=== PATIENT | male | born 1950 | race Caucasian/White ===

== ENCOUNTER 2018-11-05 07:55 | Outpatient (CLI) | payer MEDICARE, BC, SELFPAY ==
[2018-11-05 08:41] LABS: Absolute Basophil Count 0.02 k/cumm (0.0-0.2); Absolute Eosinophil Count 0.12 k/cumm (0.0-0.7); Absolute Lymphocyte Count 1.69 k/cumm (1.2-3.4); Absolute Monocyte Count 0.46 k/cumm (0.11-0.7); Basophils % 0.4; Eosinophils % 2.2; HCT 42.6 % (40.0-50.0); HGB 14.6 g/dL (13.5-17.5); Lymphocytes % 30.8; Mean Corp. HGB Concentration 34.3 g/dL (32.0-36.0); Mean Corpuscular Hemoglobin 34.8 pg (27.0-33.0); Mean Corpuscular Volume 101.4 fL (80-95); Mean Platelet Volume 8.4 fL (8.0-11.0); Monocytes % 8.4; Neutrophils % 58.2; Platelet Count 210 x1000/uL (130-400); RBC Distribution Width 12.8 % (11.8-14.1); White Blood Cell Count 5.49 k/cumm (4.4-10.8)
[2018-11-05 09:39] LABS: ALT 38 U/L (12-78); AST 44 U/L (15-37); Alkaline Phosphatase 51 U/L (46-116); Anion Gap 7.9 mmol/L (3-11); BUN 11 mg/dL (7-18); Bilirubin, Total 0.5 mg/dL (0.2-1.0); CO2 29.1 mmol/L (21.0-32.0); CREATININE 1.44 mg/dL (0.70-1.30); Calcium 9.1 mg/dL (8.5-10.1); Chloride 105 mmol/L (98-107); Glucose 150 mg/dL (70-100); Potassium 4.4 mmol/L (3.5-5.1); Sodium 142 mmol/L (136-145); Total Protein 6.7 g/dL (6.4-8.2)
[2018-11-05 09:42] LABS: Hemoglobin A1C 6.3 % (4.5-6.2)
[2018-11-06 16:02] LABS: CD3 75 % (62-87); CD4 39 % (35-63); CD8 35 % (10-35)
[2018-11-08 15:18] LABS: HIV-1 RNA Quantification Undetected copies/mL (UNDECT)
== END 2018-11-05 08:15 ==
PROVIDERS: PCP Internal Medicine; Visit Provider Nurse Practitioner Family
DX: B20 Human immunodeficiency virus [HIV] disease (principal); Z79.899 Other long term (current) drug therapy; R73.01 Impaired fasting glucose
CPT/HCPCS: 36415; 80053; 87536; 83036; 85025; 86359; 86360

== ENCOUNTER 2018-12-10 11:52 | Outpatient (CLI) | payer MEDICARE, BC, SELFPAY | END 2018-12-10 12:12 | PROVIDERS: PCP Internal Medicine; Referring Provider Nurse Practitioner Family; Visit Provider Internal Medicine Infectious Disease | DX: B20 Human immunodeficiency virus [HIV] disease (principal); Z79.899 Other long term (current) drug therapy | CPT/HCPCS: 99215 ==

== ENCOUNTER 2019-02-01 09:03 | Outpatient (CLI) | payer MEDICARE, BC, MEDICAID, SELFPAY ==
[2019-02-01 10:09] LABS: Cholesterol 264 mg/dL (50-200); HDL Cholesterol 54 mg/dL (40-60); LDL CHOLESTEROL 183 mg/dL (<100); Triglyceride 81 mg/dL (30-150)
== END 2019-02-01 09:23 ==
PROVIDERS: PCP Internal Medicine; Visit Provider Internal Medicine
DX: E78.00 Pure hypercholesterolemia, unspecified (principal)
CPT/HCPCS: 36415; 80061; 83721

== ENCOUNTER 2019-05-10 09:34 | Outpatient (CLI) | payer MEDICARE, BC, SELFPAY ==
[2019-05-10 10:47] LABS: Hemoglobin A1C 6.3 % (4.5-6.2)
[2019-05-10 11:53] LABS: ALT 35 U/L (12-78); AST 23 U/L (15-37); Albumin 4.1 g/dL (3.4-5.0); Alkaline Phosphatase 63 U/L (46-116); Anion Gap 8.4 mmol/L (3-11); BUN 12 mg/dL (7-18); Bilirubin, Total 0.6 mg/dL (0.2-1.0); CO2 27.6 mmol/L (21.0-32.0); CREATININE 1.29 mg/dL (0.70-1.30); Chloride 105 mmol/L (98-107); Estimated GFR 55.06 (mL/min/1.73m2); Glucose 143 mg/dL (70-100); Potassium 4.4 mmol/L (3.5-5.1); Sodium 141 mmol/L (136-145); Total Protein 6.8 g/dL (6.4-8.2)
[2019-05-13 14:43] LABS: HIV-1 RNA Quantification Undetected copies/mL (UNDECT)
== END 2019-05-10 09:54 ==
PROVIDERS: PCP Internal Medicine; Visit Provider Internal Medicine Infectious Disease
DX: B20 Human immunodeficiency virus [HIV] disease (principal); E11.9 Type 2 diabetes mellitus without complications; Z79.899 Other long term (current) drug therapy
CPT/HCPCS: 36415; 80053; 87536; 83036

== ENCOUNTER 2019-05-20 11:06 | Outpatient (CLI) | payer MEDICARE, BC, SELFPAY | END 2019-05-20 11:26 | PROVIDERS: PCP Internal Medicine; Referring Provider Nurse Practitioner Family; Visit Provider Nurse Practitioner Family | DX: B20 Human immunodeficiency virus [HIV] disease (principal); Z79.899 Other long term (current) drug therapy; Z23 Encounter for immunization | CPT/HCPCS: 90471; 90750; 99215 ==

== ENCOUNTER 2019-08-28 07:12 | Outpatient (CLI) | payer MEDICARE, BC, MEDICAID, SELFPAY ==
[2019-08-28 09:42] LABS: Calculated LDL 91 mg/dL; Cholesterol 163 mg/dL (50-200); HDL Cholesterol 61 mg/dL (40-60); Triglyceride 57 mg/dL (30-150)
== END 2019-08-28 07:32 ==
PROVIDERS: PCP Internal Medicine; Visit Provider Internal Medicine
DX: E78.00 Pure hypercholesterolemia, unspecified (principal)
CPT/HCPCS: 36415; 80061

== ENCOUNTER 2019-09-25 07:01 | Outpatient (CLI) | payer MEDICARE, BC, SELFPAY ==
[2019-09-25 07:31] LABS: Abs Immature Grans 0.01 k/cumm (0.0-0.09); Absolute Basophil Count 0.03 k/cumm (0.0-0.2); Absolute Lymphocyte Count 2.17 k/cumm (1.2-3.4); Absolute Monocyte Count 0.66 k/cumm (0.11-0.7); Absolute Neutrophil Count 5.85 k/cumm (1.2-6.7); Basophils % 0.3; Eosinophils % 1.1; HCT 42.4 % (40.0-50.0); HGB 14.6 g/dL (13.5-17.5); Immature Grans % 0.1; Lymphocytes % 24.6; Mean Corp. HGB Concentration 34.4 g/dL (32.0-36.0); Mean Corpuscular Hemoglobin 34.1 pg (27.0-33.0); Mean Corpuscular Volume 99.1 fL (80-95); Mean Platelet Volume 8.3 fL (8.0-11.0); Monocytes % 7.5; Neutrophils % 66.4; Platelet Count 237 x1000/uL (130-400); RBC 4.28 m/cumm (4.50-6.00); RBC Distribution Width 12.8 % (11.8-14.1); White Blood Cell Count 8.82 k/cumm (4.4-10.8)
[2019-09-25 08:00] LABS: Hemoglobin A1C 6.5 % (4.5-6.2)
[2019-09-25 08:59] LABS: ALT 31 U/L (16-63); AST 27 U/L (15-37); Albumin 4.1 g/dL (3.4-5.0); Alkaline Phosphatase 60 U/L (46-116); Anion Gap 10.2 mmol/L (3-11); BUN 20 mg/dL (7-18); Bilirubin, Total 0.7 mg/dL (0.2-1.0); CO2 27.8 mmol/L (21.0-32.0); CREATININE 1.33 mg/dL (0.70-1.30); Calcium 9.1 mg/dL (8.5-10.1); Chloride 103 mmol/L (98-107); Estimated GFR 53.16 (mL/min/1.73m2); Glucose 164 mg/dL (74-106); Potassium 4.2 mmol/L (3.5-5.1); Sodium 141 mmol/L (136-145); Total Protein 6.9 g/dL (6.4-8.2)
[2019-09-26 14:55] LABS: HIV-1 RNA Quantification 0 copies/mL (Undetected)
[2019-09-26 16:03] LABS: CD3 72 % (62-87); CD4 39 % (35-63); CD8 39 % (10-35)
== END 2019-09-25 07:21 ==
PROVIDERS: PCP Internal Medicine; Referring Provider Nurse Practitioner Family; Visit Provider Internal Medicine Infectious Disease
DX: B20 Human immunodeficiency virus [HIV] disease (principal); E11.9 Type 2 diabetes mellitus without complications; Z79.899 Other long term (current) drug therapy
CPT/HCPCS: 36415; 80053; 87536; 83036; 85025; 86359; 86360

== ENCOUNTER 2019-10-07 13:18 | Outpatient (CLI) | payer MEDICARE, BC, SELFPAY | END 2019-10-07 13:38 | PROVIDERS: PCP Internal Medicine; Referring Provider Nurse Practitioner Family; Visit Provider Internal Medicine Infectious Disease | DX: B20 Human immunodeficiency virus [HIV] disease (principal); Z79.899 Other long term (current) drug therapy; Z23 Encounter for immunization | CPT/HCPCS: 90471; 90472; 90620; 90750; 99215 ==

== ENCOUNTER 2020-06-03 15:56 | Outpatient (REF) | payer MEDICARE, BC, SELFPAY | END 2020-06-03 16:16 | LOC: LBN 15:56 | PROVIDERS: PCP Internal Medicine; Visit Provider Nurse Practitioner Adult Health | DX: R19.7 Diarrhea, unspecified (principal) | CPT/HCPCS: 87329 ==

== ENCOUNTER 2020-07-06 10:08 | Outpatient (CLI) | payer MEDICARE, BC, SELFPAY ==
--- NOTE | 2020-07-06 10:29 | CCCE_ITS ---
Date of service: 07/06/20 Time of Service: 10:29 Comprehensive Care Clinic Note Note: [facility] [address] [facility] [place] [address] [facility] Visit for Medical Follow Up Name: Roderick Lawson Medical Record [id number] Date of : 1950 Primary Care Provider: Ratna Reaves MD Date of Service: 07/06/2020 SUBJECTIVE CC/ HPI: Carroll has been feeling well and he and his partner who [facility], have been strictly following public health recommendations to avoid Covid 19. Neither have been out of the state or ill. He is here for Flu vaccine and a check in. He had a telehealth vsit with Dr. Bee in April and all was stable so blood work was deferred until late in the fall. He has been taking his HIV medications without any interruption ? no missed doses. His partner Alejandro monitors this as Carroll?s memory is impaired due to dementia. 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 ROS Constitutional: Good energy, appetite, sleep. Weight is stable. Has not had fever, chills, night sweats. Skin: Denies rash Head: Denies trauma, head pain Eyes: Denies visual disturbance, has reading glasses Ear/Nose/Throat: Negative Mouth/Teeth: UTD w dental Neck: No pain or stiffness CV: Denies chest pain, pressure, palpitations Respiratory: denies cough, dyspnea, hemoptysis GI: No N/V/D/C or rectal bleeding : Negative Musculoskeletal: Denies joint or back pain Endocrine: No polyuria, polydipsia; heat or cold intolerance Lymphatic: Has not noted any enlarged nodes Hematologic: No unusual bleeding, bruising Immunologic: CD4 count has never been below 200, no risk for OI Psychiatric: Some generalized Anxiety, No Depression, SI/HI Allergies/Sensitivities: NKDA Current Medications: Triumeq 600-50-300, Alpha Lipoic Acid 200mg tab daily, Vit D3, citalopram 20mg daily, Aricept 10mg q HS, Ginko Boloba 40 mg daily, Multivits and Probiotics Medical / Surgical History Update: Nothing new Psychiatric History Update: Memory does not seem worse Social History Update: Nothing new Employment: Retired Health Insurance: BC/BS and Medicare Substance Use: Tobacco: quit ETOH: some wine Drug Use: none Family History Update: Nothing new Immunization Needed? Influenza Health Maintenance: UTD w PCP OBJECTIVE Temp: 97.2, Pulse: 68, Respirations: 14 General: Appearing well Skin: clear Eyes: Non icteric Psychiatric: mood euthymic, affect normal Lab work results in Sep 2019 ? CD4 was 854/39% w an undetectable HIV viral load ASSESSMENT/PLAN HIV stable with antivirals and due for blood work in the late fall and MD visit scheduled: for Oct 2020 Lab work ordered: will be done late fall Provider of Care: Annie Wray, MSN, [employer]
== END 2020-07-06 10:28 ==
PROVIDERS: PCP Internal Medicine; Visit Provider Nurse Practitioner Family
DX: B20 Human immunodeficiency virus [HIV] disease (principal); Z79.899 Other long term (current) drug therapy; Z23 Encounter for immunization
CPT/HCPCS: 90471; 90686; 99213

== ENCOUNTER 2020-07-29 01:22 | Outpatient (CLI) | payer MEDICARE, BC, SELFPAY ==
[2020-07-29 12:48] LABS: Anion Gap 4.8 mmol/L (3-11); BUN 28 mg/dL (7-18); CO2 31.2 mmol/L (21.0-32.0); CREATININE 1.33 mg/dL (0.70-1.30); Calcium 8.6 mg/dL (8.5-10.1); Calculated LDL 64 mg/dL (<100); Chloride 105 mmol/L (98-107); Cholesterol 151 mg/dL (<200); Glucose 155 mg/dL (74-106); HDL Cholesterol 52 mg/dL (40-60); Potassium 4.1 mmol/L (3.5-5.1); Sodium 141 mmol/L (136-145); Triglyceride 177 mg/dL (<150)
== END 2020-07-29 01:42 ==
PROVIDERS: PCP Internal Medicine; Visit Provider Internal Medicine
DX: E78.00 Pure hypercholesterolemia, unspecified (principal); R73.01 Impaired fasting glucose
CPT/HCPCS: 36415; 80048; 80061

== ENCOUNTER 2021-02-25 03:25 | Outpatient (CLI) | payer MEDICARE, BC, SELFPAY ==
[2021-02-25 14:26] LABS: Abs Immature Grans 0.02 10^3/uL (0.0-0.06); Absolute Basophil Count 0.04 10^3/uL (0.0-0.2); Absolute Eosinophil Count 0.16 10^3/uL (0.0-0.7); Absolute Lymphocyte Count 1.72 10^3/uL (1.2-3.4); Absolute Monocyte Count 0.52 10^3/uL (0.1-0.8); Absolute Neutrophil Count 4.84 10^3/uL (1.2-6.7); Basophils % 0.5; Eosinophils % 2.2; Immature Grans % 0.3; Lymphocytes % 23.6; MCH 33.9 pg (27.0-33.0); MCHC 33.3 % (32.0-36.0); MCV 101.7 fL (80-95); MPV 8.4 fL (8.0-11.0); Monocytes % 7.1; Neutrophils % 66.3; Nucleated RBC 0 %; Platelet Count 224 10^3/uL (130-400); RBC 4.13 10^6/uL (4.36-5.78); RDW 12.7 % (11.8-14.1); RDW-SD 47.7 fL
[2021-02-25 14:38] LABS: Hemoglobin A1C 6.5 % (<5.7)
[2021-02-25 16:14] LABS: ALT 29 U/L (16-63); AST 16 U/L (15-37); Albumin 4.1 g/dL (3.4-5.0); Alkaline Phosphatase 63 U/L (46-116); Anion Gap 8.1 mmol/L (3-11); BUN 23 mg/dL (7-18); Bilirubin, Total 0.6 mg/dL (0.2-1.0); CO2 28.9 mmol/L (21.0-32.0); CREATININE 1.3 mg/dL (0.70-1.30); Calcium 8.8 mg/dL (8.5-10.1); Chloride 104 mmol/L (98-107); Estimated GFR 54.26 (mL/min/1.73m2); Glucose 111 mg/dL (74-106); Potassium 4.7 mmol/L (3.5-5.1); Sodium 141 mmol/L (136-145); Total Protein 6.5 g/dL (6.4-8.2)
[2021-03-01 10:34] LABS: 4/8 Ratio 0.78 (>=0.90); Absolute CD3 1353 Cells/uL (840-2,669); Absolute CD8 842 Cells/uL (154-1,097); CD3 73 % (56-84); CD4 35 % (31-64); CD8 45 % (9-39)
[2021-03-01 14:31] LABS: HIV 1 RNA Qualitative Undetected copies/mL (Undetected)
== END 2021-02-25 03:26 | disposition home or self-care (01) ==
LOC: LBO 03:26
PROVIDERS: PCP Internal Medicine; Visit Provider Internal Medicine Infectious Disease
DX: E11.9 Type 2 diabetes mellitus without complications (principal); B20 Human immunodeficiency virus [HIV] disease; Z79.899 Other long term (current) drug therapy
CPT/HCPCS: 36415; 80053; 87536; 83036; 85025; 86359; 86360

== ENCOUNTER 2021-07-30 02:12 | Outpatient (CLI) | payer MEDICARE, BC, SELFPAY ==
[2021-07-30 09:19] LABS: COMMENT (LAB VIEW ONLY) 295.14 mg/dL; Microalb ug/mg Crea 8.4 ug/mg Cr
[2021-07-30 09:43] LABS: Calculated LDL 78 mg/dL (<100); Cholesterol 141 mg/dL (<200); HDL Cholesterol 55 mg/dL (40-60); TSH 1.59 uIU/mL (0.36-3.74); Triglyceride 42 mg/dL (<150); Vitamin B12 1016 pg/mL (193-986)
== END 2021-07-30 02:13 | disposition home or self-care (01) ==
LOC: LBO 02:12
PROVIDERS: PCP Internal Medicine; Visit Provider Internal Medicine
DX: D75.89 Other specified diseases of blood and blood-forming organs (principal); D64.9 Anemia, unspecified; E11.9 Type 2 diabetes mellitus without complications; R53.83 Other fatigue; E78.00 Pure hypercholesterolemia, unspecified; R41.9 Unspecified symptoms and signs involving cognitive functions and awareness; Z79.899 Other long term (current) drug therapy
CPT/HCPCS: 36415; 80061; 82043; 82570; 82607; 84443

== ENCOUNTER 2021-09-14 04:01 | Outpatient (CLI) | payer MEDICARE, BC, SELFPAY ==
[2021-09-14 09:32] LABS: Abs Immature Grans 0.04 10^3/uL (0.0-0.06); Absolute Basophil Count 0.04 10^3/uL (0.0-0.2); Absolute Eosinophil Count 0.06 10^3/uL (0.0-0.7); Absolute Monocyte Count 0.42 10^3/uL (0.1-0.8); Absolute Neutrophil Count 5.64 10^3/uL (1.2-6.7); Basophils % 0.5; Eosinophils % 0.8; Immature Grans % 0.5; Lymphocytes % 17.3; MCH 33.7 pg (27.0-33.0); MCHC 33.3 % (32.0-36.0); MCV 101.2 fL (80-95); MPV 8.7 fL (8.0-11.0); Monocytes % 5.6; Neutrophils % 75.3; Nucleated RBC 0 %; Platelet Count 224 10^3/uL (130-400); RBC 4.15 10^6/uL (4.36-5.78); RDW 12.6 % (11.8-14.1); RDW-SD 47.6 fL
[2021-09-14 10:00] LABS: Hemoglobin A1C 6.3 % (<5.7)
[2021-09-14 11:19] LABS: ALT 33 U/L (16-63); AST 22 U/L (15-37); Albumin 4.1 g/dL (3.4-5.0); Alkaline Phosphatase 69 U/L (46-116); BUN 28 mg/dL (7-18); Bilirubin, Total 0.6 mg/dL (0.2-1.0); CREATININE 1.4 mg/dL (0.70-1.30); Calcium 8.6 mg/dL (8.5-10.1); Calculated LDL 77 mg/dL (<100); Chloride 103 mmol/L (98-107); Cholesterol 139 mg/dL (<200); Estimated GFR 49.82 (mL/min/1.73m2); Glucose 153 mg/dL (74-106); HDL Cholesterol 56 mg/dL (40-60); Potassium 4.8 mmol/L (3.5-5.1); Sodium 139 mmol/L (136-145); Total Protein 6.7 g/dL (6.4-8.2); Triglyceride 31 mg/dL (<150)
[2021-09-17 09:27] LABS: 4/8 Ratio 0.79 (>=0.90); Absolute CD3 1079 Cells/uL (840-2,669); Absolute CD8 670 Cells/uL (154-1,097); CD3 73 % (56-84); CD4 36 % (31-64); CD8 46 % (9-39)
[2021-09-17 12:12] LABS: HIV 1 RNA Qualitative Detected copies/mL (Undetected); HIV 1 RNA Quantitative <20 copies/mL (Undetected)
== END 2021-09-14 04:02 | disposition home or self-care (01) ==
PROVIDERS: PCP Internal Medicine; Visit Provider Nurse Practitioner Family
DX: Z79.899 Other long term (current) drug therapy (principal); B20 Human immunodeficiency virus [HIV] disease; R73.01 Impaired fasting glucose
CPT/HCPCS: 36415; 80053; 80061; 87536; 83036; 85025; 86359; 86360

== ENCOUNTER 2022-03-08 02:05 | Outpatient (CLI) | payer MEDICARE, BC, SELFPAY ==
[2022-03-08 09:26] LABS: ALT 40 U/L (16-63); AST 24 U/L (15-37); Albumin 4.2 g/dL (3.4-5.0); Alkaline Phosphatase 81 U/L (46-116); Anion Gap 9.7 mmol/L (3-11); BUN 15 mg/dL (7-18); Bilirubin, Total 0.5 mg/dL (0.2-1.0); CO2 25.3 mmol/L (21.0-32.0); CREATININE 1.3 mg/dL (0.70-1.30); Calcium 8.6 mg/dL (8.5-10.1); Chloride 107 mmol/L (98-107); Estimated GFR 54.11 (mL/min/1.73m2); Glucose 123 mg/dL (74-106); Potassium 3.8 mmol/L (3.5-5.1); Sodium 142 mmol/L (136-145); Total Protein 6.8 g/dL (6.4-8.2)
[2022-03-08 10:16] LABS: Hemoglobin A1C 6.2 % (<5.7)
[2022-03-10 15:15] LABS: HIV 1 RNA Qualitative Undetected copies/mL (Undetected)
== END 2022-03-08 02:06 | disposition home or self-care (01) ==
LOC: LBO 02:05
PROVIDERS: PCP Internal Medicine; Visit Provider Nurse Practitioner Family
DX: B20 Human immunodeficiency virus [HIV] disease (principal); Z79.899 Other long term (current) drug therapy; E11.9 Type 2 diabetes mellitus without complications
CPT/HCPCS: 36415; 80053; 87536; 83036

== ENCOUNTER 2022-03-14 10:11 | Emergency (ER) | payer MEDICARE, BC, SELFPAY ==
[2022-03-14 10:35] VITALS: BP 109/70; PULSE 98; RESP 16; TEMP 36.3; O2SAT 96
[2022-03-14 11:13] VITALS: BP 107/74; PULSE 90; RESP 17; TEMP 36.7; O2SAT 95
[2022-03-14 11:58] VITALS: RESP 18
--- NOTE | 2022-03-14 12:30 | DI.RAD_ITS ---
Exam(s) XR PORTABLE CHEST AP EXAM: XR PORTABLE CHEST AP CLINICAL HISTORY: weakness TECHNIQUE: 2D digital imaging was performed. COMPARISON: No exams were available for comparison FINDINGS: LUNGS: Clear. No pleural abnormality seen. HEART: Normal. AORTA: Normal. BONES: Unremarkable for age. Soft tissues: Unremarkable. IMPRESSION: No acute findings. DATA REPOSITORY: RADIATION DOSE DELIVERED:
--- NOTE | 2022-03-14 12:33 | W.ED.GENAD ---
Discharge Plan Disposition Patient Disposition: HOME Condition: Stable Discharge Details Clinical Impression: COVID, Hematuria Primary Care Provider: Daniella Reaves ED Provider: Juanita Tolbert Home Meds and New Rx's Prescriptions: New Paxlovid (EUA) 150 mg x 2- 100 mg tablet See Rx Instructions .ROUTE .COMPLEX Qty: 30 0RF Rx Instructions: take TWO 150 mg tablets of nirmatrelvir with ONE 100 mg tablet of ritonavir twice daily for 5 days Continued acetylcarnitin HCl-a lipoic ac 400-200 mg capsule 1 cap PO DAILY alpha lipoic acid 200 mg capsule PO DAILY citalopram 20 mg tablet 20 mg PO DAILY cholecalciferol (vitamin D3) [Vitamin D3] 125 mcg (5,000 unit) tablet 5,000 unit PO DAILY amino acids Capsule See Rx Instructions PO .COMPLEX Label Comments: mixed in tea Rx Instructions: 4 Tblsp once a day [place] Dr. Rossi Lr, [facility] epinephrine [EpiPen 2-Kevin] 0.3 mg/0.3 mL auto-injector 0.3 mg IM PRN Qty: 2 1RF Rx Instructions: inject once if stung by bee and call 911 atorvastatin 40 mg tablet 40 mg PO DAILY Qty: 90 3RF Metamucil Sugar-Free (aspart) 3.4 gram/5.8 gram powder 1 pwd PO DAILY Triumeq 1 EACH tablet 1 ea PO DAILY (DME) FreeStyle Lite Strips 1 EACH strip 1 ea Miscellaneous DAILY Qty: 90 (DME) lancets [FreeStyle Lancets] 1 EACH misc 1 ea Miscellaneous DAILY Qty: 90 memantine [Namenda XR] 14 mg capsule,sprinkle,ER 24hr 28 mg PO HS Rx Instructions: NOTE DATED 05/22/20 12/25/20 28 mg donepezil [Aricept] 10 mg tablet 20 mg PO DAILY Rx Instructions: 12/25/20 Increase to 12.5 for 2 weeks, then 15 mg nightly. If loose stools/diarrhea, can reduce back to 10 mg multivitamin 1 EACH capsule 1 ea PO DAILY Super B Complex + C 150 MG tablet 150 mg PO DAILY Discharge Instructions Instructions: Hematuria (ED), Viral Syndrome (ED) Additional Instructions: You have been prescribed Paxlovid. You will need to stop taking your atorvastatin while you are taking Paxlovid. Please do not take atorvastatin until 3 days after you have completed the entire Paxlovid course. Please return immediately to the emergency department if you develop any new or worsening symptoms, if your condition does not improve as expected, or if you become otherwise concerned. It is extremely important that you call soon as possible to make an appointment to be seen in follow-up for this visit by your primary care doctor. Referrals: Daniella Reaves MD [Primary Care Provider] - Discharge Data Discharge Date/Time-TO BE ENTERED AT DEPARTURE: 03/14/22 15:58 Medical Decision Making Roderick Lawson is a 71-year-old man with a history of HIV, hyperlipidemia, Alzheimer's disease, dws-ytivpdo-jxcykyhpw diabetes presenting to the emergency department with generalized weakness. Patient is accompanied by his roommate who also provides the history. Patient's roommate reports that over the past few days patient has been much less active than usual, has to be prompted to get up from lying down or sitting after prolonged period, which is not typical for him. Patient also seems to not be eating and drinking as much as usual over the past few days per his roommate. Is removed concerned that patient may be getting dehydrated, particularly with the high heat over the past 2 days. Patient has been able to walk unassisted and move about his house as usual. Patient denies any symptoms: No fevers, no pain, no vomiting, no shortness of breath, no cough, no urinary changes, no numbness, no focal weakness. He does report chronic unchanged diarrhea secondary to his Aricept. On exam patient is well and nontoxic-appearing. Appears mildly dehydrated. Nonfocal neurologic exam. Unclear etiology of symptoms, concern for possible occult pneumonia, UTI, metabolic/electrolyte derangement, intra-cranial process, other. Exam/history at this time is not consistent with acute coronary syndrome, sepsis, pulmonary embolism, acute aortic process, meningitis, subarachnoid hemorrhage. Plan for IV placement, screening labs, IVF hydration, CT brain. Labs reviewed, covid+. I had a lengthy discussion with Pt and his sister re: covid treatment with paxlovid vs MAB infusion vs supportive care. They elect for paxlovid. I discussed paxlovid/home medication interaction with pharmacy, who relayed only interaction on Pt's home list is with atorvastatin, which should be stopped until 3 days after completion of paxlovid course. I had a discussion with Patient and his sister regarding return to emergency department precautions, home care, and importance of outpatient follow-up. Pt and his sister verbalize understanding of the plan and are amenable. Patient discharged to home with clear plan for outpatient follow-up. All questions were answered. Disposition decision was made weighing the risks and benefits of hospitalization versus outpatient treatment, the risk for further decompensation, and the patient's wishes. Medical Records Medical records reviewed: Yes I reviewed the patient's medical records. Imaging Data Radiologic Study: Attestation: I personally reviewed and interpreted this imaging study as follows: Radiologist's impression: EXAM:? XR PORTABLE CHEST AP CLINICAL HISTORY:? weakness TECHNIQUE:? 2D digital imaging was performed. COMPARISON:? No exams were available for comparison FINDINGS: LUNGS: Clear. No pleural abnormality seen. HEART: Normal. AORTA: Normal. BONES: Unremarkable for age.? Soft tissues: Unremarkable. IMPRESSION: No acute? findings. EXAM: ? CT HEAD WO CLINICAL HISTORY: ? AMS. ? TECHNIQUE:? Imaging Protocol: Axial computed tomography images with coronal and sagittal reformatted images were created and reviewed COMPARISON:? MR MRI - BRAIN WO CONTRAST from 04/22/2015 FINDINGS: Ventricles and Extra axial spaces: Normal in size and morphology for the patient's age. Hemorrhage: None. Cerebral parenchyma: ? Zgqt-mn-dyjlcxbg atrophy.? Prominent white matter changes consistent with small vessel disease.? No acute infarct visible. Midline shift: None. Brainstem/Cerebellum: Normal. Calvarium: Normal. Visualized Paranasal sinuses/Mastoids: Mild ethmoid sinus disease. IMPRESSION: No acute abnormality. Lab Data Lab results reviewed: Yes I reviewed the patient's lab results. Labs: Laboratory Tests Range/Units 03/14/22 03/14/22 03/14/22 12:40 12:40 12:45 WBC (4.4-10.8) 10^3/uL 10.10 RBC (4.36-5.78) 10^6/uL 4.47 Hgb (13.5-17.5) g/dL 14.2 Hct (40.0-50.0) % 42.7 MCV (80-95) fL 96 H MCH (27.0-33.0) pg 31.8 MCHC (32.0-36.0) % 33.3 RDW (11.8-14.1) % 13.0 Plt Count (130-400) 10^3/uL 249 MPV (8.0-11.0) fL 10.8 Immature Gran % 0.3 Neutrophils % 56.8 Lymphocytes % 15.2 Monocytes % 7.6 Eosinophils % 19.4 Basophils % 0.7 Nucleated RBC % (0.0-0.3) % 0.0 Absolute Neutrophils (1.2-6.7) 10^3/uL 5.73 Absolute Lymphocytes (1.2-3.4) 10^3/uL 1.54 Absolute Monocytes (0.1-0.8) 10^3/uL 0.77 Absolute Eosinophils (0.0-0.7) 10^3/uL 1.96 H Absolute Basophils (0.0-0.2) 10^3/uL 0.07 Sodium (136-145) mmol/L 143 Potassium (3.5-5.1) mmol/L 3.8 Chloride (98-107) mmol/L 104 Carbon Dioxide (21.0-32.0) mmol/L 30.0 Anion Gap (3-11) mmol/L 9.0 BUN (7-18) mg/dL 14 Creatinine (0.70-1.30) mg/dL 0.9 Estimated GFR/1.73 m2 (mL/min/1.73m2) >= 60.00 Glucose (74-106) mg/dL 114 H Calcium (8.5-10.1) mg/dL 9.5 Magnesium (1.8-2.4) mg/dL 2.2 Total Bilirubin (0.2-1.0) mg/dL 1.0 AST (15-37) U/L 16 ALT (16-63) U/L 34 Alkaline Phosphatase (46-116) U/L 91 Troponin I (<or=60) ng/L < 50 Total Protein (6.4-8.2) g/dL 7.9 Albumin (3.4-5.0) g/dL 3.8 TSH (0.36-3.74) uIU/mL 2.23 Urine Color (Yellow) Urine Clarity (Clear) Urine pH (5-8) Ur Specific [place] (1.005-1.025) Urine Protein (Negative) mg/dL Urine Ketones (Negative) mg/dL Urine Blood (Negative) Urine Nitrite (Negative) Urine Bilirubin (Negative) Urine Urobilinogen (Up TO 0.2) EU/dL Ur Leukocyte Esterase (Negative) Urine RBC (0-2) HPF Urine WBC (0-5) HPF Ur Epithelial Cells (Negative) HPF Urine Crystals (Negative) HPF Urine Bacteria (Negative) HPF Urine Casts (Negative) LPF Urine Mucus (Negative) Ur Culture Indicated? Urine Glucose (Negative) mg/dL COVID-19 Source Nasopharynx SARS-CoV-2 (PCR) (Negative) Positive A Influenza Type A (PCR) (Negative) Negative Influenza Type B (PCR) (Negative) Negative RSV (PCR) (Negative) Negative Range/Units 03/14/22 13:40 WBC (4.4-10.8) 10^3/uL RBC (4.36-5.78) 10^6/uL Hgb (13.5-17.5) g/dL Hct (40.0-50.0) % MCV (80-95) fL MCH (27.0-33.0) pg MCHC (32.0-36.0) % RDW (11.8-14.1) % Plt Count (130-400) 10^3/uL MPV (8.0-11.0) fL Immature Gran % Neutrophils % Lymphocytes % Monocytes % Eosinophils % Basophils % Nucleated RBC % (0.0-0.3) % Absolute Neutrophils (1.2-6.7) 10^3/uL Absolute Lymphocytes (1.2-3.4) 10^3/uL Absolute Monocytes (0.1-0.8) 10^3/uL Absolute Eosinophils (0.0-0.7) 10^3/uL Absolute Basophils (0.0-0.2) 10^3/uL Sodium (136-145) mmol/L Potassium (3.5-5.1) mmol/L Chloride (98-107) mmol/L Carbon Dioxide (21.0-32.0) mmol/L Anion Gap (3-11) mmol/L BUN (7-18) mg/dL Creatinine (0.70-1.30) mg/dL Estimated GFR/1.73 m2 (mL/min/1.73m2) Glucose (74-106) mg/dL Calcium (8.5-10.1) mg/dL Magnesium (1.8-2.4) mg/dL Total Bilirubin (0.2-1.0) mg/dL AST (15-37) U/L ALT (16-63) U/L Alkaline Phosphatase (46-116) U/L Troponin I (<or=60) ng/L Total Protein (6.4-8.2) g/dL Albumin (3.4-5.0) g/dL TSH (0.36-3.74) uIU/mL Urine Color (Yellow) Yellow Urine Clarity (Clear) Clear Urine pH (5-8) 6.0 Ur Specific [place] (1.005-1.025) >= 1.030 H Urine Protein (Negative) mg/dL >=300 H Urine Ketones (Negative) mg/dL Negative Urine Blood (Negative) Moderate H Urine Nitrite (Negative) Negative Urine Bilirubin (Negative) Negative Urine Urobilinogen (Up TO 0.2) EU/dL 0.2 Ur Leukocyte Esterase (Negative) Negative Urine RBC (0-2) HPF 5-10 H Urine WBC (0-5) HPF 0-2 Ur Epithelial Cells (Negative) HPF Rare Urine Crystals (Negative) HPF Negative Urine Bacteria (Negative) HPF Negative Urine Casts (Negative) LPF 5-10 Fine Granular Urine Mucus (Negative) Trace Ur Culture Indicated? No Urine Glucose (Negative) mg/dL 500 H COVID-19 Source SARS-CoV-2 (PCR) (Negative) Influenza Type A (PCR) (Negative) Influenza Type B (PCR) (Negative) RSV (PCR) (Negative) HPI General Date/Time Provider Initiated Documentation: 03/14/22 10:12. Limitations to Documentation: no limitations. Information obtained by: patient, family, RN notes reviewed and old records reviewed. HPI Narrative: Roderick Lawson is a 71-year-old man with a history of HIV, hyperlipidemia, Alzheimer's disease, gvi-ygqnbto-rdxzaucke diabetes presenting to the emergency department with generalized weakness. Patient is accompanied by his roommate who also provides the history. Patient's roommate reports that over the past few days patient has been much less active than usual, has to be prompted to get up from lying down or sitting after prolonged period, which is not typical for him. Patient also seems to not be eating and drinking as much as usual over the past few days per his roommate. Is removed concerned that patient may be getting dehydrated, particularly with the high heat over the past 2 days. Patient has been able to walk unassisted and move about his house as usual. Patient denies any symptoms: No fevers, no pain, no vomiting, no shortness of breath, no cough, no urinary changes, no numbness, no focal weakness. He does report chronic unchanged diarrhea secondary to his Aricept. Related Data Home Medications Medication Instructions Recorded Confirmed abacavir 600 mg-dolutegravir 50 1 ea PO DAILY 03/02/16 03/14/22 mg-lamivudine 300 mg tablet (Triumeq) multivitamin 1 ea PO DAILY 04/19/16 03/14/22 vitamin B comp with C no.4 150 mg 150 mg PO DAILY 04/19/16 03/14/22 tablet (Super B Complex + C) blood sugar diagnostic (FreeStyle #90 strips 09/27/16 02/02/22 Lite Strips) lancets 28 gauge (FreeStyle #90 ea 09/27/16 02/02/22 Lancets) acetylcarnitine HCl 400 mg-alpha 1 cap PO DAILY 01/28/20 03/14/22 lipoic acid 200 mg capsule alpha lipoic acid 200 mg capsule mg PO DAILY 01/28/20 02/02/22 cholecalciferol (vitamin D3) 125 5,000 unit PO DAILY 01/28/20 03/14/22 mcg (5,000 unit) tablet (Vitamin D3) citalopram 20 mg tablet 20 mg PO DAILY 01/28/20 03/14/22 memantine 14 mg capsule 28 mg PO HS 12/25/20 03/14/22 sprinkle,extended release 24hr (Namenda XR) donepezil 10 mg tablet (Aricept) 20 mg PO DAILY 07/06/21 03/14/22 amino acids See Rx Instructions PO .COMPLEX 07/27/21 03/14/22 atorvastatin 40 mg tablet 40 mg PO DAILY cholesterol #90 tabs 07/27/21 03/14/22 epinephrine 0.3 mg/0.3 mL 0.3 mg (0.3 mL) IM PRN ##2 07/27/21 03/14/22 injection, auto-injector (EpiPen 2-Kevin) psyllium husk (aspartame) 3.4 1 pwd PO DAILY diarrhea 02/02/22 03/14/22 gram/5.8 gram oral powder (Metamucil Sugar-Free (aspartame)) nirmatrelvir 300 mg (150 mg x See Rx Instructions PO .COMPLEX 03/14/22 2)-ritonavir 100 mg tablet (EUA) #30 tabs (Paxlovid 300 mg () Previous Rx's Medication Instructions Recorded atorvastatin 40 mg tablet 40 mg PO DAILY cholesterol #90 tabs 07/27/21 epinephrine 0.3 mg/0.3 mL 0.3 mg (0.3 mL) IM PRN ##2 07/27/21 injection, auto-injector (EpiPen 2-Kevin) nirmatrelvir 300 mg (150 mg x See Rx Instructions PO .COMPLEX 03/14/22 2)-ritonavir 100 mg tablet (EUA) #30 tabs (Paxlovid 300 mg () Allergies Allergy/AdvReac Type Severity Reaction Status Date / Time poison kristin extract Allergy Unknown blisters, Verified 03/14/22 10:39 rash, itching Bee stings Allergy Severe anaphylaxis Uncoded 03/14/22 10:39 General Stated Complaint: GenMedical CHRIS: 3 Review of Systems Narrative: Constitutional: denies fevers Eyes: denies eye pain ENT: denies ear pain, dental pain, sore throat Cardiovascular: denies chest pain, edema Respiratory: denies SOB, cough GI: denies abdominal pain, vomiting, reports chronic unchanged diarrhea : denies flank pain MSK: denies back pain, neck pain, arthralgias, myalgias Skin: denies rash Neuro: denies headaches, numbness, reports generalized weakness PFSH All Active Problems (Updated 03/14/22 @ 15:00 by Juanita Tolbert MD) COVID (Acute) Hematuria (Acute) Snoring (Acute) 12/21/21 [facility] Sleep - Polysomography recommended and f/u 02/19/22 Macrocytosis without anemia (Acute) Type 2 diabetes mellitus without complication (Acute) 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) Depression (Chronic 03/27/15) Pure hypercholesterolemia (Acute 04/13/15) 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) [place]aphobia= fear of bears Memory loss (Acute 03/27/15) MRI 04-22-15: cerebral atrophy & white matter changes; atrophy greater than expected for age Irritable bowel syndrome with diarrhea (Acute 04/13/15) Impaired fasting glucose (Chronic 03/06/15) 03/06/15 fasting glucose 150 2013: HbA1c 6.6 HIV (human immunodeficiency virus infection) (Acute 03/27/05) HAART w/ undetectable viral load [place] cardiac risk 10-20% in next 10 years (Acute 03/02/16) 13.2% in 2016; 14.7 2019 Anemia (Acute 09/13/16) Medical History Depression HIV (human immunodeficiency virus infection) IBS (irritable bowel syndrome) Memory loss Mild dementia Surgical History (Updated 08/08/18 @ 14:37 by EXPO IA) Colonoscopy - MAC (11/21/16) Tonsillectomy and adenoidectomy Family History Mother Dementia Father Dementia Hyperlipidemia Sister Arthritis Psoriatic arthritis Brother No problems noted. Grandmother Diabetes Grandmother Diabetes Social History Smoking/Tobacco Use Status: Never Smoking risk assessment performed?: Yes Alcohol Intake: current Alcohol Intake frequency: a few times a month Drug use: Never Substance use type: does not use Household members: significant other Housing: house Number of Children: 0 Communication Needs: Corrective Lenses Education Level: other Current gender identity: male What is your relationship status?: living with partner How often do you talk on the phone with friends or family?: three or more times per week Panel score (0-1 are the most socially isolated patients): 2 What type of physical activity do you participate in: none Seatbelt use: always Drive intox 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 Working smoke detector in home: Yes Fire extinguisher in home: Yes Carbon monox detector in home: Yes Do you feel safe at home: Yes Do you feel safe in your relationship?: Yes Exam Narrative Exam Narrative: Constitutional: well and ard-abuge-rxspfnmqh, pleasant, conversing normally HENT: head atraumatic/normocephalic/normal inspection, mucous membranes moist Eyes: conjunctiva normal, sclera normal, pupils 3mm b/l Neck: no stridor, normal ROM, trachea midline Chest: normal inspection Resp: normal work of breathing, LCTAB Cardio: normal rate, normal rhythm, no murmur appreciated GI: abdomen soft, non-tender, non-distended Back: normal inspection, no rash Skin: warm, dry, normal color, no rash Neuro: alert, not altered, grossly non-focal, normal tone Ext: no edema, no posterior calf tenderness to palpation Psych: normal mood, flat affect Course Vital Signs Vital signs: Vital Signs Temperature 36.3 C L 03/14/22 10:35 Pulse 98 H 03/14/22 10:35 Respiratory Rate 16 03/14/22 10:35 Blood Pressure 109/70 03/14/22 10:35 Pulse Oximetry 96 03/14/22 10:35 Temperature 36.7 C 03/14/22 11:13 Temperature Source Oral 03/14/22 11:13 Pulse 90 03/14/22 11:13 Respiratory Rate 18 03/14/22 11:58 Respiratory Effort 03/14/22 11:58 Respiratory Depth Normal 03/14/22 11:58 Respiratory Pattern Normal 03/14/22 11:58 Blood Pressure 107/74 03/14/22 11:13 Blood Pressure Position Sitting 03/14/22 10:35 Pulse Oximetry 95 03/14/22 11:13 Oxygen Delivery Method Room Air 03/14/22 11:13 Oxygen Flow Rate 0 03/14/22 11:13 Pain Level 0 03/14/22 10:35
[2022-03-14 13:06] LABS: Abs Immature Grans 0.03 10^3/uL (0.0-0.06); Absolute Basophil Count 0.07 10^3/uL (0.0-0.2); Absolute Eosinophil Count 1.96 10^3/uL (0.0-0.7); Absolute Lymphocyte Count 1.54 10^3/uL (1.2-3.4); Absolute Monocyte Count 0.77 10^3/uL (0.1-0.8); Absolute Neutrophil Count 5.73 10^3/uL (1.2-6.7); Basophils % 0.7; Eosinophils % 19.4; HCT 42.7 % (40.0-50.0); HGB 14.2 g/dL (13.5-17.5); Immature Grans % 0.3; Lymphocytes % 15.2; MCH 31.8 pg (27.0-33.0); MCHC 33.3 % (32.0-36.0); MCV 96 fL (80-95); MPV 10.8 fL (8.0-11.0); Monocytes % 7.6; Neutrophils % 56.8; Platelet Count 249 10^3/uL (130-400); RBC 4.47 10^6/uL (4.36-5.78); RDW-SD 45.7 fL
[2022-03-14 13:20] LABS: ALT 34 U/L (16-63); AST 16 U/L (15-37); Albumin 3.8 g/dL (3.4-5.0); Alkaline Phosphatase 91 U/L (46-116); BUN 14 mg/dL (7-18); CREATININE 0.9 mg/dL (0.70-1.30); Calcium 9.5 mg/dL (8.5-10.1); Chloride 104 mmol/L (98-107); Glucose 114 mg/dL (74-106); Magnesium 2.2 mg/dL (1.8-2.4); Potassium 3.8 mmol/L (3.5-5.1); Sodium 143 mmol/L (136-145); TSH (W/Ref FT4) 2.23 uIU/mL (0.36-3.74); Total Protein 7.9 g/dL (6.4-8.2); Troponin I < 50 ng/L (<or=60)
--- NOTE | 2022-03-14 13:30 | DI.CT_ITS ---
Exam(s) CT HEAD WO EXAM: CT HEAD WO CLINICAL HISTORY: AMS. TECHNIQUE: Imaging Protocol: Axial computed tomography images with coronal and sagittal reformatted images were created and reviewed COMPARISON: MR MRI - BRAIN WO CONTRAST from 04/22/2015 FINDINGS: Ventricles and Extra axial spaces: Normal in size and morphology for the patient's age. Hemorrhage: None. Cerebral parenchyma: Javm-sd-lwljeosg atrophy. Prominent white matter changes consistent with smal l vessel disease. No acute infarct visible. Midline shift: None. Brainstem/Cerebellum: Normal. Calvarium: Normal. Visualized Paranasal sinuses/Mastoids: Mild ethmoid sinus disease. IMPRESSION: No acute abnormality. RADIATION DOSE DELIVERED: 773.54mGy.cm Total DLP 773.54mGy.cm Total DLP DATA REPOSITORY: All CT scans at this facility are submitted to the National Radiology Data Registry (NRDR) Dose Index Registry (DIR) with the [employer] (A[employer]). RADIATION OPTIMIZATION: All CT scans at this facility use at least one of these dose optimization te chniques: automated exposure control; mA and/or kV adjustment per patient size (includes targeted exa ms where dose is matched to clinical indication); or iterative reconstruction.
[2022-03-14 13:51] LABS: Bilirubin Negative (Negative); Blood Moderate (Negative); Clarity Clear (Clear); Glucose 500 mg/dL (Negative); Ketones Negative (Negative); Leukocyte Esterase Negative (Negative); Nitrite Negative (Negative); Specific Gravity >= 1.030 (1.005-1.025); Urobilinogen 0.2 EU/dL (Up TO 0.2)
[2022-03-14 13:58] LABS: Bacteria Negative HPF (Negative); C & S Indicated? No; Crystals Negative HPF (Negative); Epithelial Cells Rare HPF (Negative); Mucus Trace (Negative); WBC 0-2 HPF (0-5)
[2022-03-14 14:13] LABS: Influenza A PCR Negative (Negative); Influenza B PCR Negative (Negative); RSV PCR Negative (Negative)
[2022-03-14 14:15] LABS: COVID-19 PCR Positive (Negative); Source Nasopharynx
[2022-03-14] MEDS: Normal Saline 1,000 ML 1000 ML IV (15:32)
[2022-03-14 15:59] VITALS: PULSE 71; RESP 18; O2SAT 99
== END 2022-03-14 15:58 | disposition home or self-care (01) ==
PROVIDERS: Emergency Provider Student in an Organized Health Care Education/Training Program; PCP Internal Medicine
DX: S06.0X0A Concussion without loss of consciousness, initial encounter (principal); W18.39XA Other fall on same level, initial encounter
CPT/HCPCS: 80053; 87637; 96360; 99284; 70450; 71045; 81003; 81015; 83735; 84443; 84484; 85025

== ENCOUNTER 2022-05-09 02:22 | Outpatient (CLI) | payer MEDICARE, BC, SELFPAY ==
[2022-05-09 16:12] LABS: Abs Immature Grans 0.02 10^3/uL (0.0-0.06); Absolute Basophil Count 0.04 10^3/uL (0.0-0.2); Absolute Eosinophil Count 0.15 10^3/uL (0.0-0.7); Absolute Lymphocyte Count 2.41 10^3/uL (1.2-3.4); Absolute Monocyte Count 0.69 10^3/uL (0.1-0.8); Absolute Neutrophil Count 5.23 10^3/uL (1.2-6.7); Basophils % 0.5; Eosinophils % 1.8; HCT 40.3 % (40.0-50.0); HGB 13.9 g/dL (13.5-17.5); Immature Grans % 0.2; Lymphocytes % 28.2; MCH 34.2 pg (27.0-33.0); MCHC 34.5 % (32.0-36.0); MCV 99 fL (80-95); MPV 8.4 fL (8.0-11.0); Monocytes % 8.1; Neutrophils % 61.2; Platelet Count 238 10^3/uL (130-400); RBC 4.07 10^6/uL (4.36-5.78); RDW 12.7 % (11.8-14.1); RDW-SD 46.2 fL; WBC 8.54 10^3/uL (4.4-10.8)
[2022-05-09 16:53] LABS: ALT 67 U/L (16-63); AST 36 U/L (15-37); Albumin 3.6 g/dL (3.4-5.0); Alkaline Phosphatase 134 U/L (46-116); Anion Gap 7.8 mmol/L (3-11); BUN 17 mg/dL (7-18); Bilirubin, Total 0.3 mg/dL (0.2-1.0); CO2 26.2 mmol/L (21.0-32.0); CREATININE 1.2 mg/dL (0.70-1.30); Calcium 8.9 mg/dL (8.5-10.1); Chloride 106 mmol/L (98-107); Estimated GFR 59.35 (mL/min/1.73m2); Glucose 128 mg/dL (74-106); Potassium 3.7 mmol/L (3.5-5.1); Sodium 140 mmol/L (136-145); Total Protein 7.5 g/dL (6.4-8.2)
[2022-05-11 08:27] LABS: 4/8 Ratio 0.72 (>=0.90); Absolute CD3 2276 Cells/uL (840-2,669); Absolute CD8 1272 Cells/uL (154-1,097); CD3 83 % (56-84); CD4 33 % (31-64); CD8 46 % (9-39)
[2022-05-12 11:46] LABS: HIV 1 RNA Qualitative Undetected copies/mL (Undetected)
== END 2022-05-09 02:23 | disposition home or self-care (01) ==
LOC: LBO 02:22
PROVIDERS: PCP Internal Medicine; Visit Provider Internal Medicine Infectious Disease
DX: B20 Human immunodeficiency virus [HIV] disease (principal); Z79.899 Other long term (current) drug therapy
CPT/HCPCS: 36415; 80053; 87536; 85025; 86359; 86360

== ENCOUNTER → 2022-07-21 02:59 | Outpatient (CLI) | payer MEDICARE, BC, SELFPAY ==
--- NOTE | 2022-07-21 07:30 | DI.RAD_ITS ---
Exam(s) XR CHEST 2V PA LATERAL EXAM: XR CHEST 2V PA LATERAL CLINICAL HISTORY: r/o acute process,chronic cough, r05.3 TECHNIQUE: 2D digital imaging was performed of the chest. Two images were obtained. PA and lateral views were obtained. COMPARISON: CR CHEST 2 VIEWS PA,LAT from 11/30/2017 CR XR PORTABLE CHEST AP from 03/14/2022 FINDINGS: MEDIASTINUM: Normal. HEART: Normal. PULMONARY VASCULATURE: Normal. LUNGS: Clear. PLEURAL SPACE: No pleural effusion or pneumothorax. BONE:Within normal limits for the patient's age. OTHER FINDINGS:Nipple shadow are seen again seen. IMPRESSION: No acute pulmonary findings. DATA REPOSITORY: RADIATION DOSE DELIVERED:
== END ==
PROVIDERS: PCP Nurse Practitioner Adult Health; Visit Provider Nurse Practitioner Adult Health
DX: R05.3 Chronic cough (principal)
CPT/HCPCS: 71046

== ENCOUNTER 2022-12-07 01:53 | Outpatient (CLI) | payer MEDICARE, BC, SELFPAY ==
[2022-12-07 14:07] LABS: Abs Immature Grans 0.03 10^3/uL (0.0-0.06); Absolute Basophil Count 0.05 10^3/uL (0.0-0.2); Absolute Eosinophil Count 0.12 10^3/uL (0.0-0.7); Absolute Lymphocyte Count 2.54 10^3/uL (1.2-3.4); Absolute Monocyte Count 0.75 10^3/uL (0.1-0.8); Absolute Neutrophil Count 5.94 10^3/uL (1.2-6.7); Basophils % 0.5; Eosinophils % 1.3; HCT 40.6 % (40.0-50.0); HGB 13.9 g/dL (13.5-17.5); Immature Grans % 0.3; Lymphocytes % 26.9; MCH 33.9 pg (27.0-33.0); MCHC 34.2 % (32.0-36.0); MCV 99 fL (80-95); MPV 8.2 fL (8.0-11.0); Platelet Count 219 10^3/uL (130-400); RDW 12.8 % (11.8-14.1); WBC 9.43 10^3/uL (4.4-10.8)
[2022-12-07 18:32] LABS: ALT 43 U/L (16-63); AST 31 U/L (15-37); Albumin 3.9 g/dL (3.4-5.0); Alkaline Phosphatase 77 U/L (46-116); Anion Gap 11.2 mmol/L (3-11); BUN 25 mg/dL (7-18); Bilirubin, Total 0.5 mg/dL (0.2-1.0); CO2 24.8 mmol/L (21.0-32.0); CREATININE 1.6 mg/dL (0.70-1.30); Calcium 9.1 mg/dL (8.5-10.1); Chloride 103 mmol/L (98-107); Estimated GFR 44.93 (mL/min/1.73m2); Glucose 158 mg/dL (74-106); Potassium 4.2 mmol/L (3.5-5.1); Sodium 139 mmol/L (136-145)
[2022-12-08 16:23] LABS: 4/8 Ratio 0.82 (>=0.90); Absolute CD3 2242 Cells/uL (840-2669); Absolute CD8 1291 Cells/uL (154-1097); CD3 80 % (56-84); CD4 38 % (31-64); CD8 46 % (9-39)
== END 2022-12-07 01:54 | disposition home or self-care (01) ==
PROVIDERS: PCP Nurse Practitioner Adult Health; Visit Provider Nurse Practitioner Family
DX: E11.9 Type 2 diabetes mellitus without complications (principal); E78.00 Pure hypercholesterolemia, unspecified; R41.3 Other amnesia; K58.0 Irritable bowel syndrome with diarrhea; B20 Human immunodeficiency virus [HIV] disease; Z79.899 Other long term (current) drug therapy
CPT/HCPCS: 36415; 80048; 80053; 80061; 87389; 87536; 82043; 82570; 82607; 82746; 83036; 85025; 86359; 86360

== ENCOUNTER 2022-12-08 11:31 | Outpatient (CLI) | payer MEDICARE, BC, SELFPAY ==
[2022-12-12 14:03] LABS: HIV 1 RNA Qualitative Undetected copies/mL (Undetected)
== END 2022-12-08 11:32 | disposition home or self-care (01) ==
LOC: LBO 11:32
PROVIDERS: PCP Nurse Practitioner Adult Health; Visit Provider Nurse Practitioner Family
DX: B20 Human immunodeficiency virus [HIV] disease (principal); Z79.899 Other long term (current) drug therapy
CPT/HCPCS: 87536

== ENCOUNTER 2023-04-02 22:30 | Emergency (ER) | payer MEDICARE, BC, SELFPAY ==
[2023-04-02 22:40] VITALS: BP 140/74; PULSE 102; RESP 20; TEMP 36.7; O2SAT 95
--- NOTE | 2023-04-02 22:53 | W.ED.GENAD ---
Discharge Plan Disposition Patient Disposition: Home Condition: Good Discharge Details Clinical Impression: Dog bite of right hand Primary Care Provider: Disha Light ED Provider: Wilman Amor Home Meds and New Rx's Prescriptions: New amoxicillin-pot clavulanate 875-125 mg tablet 1 tab PO BID Qty: 20 0RF No Action acetylcarnitin HCl-a lipoic ac 400-200 mg capsule 1 cap PO DAILY alpha lipoic acid 200 mg capsule PO DAILY citalopram 20 mg tablet 20 mg PO DAILY cholecalciferol (vitamin D3) [Vitamin D3] 125 mcg (5,000 unit) tablet 5,000 unit PO DAILY amino acids Capsule See Rx Instructions PO .COMPLEX Patient Comments: mixed in tea Rx Instructions: 4 Tblsp once a day per Dr. Rossi Lr, [facility] [place] atorvastatin 40 mg tablet 40 mg PO DAILY Qty: 90 3RF epinephrine [EpiPen 2-Kevin] 0.3 mg/0.3 mL auto-injector 0.3 mg IM PRN Qty: 2 1RF Rx Instructions: inject once if stung by bee and call 911 (DME) blood-glucose meter Misc See Rx Instructions .MEDSUPPLY Qty: 1 0RF Rx Instructions: As directed to check blood glucose daily. No insulin. Freestyle lite. (DME) FreeStyle Lite Strips Strip 1 ea Miscellaneous DAILY Qty: 100 3RF Rx Instructions: Check daily for E11.9 (DME) lancets [FreeStyle Lancets] 28 gauge misc 1 ea Miscellaneous DAILY Qty: 100 3RF Rx Instructions: Daily as directed for E11.9 Triumeq 1 EACH tablet 1 ea PO DAILY memantine [Namenda XR] 14 mg capsule,sprinkle,ER 24hr 28 mg PO HS Rx Instructions: NOTE DATED 05/22/20 12/25/20 28 mg donepezil [Aricept] 10 mg tablet 20 mg PO DAILY Rx Instructions: 12/25/20 Increase to 12.5 for 2 weeks, then 15 mg nightly. If loose stools/diarrhea, can reduce back to 10 mg loratadine 10 mg tablet 10 mg PO DAILY PRN (Reason: allergic symptoms) Qty: 90 1RF Rx Instructions: for allergies & chronic cough multivitamin 1 EACH capsule 1 ea PO DAILY Super B Complex + C 150 MG tablet 150 mg PO DAILY amino acids Capsule 1 cap PO DAILY amino acids Capsule 1 cap PO DAILY Discharge Instructions Instructions: Animal Bite (ED), Care For Your Stitches (ED) Additional Instructions: Please keep the area clean and dry. Monitor closely for any redness, drainage or discharge. A For nonabsorbable sutures, please return in 7 to 10 days to have the wound reassessed and the sutures removed. If you come back to the emergency department here it will be free of charge for the suture removal. For long-term scar cosmesis, please make sure to avoid any sun to the area for the next year. Apply moisturizer or vitamin E to the area twice daily for the next 12 months for the best chance of wound/scar medication. Please take a daily multivitamin as well as this can help in wound healing. Please take the antibiotic Augmentin as directed. We have sent the remainder of the prescription to your pharmacy on file. If you notice any worsening of your symptoms, or any new symptoms such as vomiting, diarrhea, fever, chills, shortness of breath, chest pain, numbness, weakness, or fainting , please return immediately to the emergency department for reevaluation. Please follow up with your primary care provider as soon as possible for reassessment and reevaluation. As always, it was a pleasure participating in your medical care today. Referrals: Disha Light NP [Primary Care Provider] - Medical Decision Making 72-year-old male with a past medical history of HIV, type 2 diabetes, irritable bowel syndrome, dementia, who is viral levels are low to undetectable, presents today for evaluation of dog bite to the right dominant hand. Patient has a new dog, immunizations for the dog are all up-to-date including rabies. He was feeding the dog when it bit his right hand just once. The hand was washed with iodine, and the patient came in with his family members/caregivers for treatment. Patient has no complaints of numbness or tingling. No other modifying factors. No pain with movement. M demonstrates very small 1 cm laceration over the dorsal aspect of the right hand. No active bleeding. No evidence of deep tendon involvement. No evidence of neurovascular compromise. Normal strength. The area was cleaned and anesthetized. It was irrigated with copious amounts of normal saline, and then cleaned with chlorhexidine scrubs. Patient tolerated this well. Single simple interrupted suture was placed. Good wound edge reapproximation. We will bandage. We will give Augmentin here and a prescription for home use secondary to his high risk of infection with HIV. We will update his tetanus here. Dogs immunizations are otherwise up-to-date. No other concerning abnormalities noted on exam. I have extensively reviewed the treatment plan and discharge instructions with the patient and their family. I have addressed all patient concerns at this time. The patient and family was made aware of what symptoms to monitor for that would warrant a return to the emergency department. Discussed the plan with the patient and family, they demonstrate verbal understanding and agreement with our assessment and plan at this time. The documentation in this chart was dictated using [employer] dictation software. Please excuse any dictation errors. HPI General Date/Time Provider Initiated Documentation: 04/02/23 22:32. HPI Narrative: 72-year-old male with a past medical history of HIV, type 2 diabetes, irritable bowel syndrome, dementia, who is viral levels are low to undetectable, presents today for evaluation of dog bite to the right dominant hand. Patient has a new dog, immunizations for the dog are all up-to-date including rabies. He was feeding the dog when it bit his right hand just once. The hand was washed with iodine, and the patient came in with his family members/caregivers for treatment. Patient has no complaints of numbness or tingling. No other modifying factors. No pain with movement. Related Data Home Medications Medication Instructions Recorded Confirmed abacavir 600 mg-dolutegravir 50 1 ea PO DAILY 03/02/16 04/02/23 mg-lamivudine 300 mg tablet (Triumeq) multivitamin 1 ea PO DAILY 04/19/16 04/02/23 vitamin B comp with C no.4 150 mg 150 mg PO DAILY 04/19/16 04/02/23 tablet (Super B Complex + C) acetylcarnitine HCl 400 mg-alpha 1 cap PO DAILY 01/28/20 04/02/23 lipoic acid 200 mg capsule alpha lipoic acid 200 mg capsule mg PO DAILY 01/28/20 11/21/22 cholecalciferol (vitamin D3) 125 5,000 unit PO DAILY 01/28/20 04/02/23 mcg (5,000 unit) tablet (Vitamin D3) citalopram 20 mg tablet 20 mg PO DAILY 01/28/20 04/02/23 memantine 14 mg capsule 28 mg PO HS 12/25/20 04/02/23 sprinkle,extended release 24hr (Namenda XR) donepezil 10 mg tablet (Aricept) 20 mg PO DAILY 07/06/21 04/02/23 amino acids See Rx Instructions PO .COMPLEX 07/27/21 04/02/23 atorvastatin 40 mg tablet 40 mg PO DAILY cholesterol #90 tabs 07/18/22 04/02/23 epinephrine 0.3 mg/0.3 mL 0.3 mg (0.3 mL) IM PRN #2 pens 07/18/22 04/02/23 injection, auto-injector (EpiPen 2-Kevin) loratadine 10 mg tablet 10 mg PO DAILY PRN allergic 10/06/22 04/02/23 symptoms #90 tabs blood sugar diagnostic (FreeStyle #100 strips 11/24/22 04/02/23 Lite Strips) blood-glucose meter #1 ea 11/24/22 04/02/23 lancets 28 gauge (FreeStyle #100 ea 11/24/22 11/24/22 Lancets) amino acids 1 cap PO DAILY 04/02/23 04/02/23 amino acids 1 cap PO DAILY 04/02/23 04/02/23 amoxicillin 875 mg-potassium 1 tab PO BID #20 tabs 04/02/23 clavulanate 125 mg tablet Previous Rx's Medication Instructions Recorded atorvastatin 40 mg tablet 40 mg PO DAILY cholesterol #90 tabs 07/18/22 epinephrine 0.3 mg/0.3 mL 0.3 mg (0.3 mL) IM PRN #2 pens 07/18/22 injection, auto-injector (EpiPen 2-Kevin) loratadine 10 mg tablet 10 mg PO DAILY PRN allergic 10/06/22 symptoms #90 tabs blood sugar diagnostic (FreeStyle #100 strips 11/24/22 Lite Strips) blood-glucose meter #1 ea 11/24/22 lancets 28 gauge (FreeStyle #100 ea 11/24/22 Lancets) amoxicillin 875 mg-potassium 1 tab PO BID #20 tabs 04/02/23 clavulanate 125 mg tablet Allergies Allergy/AdvReac Type Severity Reaction Status Date / Time poison kristin extract Allergy Unknown blisters, Verified 11/21/22 13:57 rash, itching Bee stings Allergy Severe anaphylaxis Uncoded 11/21/22 13:57 General Stated Complaint: AnimalBite CHRIS: 4 Review of Systems All systems reviewed & are unremarkable except as noted in HPI and below PFSH All Active Problems Dog bite of right hand (Acute) Cataracts, bilateral (Acute) Macrocytosis without anemia (Acute ~07/2021) Type 2 diabetes mellitus without complication (Chronic ~2020) 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) Depression (Chronic 03/27/15) Pure hypercholesterolemia (Chronic 04/13/15) Memory loss (Chronic 03/27/15) [facility] [place] 04-22-15: cerebral atrophy & white matter changes; atrophy greater than expected for age Irritable bowel syndrome with diarrhea (Acute 04/13/15) HIV (human immunodeficiency virus infection) (Acute 03/27/05) HAART w/ undetectable viral load Medical History Anemia (09/13/16) COVID Depression [place] cardiac risk 10-20% in next 10 years (03/02/16) 13.2% in 2016; 14.7 2019 HIV (human immunodeficiency virus infection) IBS (irritable bowel syndrome) Impaired fasting glucose (03/06/15) 03/06/15 fasting glucose 150 2013: HbA1c 6.6 Memory loss Mild dementia 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 Grandmother Diabetes Grandmother Diabetes Social History Smoking/Tobacco Use Status: Never Smoking risk assessment performed?: Yes Alcohol Intake: current Alcohol Intake frequency: a few times a month Drug use: Never Substance use type: does not use Household members: significant other Housing: house Number of Children: 0 Communication Needs: Corrective Lenses Education Level: other Current gender identity: male What is your relationship status?: living with partner How often do you talk on the phone with friends or family?: three or more times per week Panel score (0-1 are the most socially isolated patients): 2 What type of physical activity do you participate in: none Seatbelt use: always 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 3.ENT: Atraumatic external nose and ears. Moist MM. Neck: Symmetric, trachea midline, No thyromegaly. 4.CVS: +S1/S2, No murmurs or gallops. Peripheral pulses 2+ and equal in all extremities. Brisk capillary refill in all extremities. 5.RESP: Unlabored respiratory effort. Clear to auscultation bilaterally. No wheezes rales or rhonchi 6.GI: Soft, Nontender/Nondistended, No hepatosplenomegaly. No guarding or rebound. 7.MSK: Normocephalic, Extremities w/o deformity or ttp No cyanosis or clubbing, Normal movement of all extremities. Right hand demonstrates small laceration and small puncture wound on the dorsal aspect of the right hand. Patient demonstrates normal flexion and extension. 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 Normal sensation. Brisk capillary refill. No active bleeding. No evidence of deep tendon involvement. 8.Skin: Patient's right hand demonstrates a 1 cm laceration on the dorsal aspect of the hand. It is superficial. No involvement for the tendons. 9.Neuro: clinical business manager II-XII grossly intact. Sensation grossly intact, no focal neurologic deficits. 10.Psych: (AAO) x3. Appropriate mood and affect Course Vital Signs Vital signs: Vital Signs Temperature 36.7 C 04/02/23 22:40 Pulse 102 H 04/02/23 22:40 Respiratory Rate 20 04/02/23 22:40 Blood Pressure 140/74 04/02/23 22:40 Pulse Oximetry 95 04/02/23 22:40 Temperature 36.7 C 04/02/23 22:40 Temperature Source Temporal Artery Scan 04/02/23 22:40 Pulse 102 H 04/02/23 22:40 Respiratory Rate 20 04/02/23 22:40 Respiratory Effort Normal 04/02/23 22:50 Blood Pressure 140/74 04/02/23 22:40 Pulse Oximetry 95 04/02/23 22:40 Oxygen Delivery Method Room Air 04/02/23 22:40 Oxygen Flow Rate 0 04/02/23 22:40 Procedures Laceration Laceration 1: Site: hand Side (If applicable): right Size (cm): 1 Description: linear Depth: simple, single layer Local Anesthetic: Lidocaine 1% Amount of anesthesia used (mL): 5 Pre-repair: wound explored, irrigated extensively and deep structures intact Skin layer closed with: nylon Size (cm): 4-0 Number of sutures: 1 Technique: simple, interrupted
--- NOTE | 2023-04-02 23:00 | NUR.NOTE ---
Addendum entered by Ana Gandhi 04/03/23 09:04: 0903 spoke with [facility] officer Danny Sanchez and she is aware of the report. Original Note: Animal bite form faxed to [facility] Health Officer at [phone]. Did not call and leave message on home phone as the time of ed service was 23:00.Nursing Note:
[2023-04-02] MEDS: Amox. 875/Clav. 125, 2 TABS/BTL 1 TAB PO (23:09)
== END 2023-04-02 23:15 | disposition home or self-care (01) ==
PROVIDERS: Emergency Provider Student in an Organized Health Care Education/Training Program; PCP Nurse Practitioner Adult Health
DX: S61.451A Open bite of right hand, initial encounter (principal); W54.0XXA Bitten by dog, initial encounter
CPT/HCPCS: 12001; 90471

== ENCOUNTER 2023-05-15 04:45 | Outpatient (CLI) | payer MEDICARE, BC, SELFPAY ==
[2023-05-15 08:33] LABS: Abs Immature Grans 0.04 10^3/uL (0.0-0.06); Absolute Basophil Count 0.06 10^3/uL (0.0-0.2); Absolute Eosinophil Count 0.22 10^3/uL (0.0-0.7); Absolute Monocyte Count 0.67 10^3/uL (0.1-0.8); Absolute Neutrophil Count 4.93 10^3/uL (1.2-6.7); Basophils % 0.6; Eosinophils % 2.3; HCT 44.5 % (40.0-50.0); HGB 15.4 g/dL (13.5-17.5); Immature Grans % 0.4; Lymphocytes % 39.1; MCH 34.3 pg (27.0-33.0); MCHC 34.6 % (32.0-36.0); MCV 99 fL (80-95); MPV 8.1 fL (8.0-11.0); Monocytes % 6.9; Neutrophils % 50.7; Platelet Count 220 10^3/uL (130-400); RBC 4.49 10^6/uL (4.36-5.78); RDW 12.1 % (11.8-14.1); RDW-SD 44.3 fL; WBC 9.72 10^3/uL (4.4-10.8)
[2023-05-15 09:03] LABS: ALT 43 U/L (16-63); AST 29 U/L (15-37); Alkaline Phosphatase 79 U/L (46-116); Anion Gap 9.4 mmol/L (3-11); BUN 16 mg/dL (7-18); Bilirubin, Total 0.5 mg/dL (0.2-1.0); CO2 28.6 mmol/L (21.0-32.0); CREATININE 1.4 mg/dL (0.70-1.30); Calcium 9.3 mg/dL (8.5-10.1); Chloride 105 mmol/L (98-107); Estimated GFR 52.74 (mL/min/1.73m2); Glucose 181 mg/dL (74-106); Potassium 4.6 mmol/L (3.5-5.1); Sodium 143 mmol/L (136-145)
[2023-05-16 11:11] LABS: Calculated LDL 81 mg/dL (<100); Cholesterol 140 mg/dL (<200); HDL Cholesterol 52 mg/dL (40-60); Triglyceride 37 mg/dL (<150)
[2023-05-16 13:04] LABS: Hemoglobin A1C 6.9 % (<5.7)
[2023-05-16 13:09] LABS: Folate > 20.0 ng/mL (8.6-20.0); Vitamin B12 > 2000 pg/mL (193-986)
[2023-05-16 15:10] LABS: 4/8 Ratio 0.89 (>=0.90); Absolute CD3 2902 Cells/uL (840-2669); Absolute CD8 1600 Cells/uL (154-1097); CD3 77 % (56-84); CD4 38 % (31-64); CD8 42 % (9-39)
[2023-05-18 11:20] LABS: HIV 1 RNA Qualitative Undetected copies/mL (Undetected)
== END 2023-05-15 04:46 | disposition home or self-care (01) ==
LOC: LBO 04:45
PROVIDERS: PCP Nurse Practitioner Adult Health; Visit Provider Nurse Practitioner Adult Health
DX: B20 Human immunodeficiency virus [HIV] disease (principal); D75.89 Other specified diseases of blood and blood-forming organs; E11.9 Type 2 diabetes mellitus without complications; E78.00 Pure hypercholesterolemia, unspecified; Z79.899 Other long term (current) drug therapy
CPT/HCPCS: 36415; 80053; 80061; 87536; 82607; 82746; 83036; 85025; 86359; 86360

== ENCOUNTER 2023-07-13 10:36 | Outpatient (CLI) | payer MEDICARE, BC, SELFPAY ==
--- NOTE | 2023-07-13 10:30 | RT.EKG_ITS ---
APPROVED REPORT Exam: Resting ECG Reason for Exam: assess rhythm Patient Location: O HR:95 bpm ECG Measurements Heart Rate 95 AXIS AZ [id number] P [id number] QRSd 76 QRS -19 QT 419 T 224 QTc 527 Conclusion Atrial fibrillation...V-rate 71-112, irreg A-activity Borderline low voltage, extremity leads...all extremity leads <0.6mV RSR' in V1 or V2, probably normal variant...small R' only Borderline ST depression, diffuse leads...ST <-0.07mV, ant/lat/inf
== END 2023-07-13 10:37 | disposition home or self-care (01) ==
LOC: DI.KIM 10:38
PROVIDERS: PCP Nurse Practitioner Adult Health; Visit Provider Nurse Practitioner Adult Health
DX: I49.9 Cardiac arrhythmia, unspecified (principal)
CPT/HCPCS: 93010

== ENCOUNTER 2023-07-13 17:32 | Outpatient (REF) | payer MEDICARE, BC, SELFPAY ==
[2023-07-13 18:23] LABS: COMMENT (LAB VIEW ONLY) 246.25 mg/dL; Microalb ug/mg Crea 26.1 ug/mg Cr
== END 2023-07-13 17:33 | disposition home or self-care (01) ==
LOC: LBN 17:32
PROVIDERS: PCP Nurse Practitioner Adult Health; Visit Provider Nurse Practitioner Adult Health
DX: E11.9 Type 2 diabetes mellitus without complications (principal); E78.00 Pure hypercholesterolemia, unspecified; D75.89 Other specified diseases of blood and blood-forming organs
CPT/HCPCS: 82043; 82570

== ENCOUNTER 2023-08-10 10:58 | Outpatient (CLI) | payer MEDICARE, BC, SELFPAY ==
--- NOTE | 2023-08-10 10:45 | RT.EKG_ITS ---
APPROVED REPORT Exam: Resting ECG Reason for Exam: A-Fib Patient Location: O HR:70 bpm ECG Measurements Heart Rate 70 [address] FL [id number] P [id number] QRSd 73 QRS -21 QT 534 T 26 QTc 577 Conclusion Atrial fibrillation...V-rate 59- 86, irreg A-activity Borderline left axis deviation...QRS axis (-15,-29) Borderline low voltage, extremity leads...all extremity leads <0.6mV Prolonged QT interval...QTc >500mS
== END 2023-08-10 10:59 | disposition home or self-care (01) ==
LOC: DI.KIM 10:59
PROVIDERS: PCP Nurse Practitioner Adult Health; Visit Provider Nurse Practitioner Adult Health
DX: I48.91 Unspecified atrial fibrillation (principal)
CPT/HCPCS: 93010

== ENCOUNTER → 2023-08-31 00:53 | Outpatient (CLI) | payer MEDICARE, BC, SELFPAY ==
--- NOTE | 2023-08-31 14:00 | DI.US_ITS ---
APPROVED REPORT EXAM: Comprehensive 2D, Doppler, and color-flow Echocardiogram Patient Location: Out-Patient Shoveler: Julianne Leach RDCS (AE) Indications: New A Fib Other Information Study Quality: Adequate Conclusion Normal left ventricular wall thickness and chamber size. Ejection fraction is 55%. Wall motion is n ormal Normal right ventricular size and systolic function Both atria are moderately enlarged There is moderate mitral and tricuspid regurgitation Estimated right ventricular systolic pressure was 30 mmHg Wall motion Left Ventricle The left ventricle is normal size. The overall left ventricular systolic function appears normal. Th ere is normal left ventricular wall thickness. There is normal LV segmental wall motion. There is no ventricular septal defect visualized. LVEF is 55%. Right Ventricle The right ventricle is normal size. The right ventricular systolic function is normal. Atria Left atrium is moderately dilated. Right atrium is moderately dilated. There is no Doppler evidence f or an atrial septal defect. Aortic Valve The aortic valve is normal in structure. There is no aortic valvular stenosis. No aortic regurgitatio n is present. Mitral Valve The mitral valve is normal in structure. No evidence of mitral valve stenosis. Moderate mitral regurg itation. Tricuspid Valve The tricuspid valve is normal in structure. There is no tricuspid valve stenosis. Moderate tricuspid regurgitation. The RVSP is 29.7 mmHg. Pulmonic Valve The pulmonary valve is normal in structure. There is no pulmonic valvular stenosis. Mild pulmonic reg urgitation. Great Vessels The aortic root is normal in size. The ascending aorta is normal in size. Aortic arch is normal in ca liber. IVC is normal in size and collapses >50% with inspiration. Pericardium There is no pericardial effusion. 2D Dimensions IVSD d PLAX 1.37 cm M: 0.6-1.2 Ao Root d 3.32 cm M: 3.1 - 3.7 LVPW d PLAX 1.38 cm M: 0.6 - 1.2 Ao Asc Diam d 3.33 cm M: 2.6 - 3.4 LVID d PLAX 4.08 cm M: 4.2 - 5.8 LVDs 3.02 cm M: 2.5 - 4.0 LV EF Teichholz 51.3 % FS 25.81 % LV EDV (Teich) 73.3 mL LV ESV (Teich) 35.7 mL M-Mode TAPSE 1.84 cm (M/F) >1.7 Auto EF LV EDV A4C 76.1 mL LV EDV A2C 84.1 mL LV EDV BP 78.8 mL LV ESV A4C 37.9 mL LV ESV A2C 42.9 mL LV ESV BP 40.3 mL LVEF(%) A4C 50.1 % LVEF(%) A2C 49.0 % LVEF(%) BP 48.8 % LV SV A4C 38.1 ml LV SV A2C 41.2 ml LV SV BP 38.5 ml LV CO A4C 3.8 L/min LV CO A2C 3.8 L/min LV CO BP 3.8 L/min HR A4C 100.85 BPM HR A2C 92.79 BPM LV EDV Index (BP) RV Strain Global Peak Long. Strain A4C 10.61 Global Peak Long. Strain A4C FW 10.21 LA Volume LA Length A4C 5.9 cm LA Length A2C 6.0 cm LA Area A4C s 23.43 cm2 LA Area A2C s 24.35 cm2 LA Vol A4C A-L 78.49 mL LA Vol A2C A-L 83.53 mL LA Vol Biplane A-L 81.6 mL LA Vol/BSA A4C A-L LA Vol/BSA A2C A-L LA Vol/BSA BP A-L 41.2 mL/m2 LA Vol A4C MOD 73.0 mL LA Vol A2C MOD 78.3 mL LA Vol BP MOD 76.1 mL RA Volume RA Area A4C 18.5 cm2 RA ESV A4C (A-L) 55.3mL RA Vol/BSA A4C A-L RA Length A4C 5.3 cm RA ESV A4C (MOD) 53.7mL LV Diastology MV E' medial 0.073 (>0.07 m/s) MV E Vmax 1.00 (0.4-1.3 m/s) MV E/E' MED 13.70 (<14) MV E' lateral 0.113 (>0.1 m/s) MV E/E' LAT 8.86 (<14) MV E' Average 0.093 m/s MV E/E'(average) 10.76 Aortic Valve AoV Vmax 0.89 m/s LVOT Vmax 0.87 m/s AoV Peak Grad 3.1 mmHg LVOT Peak Grad 3.0 mmHg AoV Area (Vmax) 3.07 cm2 LVOT VTI 0.176 m AoV VTI 0.203 m LVOT Mean Grad 1.6 mmHg AoV Mean Elvin. 0.67 m/s LVOT SV 55.07 mL AoV Mean Grad 2.0 mmHg LVOT Diam s 1.95 cm AoV Area (VTI) 2.71 cm2 Velocity Ratio 0.98 Mitral Valve MV DT 141 (160-240 msec) MV Vmax TIPS 0.94 m/s MV Mean Grad 0.8 (<2mmHg) MV VTI 0.205 m Pulmonary Valve PV Vmax 1.12 (0.5-1.5 m/s) RVOT Vmax 0.59 m/s PV Peak Grad 5.1 mmHg RVOT Peak Gr. 1.4 mmHg PV Mean Elvin 0.70 m/s RVOT VTI 0.124 m PV Mean Grad 2.2 mmHg RVOT Mean Gr. 0.8 mmHg Tricuspid Valve RA Pressure 3.00 mmHg TR Vmax 2.58 m/s TV S' 0.14 m/s TR Peak Grad 26.7 mmHg RVSP (TR) 29.7 mmHg
== END ==
PROVIDERS: PCP Nurse Practitioner Adult Health; Visit Provider Nurse Practitioner Adult Health
DX: I48.0 Paroxysmal atrial fibrillation (principal)
CPT/HCPCS: 93306

== ENCOUNTER 2023-10-11 14:32 | Emergency (ER) | payer MEDICARE, BC, SELFPAY ==
[2023-10-11] VITALS (20 sets, daily range): BP systolic 97–125; BP diastolic 71–88; PULSE 60–103; RESP 10–26; O2SAT 99
--- NOTE | 2023-10-11 15:45 | RT.EKG_ITS ---
APPROVED REPORT Exam: Resting ECG Reason for Exam: QT check Patient Location: E HR:66 bpm ECG Measurements Heart Rate 66 AX[place] MT [id number] P [id number] QRSd 92 QRS -31 QT 457 T -27 QTc 479 Conclusion Atrial fibrillation...V-rate 49- 77, irreg A-activity Inferior infarct, old...Q >35mS, II III aVF
--- NOTE | 2023-10-11 15:53 | W.ED.GENAD ---
Discharge Plan Disposition Patient Disposition: Home Condition: Stable Discharge Details Clinical Impression: Clostridium difficile diarrhea, Hypokalemia Primary Care Provider: Disha Light ED Provider: Wilman Casey Home Meds and New Rx's Prescriptions: New vancomycin 125 mg capsule 125 mg PO QID 10 Days Qty: 40 0RF potassium chloride 20 mEq tablet extended release 20 meq PO BID 10 Days Qty: 20 0RF Continued acetylcarnitin HCl-a lipoic ac 400-200 mg capsule 1 cap PO DAILY alpha lipoic acid 200 mg capsule PO DAILY cholecalciferol (vitamin D3) [Vitamin D3] 125 mcg (5,000 unit) tablet 5,000 unit PO DAILY citalopram 20 mg tablet 10 mg PO DAILY amino acids Capsule See Rx Instructions PO .COMPLEX Patient Comments: mixed in tea Rx Instructions: 4 Tblsp once a day per Dr. Rossi Lr, [facility] [place] 07/2019 vitamin B complex [B Complex-Vitamin B12] Tablet 1 tab PO DAILY psyllium husk 0.4 gram capsule 0.4 g PO DAILY MDD 0.8mg/24h Qty: 90 3RF Rx Instructions: May hold this medication if stools become too frequent apixaban 5 mg tablet 5 mg PO BID Qty: 180 3RF (DME) blood-glucose meter Misc See Rx Instructions .MEDSUPPLY Qty: 1 0RF Rx Instructions: As directed to check blood glucose daily. No insulin. Freestyle lite. (DME) FreeStyle Lite Strips Strip 1 ea Miscellaneous DAILY Qty: 100 3RF Rx Instructions: Check daily for E11.9 (DME) lancets [FreeStyle Lancets] 28 gauge misc 1 ea Miscellaneous DAILY Qty: 100 3RF Rx Instructions: Daily as directed for E11.9 (DME) Hair & pierce trim/cut 07/2023 See Rx Instructions .Route .MEDSUPPLY Qty: 1 0RF Rx Instructions: For your hygiene and health epinephrine [EpiPen 2-Kevin] 0.3 mg/0.3 mL auto-injector 0.3 mg IM PRN Qty: 2 1RF Rx Instructions: inject once if stung by bee and call 911 Triumeq 1 EACH tablet 1 ea PO DAILY memantine [Namenda XR] 14 mg capsule,sprinkle,ER 24hr 28 mg PO HS Rx Instructions: NOTE DATED 05/22/20 12/25/20 28 mg donepezil [Aricept] 10 mg tablet 20 mg PO DAILY Rx Instructions: 12/25/20 Increase to 12.5 for 2 weeks, then 15 mg nightly. If loose stools/diarrhea, can reduce back to 10 mg loratadine 10 mg tablet See Rx Instructions .ROUTE .COMPLEX Qty: 90 1RF Dose Instruction: TAKE ONE TABLET BY MOUTH EVERY DAY NEEDED FOR ALLERGIC SYMPTOMS Rx Instructions: TAKE ONE TABLET BY MOUTH EVERY DAY NEEDED FOR ALLERGIC SYMPTOMS metoprolol tartrate 25 mg tablet See Rx Instructions .ROUTE .COMPLEX Qty: 180 3RF Dose Instruction: TAKE ONE TABLET BY MOUTH TWICE A DAY Rx Instructions: TAKE ONE TABLET BY MOUTH TWICE A DAY atorvastatin 40 mg tablet See Rx Instructions .ROUTE .COMPLEX Qty: 90 3RF Dose Instruction: TAKE ONE TABLET BY MOUTH EVERY DAY FOR CHOLESTEROL Rx Instructions: TAKE ONE TABLET BY MOUTH EVERY DAY FOR CHOLESTEROL multivitamin 1 EACH capsule 1 ea PO DAILY Super B Complex + C 150 MG tablet 150 mg PO DAILY Discharge Instructions Instructions: Potassium Supplement (By mouth), Vancomycin (By mouth), Hypokalemia (ED), C. Diff (Clostridioides Difficile) Infection (ED) Additional Instructions: You were seen in the emergency department for your diarrhea of 4 days, you tested positive for C. difficile, this is a severe diarrhea bacterial pathogen that needs to be treated with vancomycin capsules by mouth, we started you on them this evening and sent the rest to [facility] in [place]. To continue for 10 days. You need to take these 4 times per day. You also had mildly low potassium which was repleted by IV potassium as well as p.o. potassium here, I have sent 10 days of potassium supplements twice per day to the pharmacy as well. You need to follow-up with a routine basic metabolic panel with your primary care provider to confirm normal potassium levels, focus on eating a high potassium diet as well. Please return to the emergency department for any profound lethargy and weakness with intractable nausea and diarrhea not responding to the vancomycin. Referrals: Disha Light CONFECTIONERY COOKER [Primary Care Provider] - Medical Decision Making This dictation utilizes [id number] dictation software and may contain unedited grammatical errors. 73y/o M presents to ED today with a chief complaint of diarrhea for 4 days, denies abdominal pain, profound lethargy, chest pain, fever, intractable nausea/vomiting. Patients partner states he has Alzheimer's - may be re-contaminating himself through fecal-oral routes, has tried BRAT diet, and Imodium without relief, just getting progressively weaker and not as jovial as he normally is over the 4 days. Patients' medical history: HIV in remission, Alzheimer's, artial fibrillation, IBS, anemia. Family and social history: noncontributory. Pertinent exam findings / vital signs include benign abdomen, soft BP- likely GI losses, benign cardiac exam, neuro baseline per partner. Differential / pathologies of concern include electrolyte abnormality, diarrhea, colitis, C. difficile, viral syndrome. Diagnostic studies of: -CBC, CMP, CRP/ESR, lactate, lipase, magnesium, C. difficile PCR, lactoferrin detection, fecal bacterial pathogens PCR, Giardia and cryptosporidium antigens, ova and parasites, urinalysis, EKG. -EKG benign -CBC - WBCs 12 -CMP SCr 1.5, hydrating -K+ 2.7, repleting by IV 40mEq over 4 hrs, 40 mEq PO, outpatient Rx -C. difficile PCR + -lipase WNL -Lactate neg <2.0 -UA suspect contamination, no nitrities/leuk esterase -EKG shows atrial fibrillation, chronic rate controlled, anticoagulated Interventions of: -IVF, IV K+, IV Mg++ as co-transport, PO vancomycin. ED Course/Assessment/Plan: 73-year-old male with Alzheimer's presents with 4 days of diarrhea, question if he is recontaminating himself with fecal oral, he is having completely liquid diarrhea, I do suspect he has possible C. difficile, no recent antibiotic exposures though. His labs are reassuring save for low potassium of 2.7 which was aggressively repleted with IV and p.o potassium, the patient has not having nausea and vomiting. He was repleted with IV fluids and his tachycardia of 98 resolved and his mildly low blood blood pressure was 97/71 improved to normotensive values, he was comfortable after 4 hours of observation by time of discharge, I did send him home on p.o. vancomycin as outpatient prescription as well as potassium supplements and recommend they follow high potassium diet with strict return criteria for worsening dehydration and continued intractable diarrhea. Advised aggressive cleaning measures in the home. Findings not consistent with sepsis, inability to tolerate p.o. intake, admittable electrolyte disturbance. Disposition of Clostridium Difficile Diarrhea, Hypokalemia. Patient verbalized understanding of the plan and return to ED criteria and engaged in shared decision making. Medical Records Medical records reviewed: Yes I reviewed the patient's medical records. Lab Data Lab results reviewed: Yes I reviewed the patient's lab results. Labs: 10/11/23 19:01 Stool Lactoferrin Latex Agglutination - Final 10/11/23 16:35 Urine - Reflex from Ua Urine Culture - Pending Laboratory Tests Range/Units 10/11/23 10/11/23 10/11/23 15:50 16:35 16:39 WBC (4.4-10.8) 10^3/uL 12.02 H RBC (4.36-5.78) 10^6/uL 4.84 Hgb (13.5-17.5) g/dL 16.6 Hct (40.0-50.0) % 47.7 MCV (80-95) fL 99 H MCH (27.0-33.0) pg 34.3 H MCHC (32.0-36.0) % 34.8 RDW (11.8-14.1) % 13.4 Plt Count (130-400) 10^3/uL 276 MPV (8.0-11.0) fL 8.7 Immature Gran % 0.3 Neutrophils % 74.8 Lymphocytes % 16.1 Monocytes % 6.8 Eosinophils % 1.5 Basophils % 0.5 Nucleated RBC % (0.0-0.3) % 0.0 Absolute Neutrophils (1.2-6.7) 10^3/uL 8.99 H Absolute Lymphocytes (1.2-3.4) 10^3/uL 1.94 Absolute Monocytes (0.1-0.8) 10^3/uL 0.82 H Absolute Eosinophils (0.0-0.7) 10^3/uL 0.18 Absolute Basophils (0.0-0.2) 10^3/uL 0.06 ESR (0-20) mm/hr 8 VBG Lactate (0.6-1.4) mmol/L 1.5 H Sodium (136-145) mmol/L 143 Potassium (3.5-5.1) mmol/L 2.7 L* Chloride (98-107) mmol/L 106 Carbon Dioxide (21.0-32.0) mmol/L 26.3 Anion Gap (3-11) mmol/L 10.7 BUN (7-18) mg/dL 15 Creatinine (0.70-1.30) mg/dL 1.5 H Est GFR (CKD-EPI 2020) (mL/min/1.73m2) 48.25 Glucose (74-106) mg/dL 262 H Calcium (8.5-10.1) mg/dL 8.9 Magnesium (1.8-2.4) mg/dL 2.3 Total Bilirubin (0.2-1.0) mg/dL 0.6 AST (15-37) U/L 24 ALT (16-63) U/L 46 Alkaline Phosphatase (46-116) U/L 70 C-Reactive Protein (0.0-0.3) mg/dL 0.22 Total Protein (6.4-8.2) g/dL 6.8 Albumin (3.4-5.0) g/dL 3.4 Lipase (16-77) U/L 29 Urine Color (Yellow) Yellow Urine Clarity (Clear) Clear Urine pH (5-8) 6.5 Ur Specific [place] (1.005-1.025) >= 1.030 H Urine Protein (Negative) mg/dL 100 H Urine Ketones (Negative) mg/dL Trace H Urine Blood (Negative) Negative Urine Nitrite (Negative) Negative Urine Bilirubin (Negative) Negative Urine Urobilinogen (Up to 0.2) mg/dL 0.2 Ur Leukocyte Esterase (Negative) Negative Urine RBC (0-2) HPF Negative Urine WBC (0-5) HPF 10-20 H Ur Epithelial Cells (Negative) HPF Negative Urine Crystals (Negative) HPF Negative Urine Bacteria (Negative) HPF Rare Urine Casts (Negative) LPF 3-5 Fine Granular Urine Mucus (Negative) Heavy Ur Culture Indicated? Yes Urine Glucose (Negative) mg/dL Negative Stl C.difficile Tox PCR (Negative) Range/Units 10/11/23 19:01 WBC (4.4-10.8) 10^3/uL RBC (4.36-5.78) 10^6/uL Hgb (13.5-17.5) g/dL Hct (40.0-50.0) % MCV (80-95) fL MCH (27.0-33.0) pg MCHC (32.0-36.0) % RDW (11.8-14.1) % Plt Count (130-400) 10^3/uL MPV (8.0-11.0) fL Immature Gran % Neutrophils % Lymphocytes % Monocytes % Eosinophils % Basophils % Nucleated RBC % (0.0-0.3) % Absolute Neutrophils (1.2-6.7) 10^3/uL Absolute Lymphocytes (1.2-3.4) 10^3/uL Absolute Monocytes (0.1-0.8) 10^3/uL Absolute Eosinophils (0.0-0.7) 10^3/uL Absolute Basophils (0.0-0.2) 10^3/uL ESR (0-20) mm/hr VBG Lactate (0.6-1.4) mmol/L Sodium (136-145) mmol/L Potassium (3.5-5.1) mmol/L Chloride (98-107) mmol/L Carbon Dioxide (21.0-32.0) mmol/L Anion Gap (3-11) mmol/L BUN (7-18) mg/dL Creatinine (0.70-1.30) mg/dL Est GFR (CKD-EPI 2020) (mL/min/1.73m2) Glucose (74-106) mg/dL Calcium (8.5-10.1) mg/dL Magnesium (1.8-2.4) mg/dL Total Bilirubin (0.2-1.0) mg/dL AST (15-37) U/L ALT (16-63) U/L Alkaline Phosphatase (46-116) U/L C-Reactive Protein (0.0-0.3) mg/dL Total Protein (6.4-8.2) g/dL Albumin (3.4-5.0) g/dL Lipase (16-77) U/L Urine Color (Yellow) Urine Clarity (Clear) Urine pH (5-8) Ur Specific [place] (1.005-1.025) Urine Protein (Negative) mg/dL Urine Ketones (Negative) mg/dL Urine Blood (Negative) Urine Nitrite (Negative) Urine Bilirubin (Negative) Urine Urobilinogen (Up to 0.2) mg/dL Ur Leukocyte Esterase (Negative) Urine RBC (0-2) HPF Urine WBC (0-5) HPF Ur Epithelial Cells (Negative) HPF Urine Crystals (Negative) HPF Urine Bacteria (Negative) HPF Urine Casts (Negative) LPF Urine Mucus (Negative) Ur Culture Indicated? Urine Glucose (Negative) mg/dL Stl C.difficile Tox PCR (Negative) Positive A HPI General Date/Time Provider Initiated Documentation: 10/11/23 15:53. HPI Narrative: 73 year-old male presents to ED today by POV/ambulating with his partner with a chief complaint of diarrhea, completely liquid, with onset for the past 4 days. Quality described as just liquid diarrhea, denies any abdominal pain, no radiation to nausea/vomiting, fever, dysuria, chest pain, fever, shortness of breath, falls, profound lethargy. Severity is described as moderate. Palliating factors include BRAT diet and Imodium without relief. Provoking factors include nothing specific, question fecal oral route as the patient has Alzheimer's and is possible re-contaminated himself, not washing properly. Events leading up to the incident/Associated Symptoms: Patient has HIV in remission. Patient is anticoagulated on Eliquis for atrial fibrillation. Related Data Home Medications Medication Instructions Recorded Confirmed abacavir 600 mg-dolutegravir 50 1 ea PO DAILY 03/02/16 10/11/23 mg-lamivudine 300 mg tablet (Triumeq) multivitamin 1 ea PO DAILY 04/19/16 10/11/23 vitamin B comp with C no.4 150 mg 150 mg PO DAILY 04/19/16 10/11/23 tablet (Super B Complex + C) acetylcarnitine HCl 400 mg-alpha 1 cap PO DAILY 01/28/20 10/11/23 lipoic acid 200 mg capsule alpha lipoic acid 200 mg capsule mg PO DAILY 01/28/20 08/10/23 cholecalciferol (vitamin D3) 125 5,000 unit PO DAILY 01/28/20 10/11/23 mcg (5,000 unit) tablet (Vitamin D3) memantine 14 mg capsule 28 mg PO HS 12/25/20 10/11/23 sprinkle,extended release 24hr (Namenda XR) donepezil 10 mg tablet (Aricept) 20 mg PO DAILY 07/06/21 10/11/23 amino acids See Rx Instructions PO .COMPLEX 07/27/21 10/11/23 blood sugar diagnostic (FreeStyle #100 strips 11/24/22 08/10/23 Lite Strips) blood-glucose meter #1 ea 11/24/22 08/10/23 lancets 28 gauge (FreeStyle #100 ea 11/24/22 08/10/23 Lancets) loratadine 10 mg tablet See Rx Instructions .Route 04/17/23 10/11/23 .COMPLEX #90 tabs psyllium husk 0.4 gram capsule 0.4 g PO DAILY constipation #90 07/13/23 10/11/23 caps vitamin B complex (B 1 tab PO DAILY 07/13/23 10/11/23 Complex-Vitamin B12 tablet) apixaban 5 mg tablet 5 mg PO BID #180 tabs 07/14/23 10/11/23 Hair & pierce trim/cut 07/2023 #1 ea 08/10/23 08/10/23 citalopram 20 mg tablet 10 mg PO DAILY 08/10/23 10/11/23 epinephrine 0.3 mg/0.3 mL 0.3 mg (0.3 mL) IM PRN #2 pens 08/10/23 10/11/23 injection, auto-injector (EpiPen 2-Kevin) metoprolol tartrate 25 mg tablet See Rx Instructions .Route 08/14/23 10/11/23 .COMPLEX #180 tabs atorvastatin 40 mg tablet See Rx Instructions .Route 08/21/23 10/11/23 .COMPLEX #90 tabs potassium chloride 20 mEq 20 meq PO BID hypokalemia 10 days 10/11/23 tablet,extended release #20 tabs vancomycin 125 mg capsule 125 mg PO QID C. difficile 10/11/23 diarrhea 10 days #40 caps Previous Rx's Medication Instructions Recorded blood sugar diagnostic (FreeStyle #100 strips 11/24/22 Lite Strips) blood-glucose meter #1 ea 11/24/22 lancets 28 gauge (FreeStyle #100 ea 11/24/22 Lancets) loratadine 10 mg tablet See Rx Instructions .Route 04/17/23 .COMPLEX #90 tabs psyllium husk 0.4 gram capsule 0.4 g PO DAILY constipation #90 07/13/23 caps apixaban 5 mg tablet 5 mg PO BID #180 tabs 07/14/23 Hair & pierce trim/cut 07/2023 #1 ea 08/10/23 epinephrine 0.3 mg/0.3 mL 0.3 mg (0.3 mL) IM PRN #2 pens 08/10/23 injection, auto-injector (EpiPen 2-Kevin) metoprolol tartrate 25 mg tablet See Rx Instructions .Route 08/14/23 .COMPLEX #180 tabs atorvastatin 40 mg tablet See Rx Instructions .Route 08/21/23 .COMPLEX #90 tabs potassium chloride 20 mEq 20 meq PO BID hypokalemia 10 days 10/11/23 tablet,extended release #20 tabs vancomycin 125 mg capsule 125 mg PO QID C. difficile 10/11/23 diarrhea 10 days #40 caps Allergies Allergy/AdvReac Type Severity Reaction Status Date / Time poison kristin extract Allergy Unknown blisters, Verified 10/11/23 14:43 rash, itching Bee stings Allergy Severe anaphylaxis Uncoded 10/11/23 14:43 General Stated Complaint: Nausea/Vomit/Diar CHRIS: 3 Review of Systems All systems reviewed & are unremarkable except as noted in HPI and below PFSH All Active Problems (Updated 10/11/23 @ 19:54 by DONA Ugarte) Hypokalemia (Acute) Clostridium difficile diarrhea (Acute) Prolonged QT interval (Acute ~06/2023) Atrial fibrillation by electrocardiogram (Acute ~06/2023) Cataracts, bilateral (Acute) Macrocytosis without anemia (Acute ~07/2021) Type 2 diabetes mellitus without complication (Chronic ~2020) 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) Depression (Chronic 03/27/15) Pure hypercholesterolemia (Chronic 04/13/15) Memory loss (Chronic 03/27/15) [facility] [place] Neuro; MRI 04-22-15: cerebral atrophy & white matter changes; atrophy greater than expected for age Irritable bowel syndrome with diarrhea (Acute 04/13/15) HIV (human immunodeficiency virus infection) (Acute 03/27/05) HAART w/ undetectable viral load Medical History COVID Snoring 12/21/21 [facility] Sleep - Polysomography recommended and f/u 02/19/22; normal sleep study 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 Grandmother Diabetes Grandmother Diabetes Social History Smoking/Tobacco Use Status: Never Smoking risk assessment performed?: Yes Alcohol Intake: current Alcohol Intake frequency: a few times a month Drug use: Never Substance use type: does not use Household members: significant other Housing: house Number of Children: 0 Communication Needs: Corrective Lenses Education Level: other Current gender identity: male What is your relationship status?: living with partner How often do you talk on the phone with friends or family?: three or more times per week Panel score (0-1 are the most socially isolated patients): 2 What type of physical activity do you participate in: none Seatbelt use: always Drive intox or ride w/intox special client bus driver: No Working smoke detector in home: Yes Fire extinguisher in home: Yes Carbon monox detector in home: Yes Do you feel safe at home: Yes Do you feel safe in your relationship?: Yes Exam Narrative Exam Narrative: GENERAL APPEARANCE: Well-nourished, non-toxic, awake and alert, atraumatic, no acute distress. SKIN: Warm, pink, dry, intact, without rashes/lesions/ulcerations. HEAD: Normocephalic, atraumatic, normal hair distribution for gender/age. EYES: Pupils PERRLA, EOMs intact without nystagmus, normal conjunctiva, no exudates on lids/lashes. ENT: Nares patent, no circumoral cyanosis, no facial swelling NECK: Supple, trachea midline, painless cervical ROM. LUNGS/CHEST: Lungs CTA bilaterally- no rhonchi/rales/wheezes, non-labored respirations, normal A/P diameter, symmetrical expansion, no chest wall deformity HEART (CV/PV): Irregular rate and rhythm without murmur, no peripheral edema, no JVD. ABDOMEN: Hyperactive bowel sounds, soft, non-distended, no guarding, no tenderness. MSK: Normal ROM, no swelling/deformity to bilateral UEs or LEs, moving all extremities without weakness, no cyanosis, spine midline without tenderness, normal curvature. NEURO: Mental Status AAOx4 - alert to person, place, time, events No facial droop, no forehead involvement. Motor: No focal weakness - strength 5/5 in bilateral UEs and LEs, proximal and distal, symmetric. Sensory: sensation intact to light touch globally. Gait normal: patient ambulated without ataxia into ED room. PSYCH: euthymic, cooperative, pleasant, appropriate speech Course 10/11/23 15:56 CRP [C-Reactive Protein] Stat Comprehensive Metabolic Panel Stat Lactate Stat Lipase Stat Magnesium Stat Complete Blood Count w/Diff [HEMO] Stat C Diff PCR [SERO] Stat Normal Saline [Saline 1000ml Bag] 1,000 ml IV BOLUS Lactoferrin Detection Stat Fecal Bacterial Pathogens PCR [SEND] Stat Giardia & Cryptosporidium Ag [SEND] Stat Ova & Parasite [SEND] Stat 10/11/23 15:57 ESR [HEMO] Stat Urinalysis [URIN] Stat 10/11/23 15:58 ED EKG Stat EKG Nursing/RT Intervention .STAT Vital Signs Vital signs: Vital Signs Pulse 98 H 10/11/23 14:40 Respiratory Rate 16 10/11/23 14:40 Blood Pressure 97/71 L 10/11/23 14:40 Pulse Oximetry 99 10/11/23 14:40 Pulse 98 H 10/11/23 14:40 Respiratory Rate 16 10/11/23 14:40 Blood Pressure 97/71 L 10/11/23 14:40 Pulse Oximetry 99 10/11/23 14:40
[2023-10-11 16:37] LABS: Abs Immature Grans 0.04 10^3/uL (0.0-0.06); Absolute Basophil Count 0.06 10^3/uL (0.0-0.2); Absolute Eosinophil Count 0.18 10^3/uL (0.0-0.7); Absolute Monocyte Count 0.82 10^3/uL (0.1-0.8); Absolute Neutrophil Count 8.99 10^3/uL (1.2-6.7); Basophils % 0.5; Eosinophils % 1.5; HCT 47.7 % (40.0-50.0); HGB 16.6 g/dL (13.5-17.5); Immature Grans % 0.3; Lymphocytes % 16.1; MCH 34.3 pg (27.0-33.0); MCHC 34.8 % (32.0-36.0); MCV 99 fL (80-95); MPV 8.7 fL (8.0-11.0); Monocytes % 6.8; Neutrophils % 74.8; Platelet Count 276 10^3/uL (130-400); RBC 4.84 10^6/uL (4.36-5.78); RDW 13.4 % (11.8-14.1); RDW-SD 49.2 fL; WBC 12.02 10^3/uL (4.4-10.8)
[2023-10-11 16:39] LABS: ESR 8 mm/hr (0-20)
[2023-10-11 16:40] LABS: Absolute Lymphocyte Count 1.94 10^3/uL (1.2-3.4)
[2023-10-11 16:42] LABS: Bilirubin Negative (Negative); Blood Negative (Negative); Clarity Clear (Clear); Glucose Negative (Negative); Ketones Trace mg/dL (Negative); Leukocyte Esterase Negative (Negative); Nitrite Negative (Negative); Specific Gravity >= 1.030 (1.005-1.025); Urobilinogen 0.2 mg/dL (Up to 0.2); pH 6.5 (5-8)
[2023-10-11] MEDS: Normal Saline 1,000 ML 1000 ML IV ×2 (16:42→17:33)
[2023-10-11 16:43] LABS: Lactate 1.5 mmol/L (0.6-1.4)
[2023-10-11 16:49] LABS: RBC Negative HPF (0-2)
[2023-10-11 16:50] LABS: Bacteria Rare HPF (Negative); Crystals Negative HPF (Negative); Epithelial Cells Negative HPF (Negative); Mucus Heavy (Negative)
[2023-10-11 16:51] LABS: C & S Indicated? Yes; Casts 3-5 Fine Granular LPF (Negative)
[2023-10-11 17:00] LABS: ALT 46 U/L (16-63); AST 24 U/L (15-37); Albumin 3.4 g/dL (3.4-5.0); Alkaline Phosphatase 70 U/L (46-116); Anion Gap 10.7 mmol/L (3-11); BUN 15 mg/dL (7-18); Bilirubin, Total 0.6 mg/dL (0.2-1.0); C-Reactive Protein 0.22 mg/dL (0.0-0.3); CO2 26.3 mmol/L (21.0-32.0); CREATININE 1.5 mg/dL (0.70-1.30); Calcium 8.9 mg/dL (8.5-10.1); Chloride 106 mmol/L (98-107); Estimated GFR 48.25 (mL/min/1.73m2); Glucose 262 mg/dL (74-106); Lipase 29 U/L (16-77); Magnesium 2.3 mg/dL (1.8-2.4); Sodium 143 mmol/L (136-145); Total Protein 6.8 g/dL (6.4-8.2)
[2023-10-11 17:03] LABS: Potassium 2.7 mmol/L (3.5-5.1)
[2023-10-11] MEDS: POTASSIUM CHLORIDE 20 MEQ/100 ML BAG 50 MEQ IVPB ×2 (17:32→20:20)
[2023-10-11] MEDS: Potassium Chloride 20 MEQ TABCR 40 MEQ PO (17:32)
[2023-10-11] MEDS: MAGNESIUM SULFATE 1 GM/100 ML BAG IVPB (17:32)
[2023-10-11 19:50] LABS: C Diff PCR Positive (Negative)
[2023-10-11] MEDS: Vancomycin 125 MG CAP PO (22:20)
[2023-10-12 23:45] LABS: Campylobacter PCR Negative (Negative); Salmonella PCR Negative (Negative); Shiga Toxin PCR Negative (Negative); Shigella/Enteroinvasive Ecoli Negative (Negative)
== END 2023-10-11 22:59 | disposition home or self-care (01) ==
PROVIDERS: Emergency Provider Physician Assistant; PCP Nurse Practitioner Adult Health
DX: A04.72 Enterocolitis due to Clostridium difficile, not specified as recurrent (principal); E87.6 Hypokalemia; R00.0 Tachycardia, unspecified; B20 Human immunodeficiency virus [HIV] disease; G30.9 Alzheimer's disease, unspecified; F02.80 Dementia in other diseases classified elsewhere, unspecified severity, without behavioral disturbance, psychotic disturbance, mood disturbance, and anxiety; I48.91 Unspecified atrial fibrillation; Z79.01 Long term (current) use of anticoagulants; Z79.899 Other long term (current) drug therapy; E11.9 Type 2 diabetes mellitus without complications
CPT/HCPCS: 80053; 83690; 85652; 87329; 87493; 87505; 93005; 96361; 96365; 96366; 96368; 99284; 81003; 81015; 83605; 83630; 83735; 85025; 86140; 87086; 87177; 93010; J3475; J3480

== ENCOUNTER 2023-10-31 11:07 | Outpatient (CLI) | payer MEDICARE, BC, SELFPAY ==
--- NOTE | 2023-10-31 11:00 | RT.EKG_ITS ---
APPROVED REPORT Exam: Resting ECG Reason for Exam: afib Patient Location: O HR:84 bpm ECG Measurements Heart Rate 84 AXIS CO [id number] P [id number] QRSd 90 QRS -15 QT 388 T 23 QTc 459 Conclusion Atrial fibrillation...? atrial activity Borderline left axis deviation...QRS axis (-15,-29) Borderline low voltage, extremity leads...all extremity leads <0.6mV I have reviewed and interpreted ECG and agree with software generated interpretation.
== END 2023-10-31 11:08 | disposition home or self-care (01) ==
LOC: DI.CARD 11:18
PROVIDERS: PCP Nurse Practitioner Adult Health; Referring Provider Nurse Practitioner Adult Health; Visit Provider Internal Medicine Interventional Cardiology
DX: I48.91 Unspecified atrial fibrillation (principal); R94.31 Abnormal electrocardiogram [ECG] [EKG]
CPT/HCPCS: 93010

== ENCOUNTER → 2023-10-31 11:07 | Outpatient (BNVA) | payer MEDICARE, BC, SELFPAY | PROVIDERS: PCP Nurse Practitioner Adult Health; Referring Provider Nurse Practitioner Adult Health; Visit Provider Internal Medicine Interventional Cardiology | DX: Z21 Asymptomatic human immunodeficiency virus [HIV] infection status (principal); E11.9 Type 2 diabetes mellitus without complications; F03.A0 Unspecified dementia, mild, without behavioral disturbance, psychotic disturbance, mood disturbance, and anxiety; I48.91 Unspecified atrial fibrillation | CPT/HCPCS: 93005; 99213 ==

== ENCOUNTER 2023-12-05 12:33 | Outpatient (CLI) | payer MEDICARE, BC, SELFPAY ==
[2023-12-05 12:53] LABS: ALT 54 U/L (16-63); AST 25 U/L (15-37); Albumin 3.8 g/dL (3.4-5.0); Alkaline Phosphatase 68 U/L (46-116); Anion Gap 10.6 mmol/L (3-11); BUN 15 mg/dL (7-18); Bilirubin, Total 0.7 mg/dL (0.2-1.0); CO2 25.4 mmol/L (21.0-32.0); CREATININE 1.4 mg/dL (0.70-1.30); Calcium 8.9 mg/dL (8.5-10.1); Chloride 109 mmol/L (98-107); Estimated GFR 52.41 (mL/min/1.73m2); Glucose 152 mg/dL (74-106); Potassium 3.6 mmol/L (3.5-5.1); Sodium 145 mmol/L (136-145); Total Protein 6.9 g/dL (6.4-8.2)
[2023-12-07 12:16] LABS: HIV 1 RNA Qualitative Undetected copies/mL (Undetected)
== END 2023-12-05 12:34 | disposition home or self-care (01) ==
LOC: LBO 12:34
PROVIDERS: PCP Nurse Practitioner Adult Health; Visit Provider Nurse Practitioner Family
DX: B20 Human immunodeficiency virus [HIV] disease (principal); Z79.899 Other long term (current) drug therapy
CPT/HCPCS: 36415; 80048; 80053; 87536

== ENCOUNTER 2023-12-18 12:20 | Outpatient (CLI) | payer MEDICARE, BC, SELFPAY ==
[2023-12-18 12:56] LABS: Abs Immature Grans 0.15 10^3/uL (0.0-0.06); Absolute Lymphocyte Count 1.22 10^3/uL (1.2-3.4); Absolute Neutrophil Count 13.07 10^3/uL (1.2-6.7); Basophils % 0.2; Eosinophils % 0.1; HCT 37.7 % (40.0-50.0); HGB 13.2 g/dL (13.5-17.5); Immature Grans % 0.9; Lymphocytes % 7.6; MCH 33.6 pg (27.0-33.0); MCV 96 fL (80-95); MPV 8.7 fL (8.0-11.0); Monocytes % 9.7; Neutrophils % 81.5; Platelet Count 249 10^3/uL (130-400); RBC 3.93 10^6/uL (4.36-5.78); RDW 12.4 % (11.8-14.1); RDW-SD 43.8 fL; WBC 16.04 10^3/uL (4.4-10.8)
[2023-12-18 12:57] LABS: Absolute Basophil Count 0.03 10^3/uL (0.0-0.2); Absolute Eosinophil Count 0.02 10^3/uL (0.0-0.7); Absolute Monocyte Count 1.56 10^3/uL (0.1-0.8)
[2023-12-18 13:08] LABS: Diff Comment Agrees w/ Instrument; RBC Morphology Normal
[2023-12-18 13:12] LABS: ALT 97 U/L (16-63); AST 55 U/L (15-37); Albumin 2.8 g/dL (3.4-5.0); Alkaline Phosphatase 81 U/L (46-116); Anion Gap 9.7 mmol/L (3-11); BUN 13 mg/dL (7-18); Bilirubin, Total 0.6 mg/dL (0.2-1.0); CO2 29.3 mmol/L (21.0-32.0); CREATININE 1.3 mg/dL (0.70-1.30); Calcium 8.7 mg/dL (8.5-10.1); Chloride 96 mmol/L (98-107); Estimated GFR 57.29 (mL/min/1.73m2); Glucose 309 mg/dL (74-106); Sodium 135 mmol/L (136-145); Total Protein 6.7 g/dL (6.4-8.2)
[2023-12-18 13:19] LABS: Potassium 2.8 mmol/L (3.5-5.1)
== END 2023-12-18 12:21 | disposition home or self-care (01) ==
LOC: LBO 12:20
PROVIDERS: Emergency Medicine; PCP Nurse Practitioner Adult Health; Visit Provider Family Medicine
DX: R41.0 Disorientation, unspecified (principal)
CPT/HCPCS: 36415; 80053; 85025

== ENCOUNTER → 2023-12-18 12:49 | Outpatient (CLI) | payer MEDICARE, BC, SELFPAY ==
--- NOTE | 2023-12-18 12:59 | DI.RAD_ITS ---
Exam(s) XR CHEST 2V PA LATERAL EXAM: XR CHEST 2V PA LATERAL CLINICAL HISTORY: confusion, HIV ,cough,r41.0. TECHNIQUE: 2D digital imaging was performed. COMPARISON: CR XR CHEST 2V PA LATERAL from 07/21/2022 FINDINGS: 2 views: Heart size is normal. The mediastinum is not widened. Lungs are clear. No infiltrates nor pleural effusions. IMPRESSION: No acute pulmonary findings. DATA REPOSITORY: RADIATION DOSE DELIVERED:
== END ==
PROVIDERS: PCP Nurse Practitioner Adult Health; Visit Provider Emergency Medicine
DX: R41.0 Disorientation, unspecified (principal)
CPT/HCPCS: 71046

== ENCOUNTER 2023-12-18 13:44 | Emergency (ER) | payer MEDICARE, BC, SELFPAY ==
[2023-12-18] VITALS (35 sets, daily range): BP systolic 90–193; BP diastolic 48–95; PULSE 90–129; RESP 12–31; TEMP 37.2–37.3; O2SAT 98
--- NOTE | 2023-12-18 14:07 | ED.GENADUL_ITS ---
Discharge Plan Disposition Patient Disposition: Home Condition: Improving Discharge Details Chief Complaint: GenMedical Clinical Impression: Fever, Rigors Primary Care Provider: Disha Light ED Provider: Stanford Parrish Home Meds and New Rx's Prescriptions: No Action acetylcarnitin HCl-a lipoic ac 400-200 mg capsule 1 cap PO DAILY alpha lipoic acid 200 mg capsule PO DAILY cholecalciferol (vitamin D3) [Vitamin D3] 125 mcg (5,000 unit) tablet 5,000 unit PO DAILY amino acids Capsule See Rx Instructions PO .COMPLEX Patient Comments: mixed in tea Rx Instructions: 4 Tblsp once a day per Dr. Rossi Lr, [facility] 07/2019 vitamin B complex [B Complex-Vitamin B12] Tablet 1 tab PO DAILY psyllium husk 0.4 gram capsule 0.4 g PO DAILY MDD 0.8mg/24h Qty: 90 3RF Rx Instructions: May hold this medication if stools become too frequent apixaban 5 mg tablet 5 mg PO BID Qty: 180 3RF citalopram 20 mg tablet 20 mg PO DAILY Patient Comments: 10/31/23 pts caregiver Alejandro states pt is taking 20 mg daily. RH (DME) blood-glucose meter Misc See Rx Instructions .MEDSUPPLY Qty: 1 0RF Rx Instructions: As directed to check blood glucose daily. No insulin. Freestyle lite. (DME) FreeStyle Lite Strips Strip 1 ea Miscellaneous DAILY Qty: 100 3RF Rx Instructions: Check daily for E11.9 (DME) lancets [FreeStyle Lancets] 28 gauge misc 1 ea Miscellaneous DAILY Qty: 100 3RF Rx Instructions: Daily as directed for E11.9 (DME) Hair & pierce trim/cut 07/2023 See Rx Instructions .Route .MEDSUPPLY Qty: 1 0RF Rx Instructions: For your hygiene and health epinephrine [EpiPen 2-Kevin] 0.3 mg/0.3 mL auto-injector 0.3 mg IM PRN Qty: 2 1RF Rx Instructions: inject once if stung by bee and call 911 Triumeq 1 EACH tablet 1 ea PO DAILY memantine [Namenda XR] 14 mg capsule,sprinkle,ER 24hr 28 mg PO HS Rx Instructions: NOTE DATED 7/31/20 3/5/21 28 mg donepezil [Aricept] 10 mg tablet 20 mg PO DAILY Rx Instructions: 12/25/20 Increase to 12.5 for 2 weeks, then 15 mg nightly. If loose stools/diarrhea, can reduce back to 10 mg loratadine 10 mg tablet See Rx Instructions .ROUTE .COMPLEX Qty: 90 1RF Dose Instruction: TAKE ONE TABLET BY MOUTH EVERY DAY NEEDED FOR ALLERGIC SYMPTOMS Rx Instructions: TAKE ONE TABLET BY MOUTH EVERY DAY NEEDED FOR ALLERGIC SYMPTOMS metoprolol tartrate 25 mg tablet See Rx Instructions .ROUTE .COMPLEX Qty: 180 3RF Dose Instruction: TAKE ONE TABLET BY MOUTH TWICE A DAY Rx Instructions: TAKE ONE TABLET BY MOUTH TWICE A DAY atorvastatin 40 mg tablet See Rx Instructions .ROUTE .COMPLEX Qty: 90 3RF Dose Instruction: TAKE ONE TABLET BY MOUTH EVERY DAY FOR CHOLESTEROL Rx Instructions: TAKE ONE TABLET BY MOUTH EVERY DAY FOR CHOLESTEROL multivitamin 1 EACH capsule 1 ea PO DAILY Super B Complex + C 150 MG tablet 150 mg PO DAILY Discharge Instructions Instructions: Fever in Adults (ED) Additional Instructions: Please follow-up with your primary care physician. Please return to the [facility] department for any worsening symptoms HPI General Date/Time Provider Initiated Documentation: 12/18/23 14:00 . HPI Narrative: 73-year-old male history of HIV, presents with acute onset tremors during outpatient imaging today, patient feels chilled, shaking. No recent illness no recent travel. No recent sick contacts. No nausea or vomiting no shortness of breath. Mild loose stool but patient does have a history of IBS. Related Data Home Medications Medication Instructions Recorded Confirmed abacavir 600 mg-dolutegravir 50 1 ea PO DAILY 03/02/16 12/18/23 mg-lamivudine 300 mg tablet (Triumeq) multivitamin 1 ea PO DAILY 04/19/16 12/18/23 vitamin B comp with C no.4 150 mg 150 mg PO DAILY 04/19/16 12/18/23 tablet (Super B Complex + C) acetylcarnitine HCl 400 mg-alpha 1 cap PO DAILY 01/28/20 12/18/23 lipoic acid 200 mg capsule alpha lipoic acid 200 mg capsule mg PO DAILY 01/28/20 12/18/23 cholecalciferol (vitamin D3) 125 5,000 unit PO DAILY 01/28/20 12/18/23 mcg (5,000 unit) tablet (Vitamin D3) memantine 14 mg capsule mg PO HS 12/25/20 12/18/23 sprinkle,extended release 24hr (Namenda XR) donepezil 10 mg tablet (Aricept) 20 mg PO DAILY 07/06/21 12/18/23 amino acids See Rx Instructions PO .COMPLEX 07/27/21 12/18/23 blood sugar diagnostic (FreeStyle #100 strips 11/24/22 12/18/23 Lite Strips) blood-glucose meter #1 ea 11/24/22 12/18/23 lancets 28 gauge (FreeStyle #100 ea 11/24/22 12/18/23 Lancets) loratadine 10 mg tablet See Rx Instructions .Route 04/17/23 12/18/23 .COMPLEX #90 tabs psyllium husk 0.4 gram capsule 0.4 g PO DAILY constipation #90 07/13/23 12/18/23 caps vitamin B complex (B 1 tab PO DAILY 07/13/23 12/18/23 Complex-Vitamin B12 tablet) apixaban 5 mg tablet 5 mg PO BID #180 tabs 07/14/23 12/18/23 Hair & pierce trim/cut 07/2023 #1 ea 08/10/23 12/18/23 epinephrine 0.3 mg/0.3 mL 0.3 mg (0.3 mL) IM PRN #2 pens 08/10/23 12/18/23 injection, auto-injector (EpiPen 2-Kevin) metoprolol tartrate 25 mg tablet See Rx Instructions .Route 08/14/23 12/18/23 .COMPLEX #180 tabs atorvastatin 40 mg tablet See Rx Instructions .Route 08/21/23 12/18/23 .COMPLEX #90 tabs citalopram 20 mg tablet 20 mg PO DAILY 10/31/23 12/18/23 Previous Rx's Medication Instructions Recorded blood sugar diagnostic (FreeStyle #100 strips 11/24/22 Lite Strips) blood-glucose meter #1 ea 11/24/22 lancets 28 gauge (FreeStyle #100 ea 11/24/22 Lancets) loratadine 10 mg tablet See Rx Instructions .Route 04/17/23 .COMPLEX #90 tabs psyllium husk 0.4 gram capsule 0.4 g PO DAILY constipation #90 07/13/23 caps apixaban 5 mg tablet 5 mg PO BID #180 tabs 07/14/23 Hair & pierce trim/cut 07/2023 #1 ea 08/10/23 epinephrine 0.3 mg/0.3 mL 0.3 mg (0.3 mL) IM PRN #2 pens 08/10/23 injection, auto-injector (EpiPen 2-Kevin) metoprolol tartrate 25 mg tablet See Rx Instructions .Route 08/14/23 .COMPLEX #180 tabs atorvastatin 40 mg tablet See Rx Instructions .Route 08/21/23 .COMPLEX #90 tabs Allergies Allergy/AdvReac Type Severity Reaction Status Date / Time poison kristin extract Allergy Unknown blisters, Verified 12/18/23 11:43 rash, itching Bee stings Allergy Severe anaphylaxis Uncoded 12/18/23 11:43 General Stated Complaint: GenMedical CHRIS: 3 Review of Systems Narrative: Review of Systems Constitutional: Chills, rigors Eyes: negative ENT: negative Cardiovascular: negative Respiratory: negative Gastrointestinal: Loose stool : negative Musculoskeletal: negative Skin: negative Neurologic: negative Psych: negative Exam Narrative Exam Narrative: Physical Examination General: alert, awake, cooperative, rigors, appears uncomfortable HEENT: normocephalic, atraumatic; PERRL, EOM intact, conjunctiva normal; no nasal discharge; dry oral mucosa Neck: supple, trachea midline; full ROM Chest: normal to inspection Respiratory: normal respiratory effort, speaking in full sentences, clear to auscultation, no wheezing, rales or rhonchi Cardiac: regular rate, regular rhythm, S1S2 intact, no murmurs rubs or gallops GI: abdomen soft, non-tender, non-distended; no palpable mass or hepatosplenomegaly Skin: no lesions, rashes or trauma appreciated Neuro: AAOx3, normal speech, moving all extremities Extremities: Moving all extremities, no deformity Psych: Appropriate mood and affect Course Vital Signs Vital signs: Vital Signs Temperature 37.2 C 12/18/23 13:54 Pulse 129 H 12/18/23 13:54 Respiratory Rate 18 12/18/23 13:54 Blood Pressure 193/95 H 12/18/23 13:54 Pulse Oximetry 98 12/18/23 13:54 Temperature 37.2 C 12/18/23 13:54 Temperature Source Tympanic 12/18/23 13:54 Pulse 129 H 12/18/23 13:54 Respiratory Rate 18 12/18/23 13:54 Blood Pressure 193/95 H 12/18/23 13:54 Blood Pressure Position Supine 12/18/23 13:54 Pulse Oximetry 98 12/18/23 13:54 Oxygen Delivery Method Room Air 12/18/23 13:54 Oxygen Flow Rate 0 12/18/23 13:54 Comment a/o x1 as baseline for advanced and worsening dementia 12/18/23 13:54 Lab/Test Results Lab/Test Results: 12/18/23 14:00 Blood Blood Culture - Pending 12/18/23 14:00 Blood Blood Culture - Pending Medical Decision Making 73-year-old male history of HIV, IBS, presents with acute onset rigors during outpatient imaging today, no nausea vomiting or shortness of breath no cough, patient has had some loose stool, no recent travel no recent sick contacts, patient alert oriented following commands appears clinically dry with dry oral mucosa and skin. Noted to be tachycardic on arrival. Nonmeningeal. Consider viral illness such as influenza or COVID-19 versus viral gastroenteritis versus colitis versus UTI versus pneumonia versus electrolyte derangement versus dehydration. Will obtain screening labs blood cultures urinalysis chest x-ray fluids antipyretics analgesia close reassessment of symptoms. 17: 01 patient resting comfortably feeling much better, rigors have ceased. Neurologically intact. Have ordered repeat CT with contrast as this was the outpatient order ordered for him when he presented today. 17: 39 resting comfortably no acute distress. Patient has defervesced, heart rate has normalized. Alert interactive no acute distress. Labs and imaging largely unremarkable. Home care instructions and return precautions given. Patient is close follow-up with primary care team. Quality:SDOH Health Related Social Needs: No Data to Display PFSH All Active Problems (Updated 12/18/23 @ 17:40 by Stanford Parrish MD) Rigors (Acute) Fever (Acute) Confusion (Acute) Prolonged QT interval (Acute ~06/2023) Atrial fibrillation by electrocardiogram (Acute ~06/2023) Cataracts, bilateral (Acute) Macrocytosis without anemia (Acute ~07/2021) Type 2 diabetes mellitus without complication (Chronic ~2020) 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) Depression (Chronic 03/27/15) Pure hypercholesterolemia (Chronic 04/13/15) Memory loss (Chronic 03/27/15) [facility] Neuro; MRI 04-22-15: cerebral atrophy & white matter changes; atrophy greater than expected for age Irritable bowel syndrome with diarrhea (Acute 04/13/15) HIV (human immunodeficiency virus infection) (Acute 03/27/05) HAART w/ undetectable viral load Medical History COVID Snoring 12/21/21 [facility] Sleep - Polysomography recommended and f/u 02/19/22; normal sleep study 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 Grandmother Diabetes Grandmother Diabetes Social History Smoking/Tobacco Use Status: Never Smoking risk assessment performed?: Yes Alcohol Intake: current Alcohol Intake frequency: a few times a month Drug use: Never Substance use type: does not use Household members: significant other Housing: house Number of Children: 0 Communication Needs: Corrective Lenses Education Level: other Current gender identity: male What is your relationship status?: living with partner How often do you talk on the phone with friends or family?: three or more times per week Panel score (0-1 are the most socially isolated patients): 2 What type of physical activity do you participate in: none Seatbelt use: always Drive intox or ride w/intox hazardous materials driver: No Working smoke detector in home: Yes Fire extinguisher in home: Yes Carbon monox detector in home: Yes Do you feel safe at home: Yes Do you feel safe in your relationship?: Yes
[2023-12-18 14:29] LABS: Abs Immature Grans 0.04 10^3/uL (0.0-0.06); HCT 38.4 % (40.0-50.0); HGB 13.2 g/dL (13.5-17.5); MCH 33.3 pg (27.0-33.0); MCHC 34.4 % (32.0-36.0); MCV 97 fL (80-95); MPV 8.7 fL (8.0-11.0); Platelet Count 242 10^3/uL (130-400); RBC 3.96 10^6/uL (4.36-5.78); RDW 12.4 % (11.8-14.1); RDW-SD 44.4 fL; WBC 8.02 10^3/uL (4.4-10.8)
[2023-12-18] MEDS: ACETAMINOPHEN 1,000 MG/100 ML BTL 400 MG IVPB (14:31)
[2023-12-18] MEDS: Normal Saline 500 ML 1000 ML IV (14:31)
[2023-12-18 14:41] LABS: PTT Activated 27.6 sec (23.6-32.8); Prothrombin Time 13.2 sec (9.1-11.1)
[2023-12-18 14:44] LABS: INR 1.3 (0.9-1.1)
[2023-12-18 14:46] LABS: Absolute Lymphocyte Count 0.72 10^3/uL (1.2-3.4); Absolute Monocyte Count 0.08 10^3/uL (0.1-0.8); Absolute Neutrophil Count 7.22 10^3/uL (1.2-6.7); Atypical Lymphocytes % 4; Bands % 0
[2023-12-18 14:47] LABS: Diff Comment Manual Differential; RBC Morphology Normal
[2023-12-18 14:58] LABS: ALT 101 U/L (16-63); AST 64 U/L (15-37); Albumin 2.9 g/dL (3.4-5.0); Alkaline Phosphatase 92 U/L (46-116); Anion Gap 13.2 mmol/L (3-11); BUN 13 mg/dL (7-18); Bilirubin, Total 0.9 mg/dL (0.2-1.0); CO2 27.8 mmol/L (21.0-32.0); CREATININE 1.4 mg/dL (0.70-1.30); Calcium 8.6 mg/dL (8.5-10.1); Chloride 93 mmol/L (98-107); Estimated GFR 52.41 (mL/min/1.73m2); Glucose 324 mg/dL (74-106); Magnesium 2.3 mg/dL (1.8-2.4); Potassium 3.5 mmol/L (3.5-5.1); Sodium 134 mmol/L (136-145); TSH (W/Ref FT4) 1.01 uIU/mL (0.36-3.74); Total Protein 7.1 g/dL (6.4-8.2)
[2023-12-18 15:13] LABS: COVID-19 PCR Negative (Negative); Influenza A PCR Negative (Negative); Influenza B PCR Negative (Negative); RSV PCR Negative (Negative)
[2023-12-18 15:17] LABS: Source NASOPHARYNX
[2023-12-18 16:32] LABS: Bilirubin Negative (Negative); Blood Trace-lysed (Negative); Clarity Clear (Clear); Glucose 500 mg/dL (Negative); Ketones Negative (Negative); Leukocyte Esterase Negative (Negative); Nitrite Negative (Negative); Specific Gravity 1.025 (1.005-1.025); Urobilinogen 0.2 mg/dL (Up to 0.2)
[2023-12-18 16:38] LABS: Bacteria Negative HPF (Negative); C & S Indicated? No; Casts Negative LPF (Negative); Crystals Negative HPF (Negative); Epithelial Cells Rare HPF (Negative); Mucus Trace (Negative); RBC 0-2 HPF (0-2); WBC 0-2 HPF (0-5)
--- NOTE | 2023-12-18 17:02 | DI.CT_ITS ---
Exam(s) CT HEAD WO EXAM: CT HEAD WO CLINICAL HISTORY: tremors, hx HIV. TECHNIQUE: Imaging Protocol: Axial computed tomography images with coronal and sagittal reformatted images were created and reviewed COMPARISON: CT CT HEAD WO from 03/14/2022 FINDINGS: Ventricles and Extra axial spaces: Normal in size and morphology for the patient's age. Hemorrhage: None. Cerebral parenchyma: No evidence of acute infarct or mass. Njia-[id number] atrophy. Prominent whi te matter changes consistent with small vessel disease. Midline shift: None. Brainstem/Cerebellum: Normal. Calvarium: Normal. Visualized Paranasal sinuses:Clear. Mastoids: Clear. Soft Tissues: Unremarkable. ORBITS: Unremarkable. PITUITARY: Normal. IMPRESSION: No acute intracranial process. RADIATION DOSE DELIVERED: 753.77mGy.cm Total DLP DATA REPOSITORY: All CT scans at this facility are submitted to the National Radiology Data Registry (NRDR) Dose Index Registry (DIR) with the [employer] (A[employer]). RADIATION OPTIMIZATION: All CT scans at this facility use at least one of these dose optimization te chniques: automated exposure control; mA and/or kV adjustment per patient size (includes targeted exa ms where dose is matched to clinical indication); or iterative reconstruction.
--- NOTE | 2023-12-19 12:43 | ED.PROG_ITS ---
Date of service: 12/19/23 Time of Service: 12:44 Medical Decision Making Contacted by lab, the patient's blood culture from yesterday is positive for gram-positive rods. Typically a contaminant however given the patient's age, symptoms and HIV status would be concerned for a true positive result. I discussed with the sister and she does think that he is improving today. He has an appointment with his primary care doctor this afternoon. I discussed with them that results and a potential plan for the patient. He will be seen in clinic this afternoon, reevaluated by the provider. They will order outpatient blood cultures for the patient to get, if the provider that sees him this afternoon feels he needs to be reseen or admitted through the emergency department, I encouraged them to do so. Quality:SDOH Health Related Social Needs: No Data to Display Discharge Plan Disposition Patient Disposition: Home Condition: Improving Discharge Details Clinical Impression: Fever, Rigors Primary Care Provider: Disha Light ED Provider: Stanford Parrish Home Meds and New Rx's Prescriptions: No Action acetylcarnitin HCl-a lipoic ac 400-200 mg capsule 1 cap PO DAILY alpha lipoic acid 200 mg capsule PO DAILY cholecalciferol (vitamin D3) [Vitamin D3] 125 mcg (5,000 unit) tablet 5,000 unit PO DAILY amino acids Capsule See Rx Instructions PO .COMPLEX Patient Comments: mixed in tea Rx Instructions: 4 Tblsp once a day per Dr. Rossi Lr, [facility] 07/2019 vitamin B complex [B Complex-Vitamin B12] Tablet 1 tab PO DAILY psyllium husk 0.4 gram capsule 0.4 g PO DAILY MDD 0.8mg/24h Qty: 90 3RF Rx Instructions: May hold this medication if stools become too frequent apixaban 5 mg tablet 5 mg PO BID Qty: 180 3RF citalopram 20 mg tablet 20 mg PO DAILY Patient Comments: 10/31/23 pts caregiver Alejandro states pt is taking 20 mg daily. RH (DME) blood-glucose meter Misc See Rx Instructions .MEDSUPPLY Qty: 1 0RF Rx Instructions: As directed to check blood glucose daily. No insulin. Freestyle lite. (DME) FreeStyle Lite Strips Strip 1 ea Miscellaneous DAILY Qty: 100 3RF Rx Instructions: Check daily for E11.9 (DME) lancets [FreeStyle Lancets] 28 gauge misc 1 ea Miscellaneous DAILY Qty: 100 3RF Rx Instructions: Daily as directed for E11.9 (DME) Hair & pierce trim/cut 07/2023 See Rx Instructions .Route .MEDSUPPLY Qty: 1 0RF Rx Instructions: For your hygiene and health epinephrine [EpiPen 2-Kevin] 0.3 mg/0.3 mL auto-injector 0.3 mg IM PRN Qty: 2 1RF Rx Instructions: inject once if stung by bee and call 911 Triumeq 1 EACH tablet 1 ea PO DAILY memantine [Namenda XR] 14 mg capsule,sprinkle,ER 24hr 28 mg PO HS Rx Instructions: NOTE DATED 05/22/20 12/25/20 28 mg donepezil [Aricept] 10 mg tablet 20 mg PO DAILY Rx Instructions: 12/25/20 Increase to 12.5 for 2 weeks, then 15 mg nightly. If loose stools/diarrhea, can reduce back to 10 mg loratadine 10 mg tablet See Rx Instructions .ROUTE .COMPLEX Qty: 90 1RF Dose Instruction: TAKE ONE TABLET BY MOUTH EVERY DAY NEEDED FOR ALLERGIC SYMPTOMS Rx Instructions: TAKE ONE TABLET BY MOUTH EVERY DAY NEEDED FOR ALLERGIC SYMPTOMS metoprolol tartrate 25 mg tablet See Rx Instructions .ROUTE .COMPLEX Qty: 180 3RF Dose Instruction: TAKE ONE TABLET BY MOUTH TWICE A DAY Rx Instructions: TAKE ONE TABLET BY MOUTH TWICE A DAY atorvastatin 40 mg tablet See Rx Instructions .ROUTE .COMPLEX Qty: 90 3RF Dose Instruction: TAKE ONE TABLET BY MOUTH EVERY DAY FOR CHOLESTEROL Rx Instructions: TAKE ONE TABLET BY MOUTH EVERY DAY FOR CHOLESTEROL multivitamin 1 EACH capsule 1 ea PO DAILY Super B Complex + C 150 MG tablet 150 mg PO DAILY Discharge Instructions Instructions: Fever in Adults (ED) Additional Instructions: Please follow-up with your primary care physician. Please return to the emergency department for any worsening symptoms Discharge Data Discharge Date/Time-TO BE ENTERED AT DEPARTURE: 12/18/23 17:54
--- NOTE | 2023-12-19 13:43 | NUR.NOTE ---
Nursing Note: this RN took crit value report from Arti Perez. Positive Blood Culture. Reported to MD TIMMY
== END 2023-12-18 17:54 | disposition home or self-care (01) ==
PROVIDERS: Emergency Provider Emergency Medicine; PCP Nurse Practitioner Adult Health
DX: R50.9 Fever, unspecified (principal); R41.0 Disorientation, unspecified; I10 Essential (primary) hypertension; B20 Human immunodeficiency virus [HIV] disease
CPT/HCPCS: 123; 36415; 80053; 87040; 87077; 87637; 96374; 99284; 00123; 70450; 71046; 81003; 81015; 83735; 84443; 85025; 85610; 85730; 87186; 99283; J0131

== ENCOUNTER 2023-12-19 15:10 | Emergency (ER) | payer MEDICARE, BC, SELFPAY ==
[2023-12-19] VITALS (46 sets, daily range): BP systolic 107–128; BP diastolic 67–78; PULSE 70–99; RESP 13–25; TEMP 36.6–37.3; O2SAT 92–99
--- NOTE | 2023-12-19 15:22 | W.ED.GENAD ---
Discharge Plan Disposition Patient Disposition: Transfer-Acute Inpatient Care Specific Acute Inpt Facility: [facility] Condition: Stable Discharge Details Chief Complaint: Abd Prob Clinical Impression: Intra-abdominal abscess Primary Care Provider: Disha Light ED Provider: Stanford Parrish Home Meds and New Rx's Prescriptions: No Action acetylcarnitin HCl-a lipoic ac 400-200 mg capsule 1 cap PO DAILY alpha lipoic acid 200 mg capsule 200 mg PO DAILY cholecalciferol (vitamin D3) [Vitamin D3] 125 mcg (5,000 unit) tablet 5,000 unit PO DAILY amino acids Capsule See Rx Instructions PO .COMPLEX Patient Comments: mixed in tea Rx Instructions: 4 Tblsp once a day per Dr. Rossi Lr, [facility] [place] 07/2019 vitamin B complex [B Complex-Vitamin B12] Tablet 1 tab PO DAILY psyllium husk 0.4 gram capsule 0.4 g PO DAILY MDD 0.8mg/24h Qty: 90 3RF Rx Instructions: May hold this medication if stools become too frequent apixaban 5 mg tablet 5 mg PO BID Qty: 180 3RF citalopram 20 mg tablet 20 mg PO DAILY Patient Comments: 10/31/23 pts caregiver Alejandro states pt is taking 20 mg daily. RH (DME) blood-glucose meter Misc See Rx Instructions .MEDSUPPLY Qty: 1 0RF Rx Instructions: As directed to check blood glucose daily. No insulin. Freestyle lite. (DME) FreeStyle Lite Strips Strip 1 ea Miscellaneous DAILY Qty: 100 3RF Rx Instructions: Check daily for E11.9 (DME) lancets [FreeStyle Lancets] 28 gauge misc 1 ea Miscellaneous DAILY Qty: 100 3RF Rx Instructions: Daily as directed for E11.9 (DME) Hair & pierce trim/cut 07/2023 See Rx Instructions .Route .MEDSUPPLY Qty: 1 0RF Rx Instructions: For your hygiene and health epinephrine [EpiPen 2-Kevin] 0.3 mg/0.3 mL auto-injector 0.3 mg IM PRN Qty: 2 1RF Rx Instructions: inject once if stung by bee and call 911 Triumeq 1 EACH tablet 1 ea PO DAILY memantine [Namenda XR] 14 mg capsule,sprinkle,ER 24hr 28 mg PO HS Rx Instructions: NOTE DATED 05/22/20 12/25/20 28 mg donepezil [Aricept] 10 mg tablet 20 mg PO DAILY Rx Instructions: 12/25/20 Increase to 12.5 for 2 weeks, then 15 mg nightly. If loose stools/diarrhea, can reduce back to 10 mg loratadine 10 mg tablet See Rx Instructions .ROUTE .COMPLEX Qty: 90 1RF Dose Instruction: TAKE ONE TABLET BY MOUTH EVERY DAY NEEDED FOR ALLERGIC SYMPTOMS Rx Instructions: TAKE ONE TABLET BY MOUTH EVERY DAY NEEDED FOR ALLERGIC SYMPTOMS metoprolol tartrate 25 mg tablet See Rx Instructions .ROUTE .COMPLEX Qty: 180 3RF Dose Instruction: TAKE ONE TABLET BY MOUTH TWICE A DAY Rx Instructions: TAKE ONE TABLET BY MOUTH TWICE A DAY atorvastatin 40 mg tablet See Rx Instructions .ROUTE .COMPLEX Qty: 90 3RF Dose Instruction: TAKE ONE TABLET BY MOUTH EVERY DAY FOR CHOLESTEROL Rx Instructions: TAKE ONE TABLET BY MOUTH EVERY DAY FOR CHOLESTEROL multivitamin 1 EACH capsule 1 ea PO DAILY Super B Complex + C 150 MG tablet 150 mg PO DAILY HPI General Date/Time Provider Initiated Documentation: 12/19/23 15:12. HPI Narrative: 73-year-old male history of HIV seen here yesterday for rigors, discharged home after negative workup, blood cultures came back positive for gram-positive rods, patient presents primary care physician today and was noted to have right upper quadrant abdominal discomfort. Referred in for further evaluation. Related Data Home Medications Medication Instructions Recorded Confirmed abacavir 600 mg-dolutegravir 50 1 ea PO DAILY 03/02/16 12/19/23 mg-lamivudine 300 mg tablet (Triumeq) multivitamin 1 ea PO DAILY 04/19/16 12/19/23 vitamin B comp with C no.4 150 mg 150 mg PO DAILY 04/19/16 12/19/23 tablet (Super B Complex + C) acetylcarnitine HCl 400 mg-alpha 1 cap PO DAILY 01/28/20 12/19/23 lipoic acid 200 mg capsule alpha lipoic acid 200 mg capsule 200 mg PO DAILY 01/28/20 12/19/23 cholecalciferol (vitamin D3) 125 5,000 unit PO DAILY 01/28/20 12/19/23 mcg (5,000 unit) tablet (Vitamin D3) memantine 14 mg capsule 28 mg PO HS 12/25/20 12/19/23 sprinkle,extended release 24hr (Namenda XR) donepezil 10 mg tablet (Aricept) 20 mg PO DAILY 07/06/21 12/19/23 amino acids See Rx Instructions PO .COMPLEX 07/27/21 12/19/23 blood sugar diagnostic (FreeStyle #100 strips 11/24/22 12/19/23 Lite Strips) blood-glucose meter #1 ea 11/24/22 12/19/23 lancets 28 gauge (FreeStyle #100 ea 11/24/22 12/19/23 Lancets) loratadine 10 mg tablet See Rx Instructions .Route 04/17/23 12/19/23 .COMPLEX #90 tabs psyllium husk 0.4 gram capsule 0.4 g PO DAILY constipation #90 07/13/23 12/19/23 caps vitamin B complex (B 1 tab PO DAILY 07/13/23 12/19/23 Complex-Vitamin B12 tablet) apixaban 5 mg tablet 5 mg PO BID #180 tabs 07/14/23 12/19/23 Hair & pierce trim/cut 07/2023 #1 ea 08/10/23 12/19/23 epinephrine 0.3 mg/0.3 mL 0.3 mg (0.3 mL) IM PRN #2 pens 08/10/23 12/19/23 injection, auto-injector (EpiPen 2-Kevin) metoprolol tartrate 25 mg tablet See Rx Instructions .Route 08/14/23 12/19/23 .COMPLEX #180 tabs atorvastatin 40 mg tablet See Rx Instructions .Route 08/21/23 12/19/23 .COMPLEX #90 tabs citalopram 20 mg tablet 20 mg PO DAILY 10/31/23 12/19/23 Previous Rx's Medication Instructions Recorded blood sugar diagnostic (FreeStyle #100 strips 11/24/22 Lite Strips) blood-glucose meter #1 ea 11/24/22 lancets 28 gauge (FreeStyle #100 ea 11/24/22 Lancets) loratadine 10 mg tablet See Rx Instructions .Route 04/17/23 .COMPLEX #90 tabs psyllium husk 0.4 gram capsule 0.4 g PO DAILY constipation #90 07/13/23 caps apixaban 5 mg tablet 5 mg PO BID #180 tabs 07/14/23 Hair & pierce trim/cut 07/2023 #1 ea 08/10/23 epinephrine 0.3 mg/0.3 mL 0.3 mg (0.3 mL) IM PRN #2 pens 08/10/23 injection, auto-injector (EpiPen 2-Kevin) metoprolol tartrate 25 mg tablet See Rx Instructions .Route 08/14/23 .COMPLEX #180 tabs atorvastatin 40 mg tablet See Rx Instructions .Route 08/21/23 .COMPLEX #90 tabs Allergies Allergy/AdvReac Type Severity Reaction Status Date / Time poison kristin extract Allergy Unknown blisters, Verified 12/19/23 15:21 rash, itching Bee stings Allergy Severe anaphylaxis Uncoded 12/19/23 15:21 General Stated Complaint: Abd Prob CHRIS: 3 Review of Systems Narrative: Review of Systems Constitutional: negative Eyes: negative ENT: negative Cardiovascular: negative Respiratory: negative Gastrointestinal: Abdominal pain : negative Musculoskeletal: negative Skin: negative Neurologic: negative Psych: negative Exam Narrative Exam Narrative: Physical Examination General: alert, awake, cooperative, resting comfortably, no acute distress HEENT: normocephalic, atraumatic; PERRL, EOM intact, conjunctiva normal; no nasal discharge; moist mucous membranes, oral and pharyngeal mucosa normal, tolerating secretions Neck: supple, trachea midline; full ROM Chest: normal to inspection Respiratory: normal respiratory effort, speaking in full sentences, clear to auscultation, no wheezing, rales or rhonchi Cardiac: regular rate, regular rhythm, S1S2 intact, no murmurs rubs or gallops GI: abdomen soft, non-tender, mildly distended abdomen; palpable mass right lateral to midline firm in nature nontender Skin: no lesions, rashes or trauma appreciated Neuro: AAOx3, normal speech, moving all extremities Psych: Appropriate mood and affect Course Vital Signs Vital signs: Vital Signs Temperature 36.6 C 12/19/23 15:15 Pulse 70 12/19/23 15:15 Respiratory Rate 18 12/19/23 15:15 Blood Pressure 128/70 12/19/23 15:15 Pulse Oximetry 96 12/19/23 15:15 Temperature 36.6 C 12/19/23 15:15 Pulse 70 12/19/23 15:15 Respiratory Rate 18 12/19/23 15:15 Blood Pressure 128/70 12/19/23 15:15 Pulse Oximetry 96 12/19/23 15:15 Lab/Test Results Lab/Test Results: 12/19/23 15:13 Blood Blood Culture - Pending 12/19/23 15:13 Blood Blood Culture - Pending Medical Decision Making 73-year-old male history of HIV, presents after blood cultures grew out gram-positive rods, patient does have abdominal discomfort, noted to have firm mass on palpation just right of midline, afebrile nontoxic normotensive nontachycardic not hypoxic. Workup yesterday negative for any pulmonary or urinary source, consider abdominal hernia with incarceration versus abdominal mass versus colitis versus enteritis versus diverticulitis versus cholecystitis lower suspicion for pancreatitis. Will obtain basic labs repeat blood cultures as there is a chance this could be contaminant, CT abdomen pelvis 15: 44 despite nontoxic appearance and normal vital signs patient is high risk given age and HIV status, in the setting of positive blood cultures and leukocytosis empirically covered with broad-spectrum antibiotics vancomycin and piperacillin tazobactam. Pending CT scan for disposition. 18: 10 evidence of large 6 x 6 cm abscess right lower quadrant concerning for ruptured appendicitis versus ruptured neoplasm versus ruptured diverticula, patient remains hemodynamically stable nonperitoneal discussed case with general surgery here who agrees the patient will likely need IR drain to allow area to cool down before surgical intervention. Broad-spectrum antibiotics have been initiated on arrival. Placed a call to [facility] to discuss case with interventional radiology. 19: 14 [facility] interventional radiology will not have availability until possibly tomorrow to intervene. Although patient is hemodynamically stable resting comfortably, he does have high risk of deterioration given HIV status and age will call surrounding facilities to see if more urgent/emergent availability of IR team is available. Have initiated discussion with [facility]. 20: 15 discussed case with [facility] acute care surgery who is excepted patient for ED to ED transfer. In the interim patient examination has changed she has become more rigid and tender, requiring IV analgesia. Antibiotics have completed. Patient remains hemodynamically stable. Quality:SDOH Health Related Social Needs: No Data to Display PFSH All Active Problems (Updated 12/19/23 @ 20:17 by Stanford Parrish MD) Intra-abdominal abscess (Acute) RUQ abdominal tenderness (Acute) Abdominal bloating (Acute) Abdominal pain (Acute) Rigors (Acute) Fever (Acute) Confusion (Acute) Prolonged QT interval (Acute ~06/2023) Atrial fibrillation by electrocardiogram (Acute ~06/2023) Cataracts, bilateral (Acute) Macrocytosis without anemia (Acute ~07/2021) Type 2 diabetes mellitus without complication (Chronic ~2020) 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) Depression (Chronic 03/27/15) Pure hypercholesterolemia (Chronic 04/13/15) Memory loss (Chronic 03/27/15) [facility] Neuro; MRI 04-22-15: cerebral atrophy & white matter changes; atrophy greater than expected for age Irritable bowel syndrome with diarrhea (Acute 04/13/15) HIV (human immunodeficiency virus infection) (Acute 03/27/05) HAART w/ undetectable viral load Medical History COVID Snoring 12/21/21 [facility] Sleep - Polysomography recommended and f/u 02/19/22; normal sleep study 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 Grandmother Diabetes Grandmother Diabetes Social History Smoking/Tobacco Use Status: Never Smoking risk assessment performed?: Yes Alcohol Intake: current Alcohol Intake frequency: a few times a month Drug use: Never Substance use type: does not use Household members: significant other Housing: house Number of Children: 0 Communication Needs: Corrective Lenses Education Level: other Current gender identity: male What is your relationship status?: living with partner How often do you talk on the phone with friends or family?: three or more times per week Panel score (0-1 are the most socially isolated patients): 2 What type of physical activity do you participate in: none Seatbelt use: always Drive intox or ride 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
[2023-12-19 15:38] LABS: Abs Immature Grans 0.19 10^3/uL (0.0-0.06); Absolute Monocyte Count 0.95 10^3/uL (0.1-0.8); Basophils % 0.2; Eosinophils % 0.1; HCT 38.9 % (40.0-50.0); HGB 13.3 g/dL (13.5-17.5); Immature Grans % 0.9; Lymphocytes % 6.7; MCH 33.4 pg (27.0-33.0); MCHC 34.2 % (32.0-36.0); MCV 98 fL (80-95); MPV 8.7 fL (8.0-11.0); Monocytes % 4.6; Neutrophils % 87.5; Platelet Count 252 10^3/uL (130-400); RBC 3.98 10^6/uL (4.36-5.78); RDW 12.9 % (11.8-14.1); RDW-SD 46.3 fL; WBC 20.66 10^3/uL (4.4-10.8)
[2023-12-19 15:39] LABS: Absolute Basophil Count 0.04 10^3/uL (0.0-0.2); Absolute Eosinophil Count 0.02 10^3/uL (0.0-0.7); Absolute Lymphocyte Count 1.38 10^3/uL (1.2-3.4); Absolute Neutrophil Count 18.08 10^3/uL (1.2-6.7)
[2023-12-19 15:59] LABS: ALT 95 U/L (16-63); AST 48 U/L (15-37); Alkaline Phosphatase 101 U/L (46-116); Anion Gap 9.6 mmol/L (3-11); BUN 15 mg/dL (7-18); Bilirubin, Total 0.5 mg/dL (0.2-1.0); CO2 29.4 mmol/L (21.0-32.0); CREATININE 1.4 mg/dL (0.70-1.30); Calcium 8.8 mg/dL (8.5-10.1); Chloride 95 mmol/L (98-107); Estimated GFR 52.41 (mL/min/1.73m2); Glucose 275 mg/dL (74-106); Lipase 25 U/L (16-77); Sodium 134 mmol/L (136-145); Total Protein 7.2 g/dL (6.4-8.2)
[2023-12-19] MEDS: PIPERACILLIN/TAZO 4.5 GM in Normal Saline 100 ML IVPB (16:00)
[2023-12-19 16:02] LABS: Potassium 2.8 mmol/L (3.5-5.1)
[2023-12-19] MEDS: Omnipaque 350 MG/ML 100 ML BTL IJ (16:24)
[2023-12-19] MEDS: Normal Saline - Diluent 50 ML VIAL IJ (16:27)
--- NOTE | 2023-12-19 16:28 | DI.CT_ITS ---
Exam(s) CT ABDOMEN PELVIS W EXAM: CT ABDOMEN PELVIS W CLINICAL HISTORY: RUQ pain, positive blood cultures, HIV+. TECHNIQUE: Imaging Protocol: Axial computed tomography images with coronal and sagittal reformatted images were created and reviewed CONTRAST MATERIAL: Intravenous: Omnipaque-350 100cc Oral: None COMPARISON: No exams were available for comparison FINDINGS: VISUALIZED LUNG BASES: No nodules nor pleural effusions evident. ABDOMEN: There is no ascites. LIVER: There are no focal hepatic lesions evident. No dilated intrahepatic ducts. GALLBLADDER/BILIARY: No obvious gallbladder pathology. CBD is not dilated. PANCREAS: No evidence of pancreatic mass nor dilatation of the pancreatic duct. SPLEEN: Spleen is not enlarged. No obvious intrasplenic lesions. Splenic and portal veins are paten t. ADRENALS: There are no significant adrenal masses. KIDNEYS:No cysts evident. No solid renal masses. No calculi nor hydronephrosis.. ABDOMINAL AORTA: Abdominal aorta is not enlarged. LYMPH NODES:There is no retroperitoneal nor paraaortic adenopathy. ABDOMINAL WALL: No evidence of significant anterior abdominal wall nor inguinal hernia. GI: There is a prominent inflammatory process having the appearance of an abscess in the right-side o f the abdomen just below the ileocecal valve. It is difficult to determine if this is the actual cec um or an abscess. The appendix cannot be identified as a separate structure. The adjacent terminal ileum is edematous which is most probably reactive. There is no gas in the portal venous system. PELVIS: GI: There is diverticulosis of the sigmoid but no sigmoid diverticulitis. LYMPH NODES: There is no intrapelvic nor inguinal adenopathy. REPRODUCTIVE: Prostate size upper normal. Seminal vesicles unremarkable. URINARY BLADDER: Uniform mild thickening of the urinary bladder wall noted. OSSEOUS: No fractures and no significant osseous lesions. IMPRESSION: 1. There is a large inflammatory process consistent with abscess in the right-side of the abdomen in the region of the cecum adjacent ileocecal valve, this measuring approximately 6 x 6 cm. The appendi x cannot be identified as a separate structure and these findings may be related to ruptured appendix with abscess formation. Other possibly would be for perforated diverticulitis or perforated neoplas m in this region. 2. No evidence of air-gas in the portal venous system. No abscess in the liver. 3. Extensive sigmoid diverticulosis but no evidence of acute sigmoid diverticulitis. 4. Relatively uniform thickening of the urinary bladder wall probably related to chronic cystitis. T he prostate is not enlarged. Called by myself to ER provider to 05/11/2024 5:10 p.m. RADIATION DOSE DELIVERED: 1,053.27mGy.cm Total DLP DATA REPOSITORY: All CT scans at this facility are submitted to the National Radiology Data Registry (NRDR) Dose Index Registry (DIR) with the [employer] ([employer]). RADIATION OPTIMIZATION: All CT scans at this facility use at least one of these dose optimization te chniques: automated exposure control; mA and/or kV adjustment per patient size (includes targeted exa ms where dose is matched to clinical indication); or iterative reconstruction.
[2023-12-19] MEDS: POTASSIUM CHLORIDE 10 MEQ/100 ML BAG 100 MEQ IVPB (17:24)
[2023-12-19] MEDS: VANCOMYCIN/WATER (PEG) 1.5 GM/300 ML BAG IVPB (17:39)
[2023-12-19] MEDS: MORPHine 4 MG/ML SYR 2 MG IVP (18:13)
[2023-12-19] MEDS: MORPHine 10 MG/ML VIAL 2 MG IVP (19:38)
--- NOTE | 2023-12-19 20:23 | NUR.NOTE ---
Report called to RIAZ TAPIA RN now, pt left with [facility] now Nursing Note:
== END 2023-12-19 20:24 | disposition short-term general hospital (02) ==
PROVIDERS: Emergency Provider Emergency Medicine; PCP Nurse Practitioner Adult Health
DX: K65.1 Peritoneal abscess (principal); B20 Human immunodeficiency virus [HIV] disease; E11.9 Type 2 diabetes mellitus without complications; E78.00 Pure hypercholesterolemia, unspecified; Z79.01 Long term (current) use of anticoagulants; Z79.899 Other long term (current) drug therapy
CPT/HCPCS: 80053; 83690; 87040; 96365; 96367; 96375; 96376; 99285; 74177; 85025; J2270; J2543; J3372; J3480; J3490

== ENCOUNTER 2023-12-29 01:07 | Outpatient (RCR) | payer MEDICARE, BC, SELFPAY ==
[2023-12-29] MEDS: cefTRIAXone 1 GM/50 ML BAG IVPB (12:55)
[2023-12-29] MEDS: Normal Saline Flush 10 ML SYR IVP (13:45)
== END 2024-01-21 23:59 | disposition home or self-care (01) ==
LOC: INF 01:07
PROVIDERS: PCP Nurse Practitioner Adult Health; Visit Provider Family Medicine
DX: A40.9 Streptococcal sepsis, unspecified; B20 Human immunodeficiency virus [HIV] disease; Z79.899 Other long term (current) drug therapy; K35.32 Acute appendicitis with perforation, localized peritonitis, and gangrene, without abscess
CPT/HCPCS: 96365; J0696

== ENCOUNTER 2024-01-02 03:53 | Outpatient (RCR) | payer MEDICARE, BC, SELFPAY ==
[2023-12-30] MEDS: cefTRIAXone 1 GM/50 ML BAG IVPB (13:00)
[2023-12-30] MEDS: Normal Saline Flush 10 ML SYR IVP (13:19)
[2023-12-31] MEDS: Normal Saline Flush 10 ML SYR IVP (12:40)
[2023-12-31] MEDS: cefTRIAXone 1 GM/50 ML BAG IVPB (12:40)
[2024-01-01] MEDS: cefTRIAXone 1 GM/50 ML BAG IVPB (12:37)
[2024-01-01] MEDS: Normal Saline Flush 10 ML SYR IVP (12:48)
[2024-01-02] MEDS: cefTRIAXone 1 GM/50 ML BAG IVPB (12:16)
[2024-01-02] MEDS: Normal Saline Flush 10 ML SYR IVP (12:20)
[2024-01-02 12:58] LABS: Absolute Basophil Count 0.04 10^3/uL (0.0-0.2); Absolute Eosinophil Count 0.06 10^3/uL (0.0-0.7); Absolute Monocyte Count 0.75 10^3/uL (0.1-0.8); Absolute Neutrophil Count 10.13 10^3/uL (1.2-6.7); Basophils % 0.3; Eosinophils % 0.5; HCT 37.3 % (40.0-50.0); HGB 12.3 g/dL (13.5-17.5); Immature Grans % 0.8; Lymphocytes % 11.2; MCH 33.1 pg (27.0-33.0); MCV 100 fL (80-95); MPV 8.5 fL (8.0-11.0); Neutrophils % 81.2; Platelet Count 553 10^3/uL (130-400); RBC 3.72 10^6/uL (4.36-5.78); RDW 14.3 % (11.8-14.1); RDW-SD 51.6 fL; WBC 12.47 10^3/uL (4.4-10.8)
[2024-01-02 13:05] LABS: CREATININE 1.1 mg/dL (0.70-1.30); Estimated GFR 70.01 (mL/min/1.73m2)
[2024-01-02 16:46] LABS: Lab Add On Test DONE
[2024-01-02 17:03] LABS: ALT 21 U/L (16-63); AST 22 U/L (15-37); Albumin 2.4 g/dL (3.4-5.0); Alkaline Phosphatase 68 U/L (46-116); Anion Gap 8.3 mmol/L (3-11); BUN 13 mg/dL (7-18); Bilirubin, Total 0.4 mg/dL (0.2-1.0); CO2 27.7 mmol/L (21.0-32.0); CREATININE 1.1 mg/dL (0.70-1.30); Calcium 8.8 mg/dL (8.5-10.1); Chloride 105 mmol/L (98-107); Estimated GFR 70.01 (mL/min/1.73m2); Glucose 253 mg/dL (74-106); Potassium 4.5 mmol/L (3.5-5.1); Sodium 141 mmol/L (136-145); Total Protein 6.3 g/dL (6.4-8.2)
[2024-01-02 18:33] LABS: Lab Add On Test DONE
[2024-01-02 18:55] LABS: C-Reactive Protein 0.91 mg/dL (<or=0.5)
[2024-01-02 19:11] LABS: Procalcitonin < 0.1 ng/mL
== END 2024-01-21 23:59 | disposition home or self-care (01) ==
LOC: INF 03:53
PROVIDERS: Student in an Organized Health Care Education/Training Program; PCP Nurse Practitioner Adult Health; Visit Provider Family Medicine
DX: K35.80 Unspecified acute appendicitis (principal); A40.9 Streptococcal sepsis, unspecified
CPT/HCPCS: 36415; 80053; 84145; 96365; 82565; 85025; 86140; J0696

== ENCOUNTER 2024-01-02 18:39 | Emergency (ER) | payer MEDICARE, BC, SELFPAY ==
[2024-01-02] VITALS (25 sets, daily range): BP systolic 100–199; BP diastolic 66–100; PULSE 69–103; RESP 11–22; TEMP 36.3; O2SAT 95–99
--- NOTE | 2024-01-02 19:00 | DI.CT_ITS ---
Exam(s) CT ABDOMEN PELVIS W EXAM: CT ABDOMEN PELVIS W CLINICAL HISTORY: continued ABD pain, s/p appy 12 days ago TECHNIQUE: Imaging Protocol: Axial computed tomography images with coronal and sagittal reformatted images were created and reviewed. CONTRAST MATERIAL: Intravenous: Omnipaque 350 Contrast volume:100 mL Oral: No COMPARISON: CT CT ABDOMEN PELVIS W from 12/19/2023 FINDINGS: ABDOMEN: Lung Bases: Coronary artery calcifications are present. There are small bilateral pleural effusions and subjacent infiltrates present. Liver: Normal density. No measurable mass. Portal, Superior Mesenteric, and Splenic Veins: Unremarkable. Gallbladder and Biliary Tract: No radiodense calculus or dilation. Pancreas: Normal density, no abnormal calcifications or inflammatory process. Spleen: Normal. Adrenals: No masses seen. Kidneys: Normal size, contour and axis. No radiodense stones or obstructive uropathy. No masses seen. Abdominal Aorta: Abdominal portion non-dilated. Mild atherosclerotic calcification is present. Bowel: There is diverticulosis of the colon but no evidence of acute diverticulitis. The patient is status post appendectomy. The stomach is incompletely distended limiting evaluation. There is no ev idence of pneumatosis. There is no evidence of bowel obstruction. There is a catheter seen in the r ight lower quadrant within the previously seen abscess. There has been interval decrease in size of the abscess which does persist it measures 3.9 x 1.9 x 6.7 cm. Peritoneal Cavity: No ascites. No free air. Lymph Nodes: Within normal limits. Bones: Within normal limits for the patient's age. Soft Tissues: There is a midline anterior abdominal wall scar. There is a right lower quadrant drain age catheter in place. PELVIS: Bladder: There is mild diffuse thickening of the wall of the urinary bladder. Reproductive Organs: Unremarkable as visualized. Lymph Nodes: Within normal limits. Bones: Within normal limits for the patient's age. IMPRESSION: 1. Interval decrease in size of the right lower quadrant abscess which does contain a drainage cathet er. 2. Mild diffuse thickening of the wall of the urinary bladder. This may be due to underdistention. Cystitis can not be excluded. 3. Small bilateral pleural effusions and subjacent infiltrates which may represent atelectasis or pne umonia. RADIATION DOSE DELIVERED: Total DLP DATA REPOSITORY: All CT scans at this facility are submitted to the National Radiology Data Registry (NRDR) Dose Index Registry (DIR) with the [employer] (ACR). RADIATION OPTIMIZATION: All CT scans at this facility use at least one of these dose optimization te chniques: automated exposure control; mA and/or kV adjustment per patient size (includes targeted exa ms where dose is matched to clinical indication); or iterative reconstruction.
[2024-01-02 19:26] LABS: Absolute Basophil Count 0.04 10^3/uL (0.0-0.2); Absolute Eosinophil Count 0.06 10^3/uL (0.0-0.7); Absolute Monocyte Count 0.84 10^3/uL (0.1-0.8); Absolute Neutrophil Count 8.03 10^3/uL (1.2-6.7); Basophils % 0.4; Eosinophils % 0.6; HCT 34.8 % (40.0-50.0); HGB 11.5 g/dL (13.5-17.5); Immature Grans % 0.9; MCH 33.2 pg (27.0-33.0); MCV 101 fL (80-95); MPV 8.3 fL (8.0-11.0); Monocytes % 7.9; Neutrophils % 75.2; Platelet Count 488 10^3/uL (130-400); RBC 3.46 10^6/uL (4.36-5.78); RDW 14.4 % (11.8-14.1); RDW-SD 52.2 fL; WBC 10.67 10^3/uL (4.4-10.8)
[2024-01-02] MEDS: Omnipaque 350 MG/ML 100 ML BTL IJ (19:40)
[2024-01-02] MEDS: Normal Saline - Diluent 50 ML VIAL IJ (19:41)
[2024-01-02 19:49] LABS: ALT 21 U/L (16-63); AST 19 U/L (15-37); Albumin 2.4 g/dL (3.4-5.0); Alkaline Phosphatase 67 U/L (46-116); Anion Gap 8.3 mmol/L (3-11); BUN 15 mg/dL (7-18); Bilirubin, Total 0.3 mg/dL (0.2-1.0); C-Reactive Protein 0.88 mg/dL (<or=0.5); CO2 26.7 mmol/L (21.0-32.0); Calcium 8.8 mg/dL (8.5-10.1); Chloride 104 mmol/L (98-107); Estimated GFR 78.49 (mL/min/1.73m2); Glucose 132 mg/dL (74-106); Lipase 25 U/L (16-77); NT-proBNP 2868 pg/mL (<300); Potassium 4.3 mmol/L (3.5-5.1); Sodium 139 mmol/L (136-145); Total Protein 6.3 g/dL (6.4-8.2)
--- NOTE | 2024-01-02 20:15 | DI.RAD_ITS ---
Exam(s) XR PORTABLE CHEST AP EXAM: XR PORTABLE CHEST AP CLINICAL HISTORY: fatigue, post-op, elevated BNP TECHNIQUE: 2D digital imaging was performed of the chest. One image was obtained. An AP view was ob tained. COMPARISON: CR XR PORTABLE CHEST AP from 03/14/2022 CR XR CHEST 2V PA LATERAL from 12/18/2023 FINDINGS: MEDIASTINUM: Normal. HEART: Normal. PULMONARY VASCULATURE: Normal. LUNGS: Clear. PLEURAL SPACE: There is minor blunting of the left costophrenic angle which is new. This may represe nt a tiny pleural effusion. No right pleural effusion or pneumothorax. BONE:Within normal limits for the patient's age. OTHER FINDINGS:Normal. IMPRESSION: 1. No focal infiltrates. 2. Question of a tiny left pleural effusion. DATA REPOSITORY: RADIATION DOSE DELIVERED:
--- NOTE | 2024-01-02 20:23 | DI.VRAD_ITS ---
PROCEDURE INFORMATION: Exam: CT Abdomen And Pelvis With Contrast Exam date and time: 01/02/2024 7:42 PM Age: 73 years old Clinical indication: Other: Continued abd pain, S/P appy 12 days ago; Prior surgery; Surgery date: <1 month TECHNIQUE: Imaging protocol: Computed tomography of the abdomen and pelvis with contrast. Contrast material: OMNIPAQUE 350; Contrast volume: 100 ml; Contrast route: INTRAVENOUS (IV); COMPARISON: CT ABDOMEN PELVIS W 12/19/2023 4:23 PM FINDINGS: Tubes, catheters and devices: Right ventral abdominal approach percutaneous drainage catheter within the right lower quadrant loculated fluid collection, measuring approximately 3.2 x 2.2 cm (series 4, image 46). Pleural spaces: Small bilateral pleural effusions, with associated atelectasis. Coronary arteries: Atherosclerotic disease of the visualized right coronary artery. Atherosclerotic disease of the visualized right coronary artery. Liver: Normal. Gallbladder and bile ducts: Normal. Pancreas: Normal. Spleen: Normal. Adrenal glands: Mild bilateral adrenal hyperplasia. Kidneys and ureters: Normal. Stomach and bowel: Colonic diverticulosis. Appendix: Appendix is surgically absent. Intraperitoneal space: Unremarkable. No free air. No significant fluid collection. Vasculature: Atherosclerotic disease of the abdominal aorta and iliac arteries. Lymph nodes: Unremarkable. No enlarged lymph nodes. Urinary bladder: Mild urinary bladder wall thickening, with minimal adjacent fat stranding, possibly cystitis. Reproductive: Unremarkable as visualized. Extraperitoneal space: Small amount of presacral free fluid. Bones/joints: No acute abnormality. Soft tissues: Surgical changes of midline ventral laparotomy. IMPRESSION: 1. Right ventral abdominal approach percutaneous drainage catheter within the right lower quadrant loculated fluid collection, measuring approximately 3.2 x 2.2 cm (series 4, image 46). 2. Small bilateral pleural effusions, with associated atelectasis. 3. Other (less critical/noncritical/incidental) findings as above; please refer to the body of report for further details. Dictated and Authenticated by: Romie Ramos MD. Ordering:SOWMYA Stovall MD
--- NOTE | 2024-01-02 20:45 | ED.GENADUL_ITS ---
Discharge Plan Disposition Patient Disposition: Home Condition: Stable Discharge Details Clinical Impression: Pedal edema Primary Care Provider: Disha Light ED Provider: Wilman Casey Home Meds and New Rx's Prescriptions: Continued acetylcarnitin HCl-a lipoic ac 400-200 mg capsule 1 cap PO DAILY alpha lipoic acid 200 mg capsule 200 mg PO DAILY cholecalciferol (vitamin D3) [Vitamin D3] 125 mcg (5,000 unit) tablet 5,000 unit PO DAILY amino acids Capsule See Rx Instructions PO .COMPLEX Patient Comments: mixed in tea Rx Instructions: 4 Tblsp once a day [place]. Rossi Lr[place] [facility] [place] vitamin B complex [B Complex-Vitamin B12] Tablet 1 tab PO DAILY psyllium husk 0.4 gram capsule 0.4 g PO DAILY MDD 0.8mg/24h Qty: 90 3RF Rx Instructions: May hold this medication if stools become too frequent apixaban 5 mg tablet 5 mg PO BID Qty: 180 3RF citalopram 20 mg tablet 20 mg PO DAILY Patient Comments: 10/31/23 pts caregiver Alejandro states pt is taking 20 mg daily. RH (DME) blood-glucose meter Misc See Rx Instructions .MEDSUPPLY Qty: 1 0RF Rx Instructions: As directed to check blood glucose daily. No insulin. Freestyle lite. (DME) FreeStyle Lite Strips Strip 1 ea Miscellaneous DAILY Qty: 100 3RF Rx Instructions: Check daily for E11.9 (DME) lancets [FreeStyle Lancets] 28 gauge misc 1 ea Miscellaneous DAILY Qty: 100 3RF Rx Instructions: Daily as directed for E11.9 (DME) Hair & pierce trim/cut 07/2023 See Rx Instructions .Route .MEDSUPPLY Qty: 1 0RF Rx Instructions: For your hygiene and health epinephrine [EpiPen 2-Kevin] 0.3 mg/0.3 mL auto-injector 0.3 mg IM PRN Qty: 2 1RF Rx Instructions: inject once if stung by bee and call 911 Triumeq 1 EACH tablet 1 ea PO DAILY memantine [Namenda XR] 14 mg capsule,sprinkle,ER 24hr 28 mg PO HS Rx Instructions: NOTE DATED 05/22/20 12/25/20 28 mg donepezil [Aricept] 10 mg tablet 20 mg PO DAILY Rx Instructions: 12/25/20 Increase to 12.5 for 2 weeks, then 15 mg nightly. If loose stools/diarrhea, can reduce back to 10 mg loratadine 10 mg tablet See Rx Instructions .ROUTE .COMPLEX Qty: 90 1RF Dose Instruction: TAKE ONE TABLET BY MOUTH EVERY DAY NEEDED FOR ALLERGIC SYMPTOMS Rx Instructions: TAKE ONE TABLET BY MOUTH EVERY DAY NEEDED FOR ALLERGIC SYMPTOMS metoprolol tartrate 25 mg tablet See Rx Instructions .ROUTE .COMPLEX Qty: 180 3RF Dose Instruction: TAKE ONE TABLET BY MOUTH TWICE A DAY Rx Instructions: TAKE ONE TABLET BY MOUTH TWICE A DAY atorvastatin 40 mg tablet See Rx Instructions .ROUTE .COMPLEX Qty: 90 3RF Dose Instruction: TAKE ONE TABLET BY MOUTH EVERY DAY FOR CHOLESTEROL Rx Instructions: TAKE ONE TABLET BY MOUTH EVERY DAY FOR CHOLESTEROL acetaminophen 500 mg tablet 1,000 mg PO Q6H PRN cefpodoxime 200 mg tablet 200 mg PO BID Rx Instructions: Take for 14 days starting on 01/03/2024 docusate sodium 100 mg capsule 100 mg PO BID metronidazole 250 mg tablet 500 mg PO TID Rx Instructions: Take for 20 days Daily Multivitamin with Iron 18-400 mg-mcg tablet 1 tab PO DAILY oxycodone 5 mg tablet 5 mg PO Q4H PRN Rx Instructions: Take one to two tablets polyethylene glycol 3350 [Miralax] 17 gram powder in packet 17 g PO DAILY PRN (Reason: constipation) sitagliptin 100 mg tablet 100 mg PO DAILY thiamine HCl (vitamin B1) 100 mg tablet 100 mg PO DAILY vitamin E 670 mg (1,000 unit) capsule 670 mg PO BID ginkgo biloba 40 mg tablet 40 mg PO DAILY Rx Instructions: give with meal/snack multivitamin 1 EACH capsule 1 ea PO DAILY Super B Complex + C 150 MG tablet 150 mg PO DAILY Discharge Instructions Instructions: Heart Failure (ED), Edema (ED), Transthoracic Echocardiogram (DC) Additional Instructions: You were seen in the emergency department for your generalized fatigue status post operative, you are on antibiotics and I suggest to continue these, there is no pneumonia on your chest x-ray, your white count has resolved and lactate is negative I do not believe that sepsis is at play here. The CT scan showed the percutaneous drain is in place, and no other acute findings- shows very small pleural effusions at bases of lungs with unknown chronicity, - vitals and oxygen stable here. Likely you are having buildup of edema possibly due to the stress from surgery on your heart in the setting of chronic A-fib, the way to diagnose any congestive heart failure which can be a cause of pedal edema is by echocardiogram which I have placed an order, please call the diagnostic imaging department tomorrow on the sheet of paper provided for you to schedule an outpatient echocardiogram. We are sending you home with 3 tablets of 20 mg of furosemide or Lasix, this medicine will make him urinate and hopefully improve the minor edema of his legs. If he has any shortness of breath, chest pain, developing fever, productive cough or worsening edema despite treatment please return to the ER at once. Please make sure to encourage hydration by drinking sports drinks like Gatorade as well as water throughout the day. Referrals: [facility] [Provider Group] Disha Light NP [Primary Care Provider] - Discharge Data Discharge Date/Time-TO BE ENTERED AT DEPARTURE: 01/02/24 22:23 HPI General Date/Time Provider Initiated Documentation: 01/02/24 18:41 . HPI Narrative: 73 year-old male presents to ED today by POV/ambulating with a chief complaint of sent by PCP office, s/p ruptured appendicitis surgery at [facility] 12 days ago- just received IV antibiotics at PCP office, initiating PO antibiotics tomorrow per [facility] providers. Has been feeling more fatigued lately with onset the past couple days. Quality described as generalized fatigue, no radiation to shortness of breath, cough, fever, vomiting, bowel/urinary changes, patients family are trying to encourage hydration - they do endorse he had significant swelling to legs today, pitting- has chronic atrial fibrillation without diagnosis of CHF. Severity is described as moderate. Palliating factors include nothing specific. Provoking factors include nothing specific. Patient is anticoagulated on apixaban. Related Data Home Medications Medication Instructions Recorded Confirmed abacavir 600 mg-dolutegravir 50 1 ea PO DAILY 03/02/16 01/02/24 mg-lamivudine 300 mg tablet (Triumeq) multivitamin 1 ea PO DAILY 04/19/16 01/02/24 vitamin B comp with C no.4 150 mg 150 mg PO DAILY 04/19/16 01/02/24 tablet (Super B Complex + C) acetylcarnitine HCl 400 mg-alpha 1 cap PO DAILY 01/28/20 01/02/24 lipoic acid 200 mg capsule alpha lipoic acid 200 mg capsule 200 mg PO DAILY 01/28/20 01/02/24 cholecalciferol (vitamin D3) 125 5,000 unit PO DAILY 01/28/20 01/02/24 mcg (5,000 unit) tablet (Vitamin D3) memantine 14 mg capsule 28 mg PO HS 12/25/20 01/02/24 sprinkle,extended release 24hr (Namenda XR) donepezil 10 mg tablet (Aricept) 20 mg PO DAILY 07/06/21 01/02/24 amino acids See Rx Instructions PO .COMPLEX 07/27/21 01/02/24 blood sugar diagnostic (FreeStyle #100 strips 11/24/22 01/02/24 Lite Strips) blood-glucose meter #1 ea 11/24/22 01/02/24 lancets 28 gauge (FreeStyle #100 ea 11/24/22 01/02/24 Lancets) loratadine 10 mg tablet See Rx Instructions .Route 04/17/23 01/02/24 .COMPLEX #90 tabs psyllium husk 0.4 gram capsule 0.4 g PO DAILY constipation #90 07/13/23 01/02/24 caps vitamin B complex (B 1 tab PO DAILY 07/13/23 01/02/24 Complex-Vitamin B12 tablet) apixaban 5 mg tablet 5 mg PO BID #180 tabs 07/14/23 01/02/24 Hair & pierce trim/cut 07/2023 #1 ea 08/10/23 01/02/24 epinephrine 0.3 mg/0.3 mL 0.3 mg (0.3 mL) IM PRN #2 pens 08/10/23 01/02/24 injection, auto-injector (EpiPen 2-Kevin) metoprolol tartrate 25 mg tablet See Rx Instructions .Route 08/14/23 01/02/24 .COMPLEX #180 tabs atorvastatin 40 mg tablet See Rx Instructions .Route 08/21/23 01/02/24 .COMPLEX #90 tabs citalopram 20 mg tablet 20 mg PO DAILY 10/31/23 01/02/24 acetaminophen 500 mg tablet 1,000 mg PO Q6H PRN 12/29/23 01/02/24 cefpodoxime 200 mg tablet 200 mg PO BID 12/29/23 01/02/24 docusate sodium 100 mg capsule 100 mg PO BID 12/29/23 01/02/24 ginkgo biloba 40 mg tablet 40 mg PO DAILY 12/29/23 01/02/24 metronidazole 250 mg tablet 500 mg PO TID 12/29/23 01/02/24 multivitamin-ferrous 1 tab PO DAILY 12/29/23 01/02/24 fumarate-folic acid 18 mg-400 mcg tablet (Daily Multivitamin with Iron) oxycodone 5 mg tablet 5 mg PO Q4H PRN 12/29/23 01/02/24 polyethylene glycol 3350 17 gram 17 g PO DAILY PRN constipation 12/29/23 01/02/24 oral powder packet (Miralax) sitagliptin 100 mg tablet 100 mg PO DAILY 12/29/23 01/02/24 thiamine HCl (vitamin B1) 100 mg 100 mg PO DAILY 12/29/23 01/02/24 tablet vitamin E 670 mg (1,000 unit) 670 mg PO BID 12/29/23 01/02/24 capsule Previous Rx's Medication Instructions Recorded blood sugar diagnostic (FreeStyle #100 strips 11/24/22 Lite Strips) blood-glucose meter #1 ea 11/24/22 lancets 28 gauge (FreeStyle #100 ea 11/24/22 Lancets) loratadine 10 mg tablet See Rx Instructions .Route 04/17/23 .COMPLEX #90 tabs psyllium husk 0.4 gram capsule 0.4 g PO DAILY constipation #90 07/13/23 caps apixaban 5 mg tablet 5 mg PO BID #180 tabs 07/14/23 Hair & pierce trim/cut 07/2023 #1 ea 08/10/23 epinephrine 0.3 mg/0.3 mL 0.3 mg (0.3 mL) IM PRN #2 pens 08/10/23 injection, auto-injector (EpiPen 2-Kevin) metoprolol tartrate 25 mg tablet See Rx Instructions .Route 08/14/23 .COMPLEX #180 tabs atorvastatin 40 mg tablet See Rx Instructions .Route 08/21/23 .COMPLEX #90 tabs Allergies Allergy/AdvReac Type Severity Reaction Status Date / Time poison kristin extract Allergy Unknown blisters, Verified 01/02/24 18:48 rash, itching Bee stings Allergy Severe anaphylaxis Uncoded 01/02/24 18:48 General Stated Complaint: Abd Prob CHRIS: 3 Review of Systems All systems reviewed & are unremarkable except as noted in HPI and below Exam Narrative Exam Narrative: GENERAL APPEARANCE: Well-nourished, non-toxic, awake and alert, atraumatic, no acute distress. SKIN: Warm, pink, dry, intact, without rashes/lesions/ulcerations. HEAD: Normocephalic, atraumatic, normal hair distribution for gender/age. EYES: Pupils PERRLA, EOMs intact without nystagmus, normal conjunctiva, no exudates on lids/lashes. ENT: Nares patent, no circumoral cyanosis, no facial swelling, oral mucosa moist NECK: Supple, trachea midline, painless cervical ROM. LUNGS/CHEST: Lungs CTA bilaterally- no rhonchi/rales/wheezes diffusely, non- labored respirations, normal A/P diameter, symmetrical expansion, no chest wall deformity HEART (CV/PV): Irregular rate and rhythm without murmur, 2+ peripheral edema in legs without skin changes, no JVD. ABDOMEN: Soft, non-distended, no guarding, diffuse abdominal tenderness with percutaneous drain in place. MSK: Normal ROM, no swelling/deformity to bilateral UEs or LEs, moving all extremities without weakness, no cyanosis, spine midline without tenderness, normal curvature, Chantal's negative, no skin changes of DVT, no unilateral leg swelling, no medial thigh tenderness NEURO: Mental Status AAOx4 - alert to person, place, time, events No facial droop, no forehead involvement. Motor: No focal weakness - strength 5/5 in bilateral UEs and LEs, proximal and distal, symmetric. Sensory: sensation intact to light touch globally. Gait normal: patient ambulated without ataxia into ED room. PSYCH: euthymic, cooperative, pleasant, appropriate speech Course Vital Signs Vital signs: Vital Signs Temperature 36.3 C L 01/02/24 18:41 Pulse 88 01/02/24 18:41 Respiratory Rate 16 01/02/24 18:41 Blood Pressure 199/89 H 01/02/24 18:41 Pulse Oximetry 99 01/02/24 18:41 Temperature 36.3 C L 01/02/24 18:41 Temperature Source Temporal Artery Scan 01/02/24 18:41 Pulse 69 03/12/24 19:31 Pulse 85 01/02/24 19:31 Respiratory Rate 13 01/02/24 19:31 Respiratory Effort Normal, Non-Labored 01/02/24 19:25 Blood Pressure 108/66 01/02/24 19:31 Blood Pressure Mean 79 01/02/24 19:31 Pulse Oximetry 95 01/02/24 19:31 Oxygen Delivery Method Room Air 01/02/24 18:41 Oxygen Flow Rate 0 01/02/24 18:41 Pain Level 4 01/02/24 18:41 Lab/Test Results Lab/Test Results: Laboratory Tests Range/Units 01/02/24 19:10 WBC (4.4-10.8) 10^3/uL 10.67 RBC (4.36-5.78) 10^6/uL 3.46 L Hgb (13.5-17.5) g/dL 11.5 L Hct (40.0-50.0) % 34.8 L MCV (80-95) fL 101 H MCH (27.0-33.0) pg 33.2 H MCHC (32.0-36.0) % 33.0 RDW (11.8-14.1) % 14.4 H Plt Count (130-400) 10^3/uL 488 H MPV (8.0-11.0) fL 8.3 Immature Gran % 0.9 Neutrophils % 75.2 Lymphocytes % 15.0 Monocytes % 7.9 Eosinophils % 0.6 Basophils % 0.4 Nucleated RBC % (0.0-0.3) % 0.0 Absolute Neutrophils (1.2-6.7) 10^3/uL 8.03 H Absolute Lymphocytes (1.2-3.4) 10^3/uL 1.60 Absolute Monocytes (0.1-0.8) 10^3/uL 0.84 H Absolute Eosinophils (0.0-0.7) 10^3/uL 0.06 Absolute Basophils (0.0-0.2) 10^3/uL 0.04 VBG Lactate (0.6-1.4) mmol/L 1.0 Sodium (136-145) mmol/L 139 Potassium (3.5-5.1) mmol/L 4.3 Chloride (98-107) mmol/L 104 Carbon Dioxide (21.0-32.0) mmol/L 26.7 Anion Gap (3-11) mmol/L 8.3 BUN (7-18) mg/dL 15 Creatinine (0.70-1.30) mg/dL 1.0 Est GFR (CKD-EPI 2020) (mL/min/1.73m2) 78.49 Glucose (74-106) mg/dL 132 H Calcium (8.5-10.1) mg/dL 8.8 Total Bilirubin (0.2-1.0) mg/dL 0.3 AST (15-37) U/L 19 ALT (16-63) U/L 21 Alkaline Phosphatase (46-116) U/L 67 C-Reactive Protein (<or=0.5) mg/dL 0.88 H NT-Pro-B Natriuret Pep (<300) pg/mL 2868 H Total Protein (6.4-8.2) g/dL 6.3 L Albumin (3.4-5.0) g/dL 2.4 L Lipase (16-77) U/L 25 Medical Decision Making This dictation utilizes [id number] dictation software and may contain unedited grammatical errors. 73 y/o M presents to ED today with a chief complaint of fatigue since surgery for ruptured appy with percutaneous drain in place, on antibiotics with ceftriaxone infusion today- transitioning to PO tomorrow, lucina fever, denies nausea/vomiting, reports no change in BMs today- has increasing pedal edema in the setting of chronic atrial fibrillation- no history of CHF. Patient has significant dementia and is here with his partner. Patients' medical history: HIV in remission, anemia, IBS, atrial fibrillation. Family and social history: lives independently at-home, stays relatively active. Pertinent exam findings / vital signs include 2+ pedal pitting edema without unilateral leg swelling or skin changes of DVT, no shortness of breath or hypoxia, benign cardiopulmonary exam, diffuse abdominal tenderness with percutaneous drain in place. Differential / pathologies of concern include Percutaneous drain problem, dehydration, CHF, respiratory failure, unlikely sepsis. Diagnostic studies of: -CBC, CMP, Lactate, Lipase, UA, Trop I, BNP, CRP/ESR, CT ABD/Pelvis w Contrast, CXR. -lactate 1.0 - unlikely sepsis -benign CMP, do not suspect emergent dehydration -CBC no leukocytosis, improving -CRP mild elev, non-specific -CT shows percutaneous drain in place -CXR without pulmonary edema -Trop I neg, BNP elevated to 2800 no priors to compare Interventions of: -250mL IVF bolus, encouraged PO hydration, 20mg lasix to-go x3days, outpatient ECHO ordered. ED Course/Assessment/Plan: 73-year-old male presents with fatigue after having a ruptured appendicitis with surgery with percutaneous drain in place, draining his abscess. He has been receiving infusions of antibiotics and transitioning to p.o. tomorrow, his CBC is improving from prior values, lactate is not suggestive of sepsis and his CMP is not suggestive of profound dehydration. His chest x-ray shows no pulmonary edema but he does have 2+ pedal edema, possibly stress related from his surgery in the setting of chronic atrial fibrillation, he has never been diagnosed with CHF in the past and I do suggest that he receive an outpatient echo which was ordered. I stressed a trial of 20 mg p.o. Lasix for 3 days to test for improvement of his edema, strict return criteria for any dizziness, low blood pressure readings, developing fever. Counseled some loose stools in the setting of IBS could be a normal side effect of antibiotics. Patient's spouse verbalized understanding of the plan and return to ED criteria, he will return for any concerning changes in his baseline and will call for echo scheduling tomorrow. Findings not consistent with Hypoxic Respiratory Failure, Pulmonary Edema, Sepsis, Fever, Dehydration, Percutaneous drain misalignment. Disposition of Pedal Edema. Patient verbalized understanding of the plan and return to ED criteria and engaged in shared decision making. Medical Records Medical records reviewed: Yes I reviewed the patient's medical records. Imaging Data Radiologic Study: Attestation: I personally reviewed and interpreted this imaging study as follows: Imaging: CT Scan Radiologist's impression: Exam: CT Abdomen And Pelvis With Contrast Exam date and time: 01/02/2024 7:42 PM Age: 73 years old Clinical indication: Other: Continued abd pain, S/P appy 12 days ago; Prior surgery; Surgery date: <1 month TECHNIQUE: Imaging protocol: Computed tomography of the abdomen and pelvis with contrast. Contrast material: OMNIPAQUE 350; Contrast volume: 100 ml; Contrast route: INTRAVENOUS (IV); COMPARISON: CT ABDOMEN PELVIS W 12/19/2023 4:23 PM FINDINGS: Tubes, catheters and devices: Right ventral abdominal approach percutaneous drainage catheter within the right lower quadrant loculated fluid collection, measuring approximately 3.2 x 2.2 cm (series 4, image 46). Pleural spaces: Small bilateral pleural effusions, with associated atelectasis. Coronary arteries: Atherosclerotic disease of the visualized right coronary artery. Atherosclerotic disease of the visualized right coronary artery. Liver: Normal. Gallbladder and bile ducts: Normal. Pancreas: Normal. Spleen: Normal. Adrenal glands: Mild bilateral adrenal hyperplasia. Kidneys and ureters: Normal. Stomach and bowel: Colonic diverticulosis. Appendix: Appendix is surgically absent. Intraperitoneal space: Unremarkable. No free air. No significant fluid collection. Vasculature: Atherosclerotic disease of the abdominal aorta and iliac arteries. Lymph nodes: Unremarkable. No enlarged lymph nodes. Urinary bladder: Mild urinary bladder wall thickening, with minimal adjacent fat stranding, possibly cystitis. Reproductive: Unremarkable as visualized. Extraperitoneal space: Small amount of presacral free fluid. Bones/joints: No acute abnormality. Soft tissues: Surgical changes of midline ventral laparotomy. IMPRESSION: 1. Right ventral abdominal approach percutaneous drainage catheter within the right lower quadrant loculated fluid collection, measuring approximately 3.2 x 2.2 cm (series 4, image 46). 2. Small bilateral pleural effusions, with associated atelectasis. 3. Other (less critical/noncritical/incidental) findings as above; please refer to the body of report for further details. Dictated and Authenticated by: Romie Ramos MD. Ordering:SOWMYA Stovall MD Radiologic Study #2: Attestation: I personally reviewed and interpreted this imaging study as follows: Imaging: X-Ray Radiologist's impression: Exam: XR Chest Exam date and time: 01/02/2024 8:45 PM Age: 73 years old Clinical indication: Other: Fatigue, post-op, elevated bnp TECHNIQUE: Imaging protocol: Radiologic exam of the chest. Views: 1 view. COMPARISON: CR XR CHEST 2V PA LATERAL 12/18/2023 12:51 PM FINDINGS: Lungs: Normal. Pleural spaces: Minimal blunting of the left costophrenic angle, likely small left pleural effusion. Heart/Mediastinum: Normal. Bones/joints: Multilevel thoracic spine degenerative disc space narrowing and osteophyte formation. Degenerative changes of the acromioclavicular and glenohumeral joints, with mild joint space narrowing and osteophyte formation. IMPRESSION: Minimal blunting of the left costophrenic angle, likely small left pleural effusion. Dictated and Authenticated by: Romie Ramos MD. Ordering:SOWMYA Stovall MD Lab Data Lab results reviewed: Yes I reviewed the patient's lab results. Labs: Laboratory Tests Range/Units 01/02/24 01/02/24 19:10 21:30 WBC (4.4-10.8) 10^3/uL 10.67 RBC (4.36-5.78) 10^6/uL 3.46 L Hgb (13.5-17.5) g/dL 11.5 L Hct (40.0-50.0) % 34.8 L MCV (80-95) fL 101 H MCH (27.0-33.0) pg 33.2 H MCHC (32.0-36.0) % 33.0 RDW (11.8-14.1) % 14.4 H Plt Count (130-400) 10^3/uL 488 H MPV (8.0-11.0) fL 8.3 Immature Gran % 0.9 Neutrophils % 75.2 Lymphocytes % 15.0 Monocytes % 7.9 Eosinophils % 0.6 Basophils % 0.4 Nucleated RBC % (0.0-0.3) % 0.0 Absolute Neutrophils (1.2-6.7) 10^3/uL 8.03 H Absolute Lymphocytes (1.2-3.4) 10^3/uL 1.60 Absolute Monocytes (0.1-0.8) 10^3/uL 0.84 H Absolute Eosinophils (0.0-0.7) 10^3/uL 0.06 Absolute Basophils (0.0-0.2) 10^3/uL 0.04 VBG Lactate (0.6-1.4) mmol/L 1.0 Sodium (136-145) mmol/L 139 Potassium (3.5-5.1) mmol/L 4.3 Chloride (98-107) mmol/L 104 Carbon Dioxide (21.0-32.0) mmol/L 26.7 Anion Gap (3-11) mmol/L 8.3 BUN (7-18) mg/dL 15 Creatinine (0.70-1.30) mg/dL 1.0 Est GFR (CKD-EPI 2021) (mL/min/1.73m2) 78.49 Glucose (74-106) mg/dL 132 H Calcium (8.5-10.1) mg/dL 8.8 Total Bilirubin (0.2-1.0) mg/dL 0.3 AST (15-37) U/L 19 ALT (16-63) U/L 21 Alkaline Phosphatase (46-116) U/L 67 C-Reactive Protein (<or=0.5) mg/dL 0.88 H NT-Pro-B Natriuret Pep (<300) pg/mL 2868 H Total Protein (6.4-8.2) g/dL 6.3 L Albumin (3.4-5.0) g/dL 2.4 L Lipase (16-77) U/L 25 Urine Color (Yellow) Yellow Urine Clarity (Clear) Clear Urine pH (5-8) 6.5 Ur Specific [place] (1.005-1.025) 1.010 Urine Protein (Neg-Trace) mg/dL Negative Urine Ketones (Negative) mg/dL Negative Urine Blood (Negative) Negative Urine Nitrite (Negative) Negative Urine Bilirubin (Negative) Negative Urine Urobilinogen (Up to 0.2) mg/dL 0.2 Ur Leukocyte Esterase (Negative) Negative Urine Glucose (Negative) mg/dL Negative Quality:SDOH Health Related Social Needs: No Data to Display PFSH All Active Problems (Updated 01/02/24 @ 22:03 by DONA Ugarte) Pedal edema (Acute) Dizziness (Acute) Edema (Acute) Intra-abdominal abscess (Acute) RUQ abdominal tenderness (Acute) Abdominal bloating (Acute) Abdominal pain (Acute) Rigors (Acute) Fever (Acute) Confusion (Acute) Prolonged QT interval (Acute ~06/2023) Atrial fibrillation by electrocardiogram (Acute ~06/2023) Cataracts, bilateral (Acute) Macrocytosis without anemia (Acute ~07/2021) Type 2 diabetes mellitus without complication (Chronic ~2020) 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) Depression (Chronic 03/27/15) Pure hypercholesterolemia (Chronic 04/13/15) Memory loss (Chronic 03/27/15) [facility] 04-22-15: cerebral atrophy & white matter changes; atrophy greater than expected for age Irritable bowel syndrome with diarrhea (Acute 04/13/15) HIV (human immunodeficiency virus infection) (Acute 03/27/05) HAART w/ undetectable viral load Medical History (Updated 01/02/24 @ 22:03 by DONA Ugarte) COVID Snoring 12/21/21 [facility] [employer] Sleep - Polysomography recommended and f/u 02/19/22; normal sleep study 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) [place]aphobia= fear of bears Impaired fasting glucose (03/06/15) 03/06/15 fasting glucose 150 2014: HbA1c 6.6 [place] cardiac risk 10-20% in next 10 years (03/02/16) 13.2% in 2016; 14.7 2019 Anemia (09/13/16) IBS (irritable bowel syndrome) Mild dementia HIV (human immunodeficiency virus infection) Depression Memory loss Surgical History (Updated 12/28/23 @ 16:35 by Serena Lebron RN) History of appendectomy (12/20/23) [facility]-acute, gangenous appendicitis w/marked acute serositis Tonsillectomy and adenoidectomy Colonoscopy - MAC (11/21/16) Family History Mother Dementia Father Dementia Hyperlipidemia Sister Arthritis Psoriatic arthritis Brother No problems noted. Grandmother Diabetes Grandmother Diabetes Social History Smoking/Tobacco Use Status: Never Smoking risk assessment performed?: Yes Alcohol Intake: current Alcohol Intake frequency: a few times a month Drug use: Never Substance use type: does not use Household members: significant other Housing: house Number of Children: 0 Communication Needs: Corrective Lenses Education Level: other Current gender identity: male What is your relationship status?: living with partner How often do you talk on the phone with friends or family?: three or more times per week Panel score (0-1 are the most socially isolated patients): 2 What type of physical activity do you participate in: none Seatbelt use: always Drive intox or ride w/intox rail car driver: No Working smoke detector in home: Yes Fire extinguisher in home: Yes Carbon monox detector in home: Yes Do you feel safe at home: Yes Do you feel safe in your relationship?: Yes
--- NOTE | 2024-01-02 20:54 | DI.VRAD_ITS ---
PROCEDURE INFORMATION: Exam: XR Chest Exam date and time: 01/02/2024 8:45 PM Age: 73 years old Clinical indication: Other: Fatigue, post-op, elevated bnp TECHNIQUE: Imaging protocol: Radiologic exam of the chest. Views: 1 view. COMPARISON: CR XR CHEST 2V PA LATERAL 12/18/2023 12:51 PM FINDINGS: Lungs: Normal. Pleural spaces: Minimal blunting of the left costophrenic angle, likely small left pleural effusion. Heart/Mediastinum: Normal. Bones/joints: Multilevel thoracic spine degenerative disc space narrowing and osteophyte formation. Degenerative changes of the acromioclavicular and glenohumeral joints, with mild joint space narrowing and osteophyte formation. IMPRESSION: Minimal blunting of the left costophrenic angle, likely small left pleural effusion. Dictated and Authenticated by: Romie Ramos MD. Ordering:SOWMYA Stovall MD
[2024-01-02] MEDS: Normal Saline 250 ML IV (20:56)
[2024-01-02 21:42] LABS: Bilirubin Negative (Negative); Blood Negative (Negative); Clarity Clear (Clear); Glucose Negative (Negative); Ketones Negative (Negative); Leukocyte Esterase Negative (Negative); Nitrite Negative (Negative); Urobilinogen 0.2 mg/dL (Up to 0.2); pH 6.5 (5-8)
[2024-01-02] MEDS: Furosemide 20 MG TAB PO (22:23)
== END 2024-01-02 22:23 | disposition home or self-care (01) ==
PROVIDERS: Emergency Provider Physician Assistant; PCP Nurse Practitioner Adult Health
DX: R10.9 Unspecified abdominal pain (principal); R60.9 Edema, unspecified; R53.83 Other fatigue; I48.20 Chronic atrial fibrillation, unspecified; Z79.01 Long term (current) use of anticoagulants; Z98.890 Other specified postprocedural states
CPT/HCPCS: 36415; 80053; 83690; 84145; 96360; 96365; 99285; 71045; 74177; 81003; 83605; 83880; 85025; 86140; 99284; J0696; J3490

== ENCOUNTER → 2024-01-04 01:49 | Outpatient (CLI) | payer MEDICARE, BC, SELFPAY ==
--- NOTE | 2024-01-04 15:00 | DI.US_ITS ---
APPROVED REPORT EXAM: Comprehensive 2D, Doppler, and color-flow Echocardiogram Patient Location: Out-Patient Biology Intern: Julianne Leach RDCS (AE) Indications: Evaluate for CHF, edema, Post op 12 days abdominal surgery Other Information Study Quality: Adequate. Technically limited study due to body habitus, inability to position patient , uncooperative patient . Conclusion Normal left ventricular chamber size. Ejection fraction is 55%. Wall motion is normal. Mild concent jefe LVH Normal right ventricular size and function Both atria are normal in size There are no structural valvular abnormalities Moderate mitral and tricuspid regurgitation Normal estimated right ventricular systolic pressure 25 mmHg Mildly dilated ascending aorta 3.81 cm Wall motion Left Ventricle The left ventricle is normal size. The left ventricular systolic function is normal. The left ventric ular ejection fraction is within the normal range. Mild concentric left ventricular hypertrophy. Ther e is normal LV segmental wall motion. There is no ventricular septal defect visualized. LVEF is 55%. Right Ventricle The right ventricle is normal size. The right ventricular systolic function is normal. Atria Left atrium is mildly dilated. Right atrium is borderline dilated. The interatrial septum is intact w ith no evidence for an atrial septal defect. Aortic Valve The aortic valve is normal in structure. Aortic valve is trileaflet. There is no aortic valvular sten osis. No aortic regurgitation is present. Mitral Valve The mitral valve is normal in structure. No evidence of mitral valve stenosis. Moderate mitral regurg itation. Tricuspid Valve The tricuspid valve is normal in structure. There is no tricuspid valve stenosis. Moderate tricuspid regurgitation. Pulmonic Valve The pulmonary valve is normal in structure. There is no pulmonic valvular stenosis. There is no pulmo amna valvular regurgitation. Great Vessels The aortic root is normal in size. The ascending aorta is mildly dilated. Aortic arch is not visualiz ed. The IVC collapses <50% with normal respiration. Pericardium There is no pericardial effusion. 2D Dimensions IVSD d PLAX 1.32 cm M: 0.6-1.2 Ao Root d 3.34 cm M: 3.1 - 3.7 LVPW d PLAX 1.30 cm M: 0.6 - 1.2 Ao Asc Diam d 3.81 cm M: 2.6 - 3.4 LVID d PLAX 4.20 cm M: 4.2 - 5.8 LVDs 2.96 cm M: 2.5 - 4.0 LV EF Teichholz 56.0 % FS 28.89 % LV EDV (Teich) 76.6 mL LV ESV (Teich) 33.7 mL M-Mode TAPSE 2.11 cm (M/F) >1.7 Auto EF LV EDV A4C 89.4 mL LV EDV A2C 91.2 mL LV EDV BP 89.0 mL LV ESV A4C 40.7 mL LV ESV A2C 41.5 mL LV ESV BP 41.1 mL LVEF(%) A4C 54.5 % LVEF(%) A2C 54.5 % LVEF(%) BP 53.9 % LV SV A4C 48.7 ml LV SV A2C 49.7 ml LV SV BP 48.0 ml LV CO A4C 3.9 L/min LV CO A2C 3.1 L/min LV CO BP 3.5 L/min HR A4C 79.83 BPM HR A2C 63.03 BPM LV EDV Index (BP) LA Volume LA Length A4C 6.0 cm LA Length A2C 5.7 cm LA Area A4C s 20.86 cm2 LA Area A2C s 23.07 cm2 LA Vol A4C A-L 61.15 mL LA Vol A2C A-L 79.58 mL LA Vol Biplane A-L 72.0 mL LA Vol/BSA A4C A-L LA Vol/BSA A2C A-L LA Vol/BSA BP A-L 38.7 mL/m2 LA Vol A4C MOD 57.0 mL LA Vol A2C MOD 76.8 mL LA Vol BP MOD 68.1 mL RA Volume RA Area A4C 20.3 cm2 RA ESV A4C (A-L) 59.3mL RA Vol/BSA A4C A-L RA Length A4C 5.9 cm RA ESV A4C (MOD) 55.3mL LV Diastology MV E' lateral 0.112 (>0.1 m/s) MV E Vmax 0.86 (0.4-1.3 m/s) MV E/E' LAT 7.63 (<14) Aortic Valve AoV Vmax 1.01 m/s LVOT Vmax 0.79 m/s AoV Peak Grad 4.1 mmHg LVOT Peak Grad 2.5 mmHg AoV Area (Vmax) 2.53 cm2 LVOT VTI 0.153 m AoV VTI 0.180 m LVOT Mean Grad 1.2 mmHg AoV Mean Elvin. 0.67 m/s LVOT SV 49.47 mL AoV Mean Grad 2.0 mmHg LVOT Diam s 2.00 cm AoV Area (VTI) 2.75 cm2 Velocity Ratio 0.78 Mitral Valve MV DT 172 (160-240 msec) MV Vmax TIPS 0.90 m/s MV Mean Grad 1.0 (<2mmHg) MV VTI 0.197 m Pulmonary Valve PV Vmax 0.82 (0.5-1.5 m/s) RVOT Vmax 0.57 m/s PV Peak Grad 2.7 mmHg RVOT Peak Gr. 1.3 mmHg PV Mean Elvin 0.63 m/s RVOT VTI 0.121 m PV Mean Grad 1.7 mmHg RVOT Mean Gr. 0.8 mmHg Tricuspid Valve TV S' 0.10 m/s TR Vmax 2.37 m/s TR Peak Grad 22.4 mmHg
== END ==
PROVIDERS: PCP Nurse Practitioner Adult Health; Visit Provider Student in an Organized Health Care Education/Training Program
DX: R60.9 Edema, unspecified (principal)
CPT/HCPCS: 93306

== ENCOUNTER 2024-01-25 05:10 | Outpatient (CLI) | payer MEDICARE, BC, SELFPAY ==
--- NOTE | 2024-02-23 14:22 | TELEFU_ITS ---
Date of service: 01/25/24 Time of Service: 13:00 Nutrition Note NOTE: Pt attending nutrition appt with his brother Alejandro and supervisor maintenance and custodians Kaylen for concerns of recent unintentional wt loss, which is felt mostly has occured after appendectomy last November. Usual body weight reported as ~170lbs and most recent weight at 152.8lbs. PMH includes DMII, IBS-D, HIV, depression and memory loss. Was reported to be more on a keto diet for glucose control. Suggested to avoid this high-fat diet due to most likely will contribute to diarrhea. Takes Boost carb control TID @ 30g protein each. meals reported are varied and nutritious, but overall diet appears low in produce/veggies Reports of regurgitation - doesn't chew well per Flora - tries to keeps food choices soft. Glucose record brought with them and FBG ususally in the 130's Doesn't take mirilax anymore. Suggested psyllium for bulking as well as trial of OTC Banatrol flakes. Supplements include MVI probiotic, Bcomplex, D3, Lajkwl-[id number]-[id number]. Reviewed carbs for wt gain but keeping them less refined as possible considering his glucose mgt goals - oats, quinoa, starchy veggies like BN squash and sweet potato with some added fat. Time Spent in Nutritional Counseling and Treatment: 30 min
== END 2024-01-25 05:11 | disposition home or self-care (01) ==
PROVIDERS: PCP Nurse Practitioner Adult Health; Visit Provider Dietitian, Registered
DX: R63.4 Abnormal weight loss (principal)
CPT/HCPCS: 00123; 97802

== ENCOUNTER 2024-02-22 14:56 | Outpatient (REF) | payer MEDICARE, BC, SELFPAY ==
[2024-02-22 13:58] LABS: C Diff PCR Negative (Negative)
[2024-02-23 14:06] LABS: Helicobacter pylori Ag, Feces Negative (Negative)
== END 2024-02-22 14:57 | disposition home or self-care (01) ==
LOC: LBN 14:56
PROVIDERS: PCP Nurse Practitioner Adult Health; Visit Provider Nurse Practitioner Adult Health
DX: R19.7 Diarrhea, unspecified (principal)
CPT/HCPCS: 87338; 87493

== ENCOUNTER → 2024-04-30 11:21 | Outpatient (BNVA) | payer MEDICARE, BC, SELFPAY | PROVIDERS: PCP Nurse Practitioner Adult Health; Referring Provider Nurse Practitioner Adult Health; Visit Provider Internal Medicine Cardiovascular Disease | DX: I48.91 Unspecified atrial fibrillation (principal) | CPT/HCPCS: 99213 ==